=== PATIENT | female | born 1970 | race African-American/Black ===

== ENCOUNTER 2017-06-16 00:45 | Inpatient (IN) | payer OTHER ==
[2017-06-16] VITALS (8 sets, daily range): BP systolic 102–148; BP diastolic 62–95
[~2017-06-16] VITALS: Ht 160 cm; Wt 156.9 kg
[~2017-06-16 00:45] MED LIST: BACITRACIN1 APPLIC TOPIC; BACTRIM DS TAB1 EAC1 ORAL; CLINDAMYCIN HC300 MG ORAL; CLOTRIMAZOLE15 GM TOPIC; CYCLOBENZAPRINE10 MG ORAL; IBUPROFEN600 MG ORAL; KEFLEX500 MG ORAL; LASIX20 M1 ORAL; NKM; TRAMADOL HCL50 MG ORAL
[2017-06-16] MEDS ORDERED: Albuterol ud Inhalation HHN ONE (01:15)
--- NOTE | 2017-06-16 01:15 | Emergency Room Report ---
History of Present Illness General Chief Complaint: Dyspnea/Respdistress Source: Patient Present Illness HPI This is a 46-year-old female with no past medical history. She does have history of morbid obesity with a BMI of 62. She presents with acute onset of shortness of breath. She is walking up the steps and felt acute onset of shortness of breath around 11 PM. No cough or congestion. No runny nose. No chest pain. Also complaining of left calf pain. Pain just started about a week ago and went away. That she's been complaining of left calf pain all day today. Pain is 8 out of 10. She quit smoking about 5 years ago. No family history of blood clot other in the distant cousin. No history of recent surgery or prolonged immobilization. No history of control pill. Patient also complained of sore throat for the last 2 weeks. Worse with swallowing. No fever chills but no nausea no vomiting. No cough or congestion. Allergies: Coded Allergies: No Known Allergies (Unverified , 08/31/14) Patient History Past Medical History: none, see triage record, old chart reviewed Past Surgical History: none Pertinent Family History: none Social History: Denies: drug use Last Menstrual Period: 3 yrs ago Now: No Immunizations: other Reviewed Nursing Documentation: PMH: Agreed; PSxH: Agreed Nursing Documentation-PMH Hx Diabetes: No - CELLULITIS on Lt lower leg in 2012 Review of Systems Eye: Denies: eye pain, blurred vision ENT: Denies: ear pain, nose congestion, throat swelling Respiratory: Reports: shortness of breath; Denies: cough Cardiovascular: Denies: chest pain, palpitations Gastrointestinal: Denies: abdominal pain, diarrhea, nausea, vomiting Musculoskeletal: Denies: back pain, joint pain Skin: Denies: rash Neurological: Denies: headache, numbness Endocrine: Denies: increased thirst, increased urine Hematologic/Lymphatic: Denies: easy bruising All Other Systems: negative except mentioned in HPI Physical Exam Vital Signs Date Time Temp Pulse Resp B/P (MAP) Pulse Ox O2 Delivery O2 Flow Rate FiO2 06/16/17 00:55 97.6 89 18 148/95 90 Room Air 97.5 vitals with hypoxia Sp02 EP Interpretation: reviewed, normal General Appearance: well appearing, alert, mild distress, obese Head: normocephalic, atraumatic Eyes: bilateral eye PERRL, bilateral eye EOMI ENT: hearing grossly normal, other - thrush on tongue Neck: full range of motion, supple, no meningismus Respiratory: chest non-tender, normal breath sounds, decreased breath sounds Cardiovascular #1: regular rate, rhythm, no murmur Gastrointestinal: normal bowel sounds, non tender, no mass, no organomegaly, no bruit, non-distended Musculoskeletal: back normal, gait/station normal, normal range of motion, other - left calf: no edema. NVI Neurologic: alert, oriented x3 Psychiatric: mood/affect normal Skin: warm/dry Medical Decision Making Diagnostic Impression: Primary Impression: Pulmonary embolism Qualified Codes: I26.99 - Other pulmonary embolism without acute cor pulmonale Additional Impressions: Morbid obesity with BMI of 60.0-69.9, adult Acute hyperglycemia ER Course Patient presents with chest pain and shortness of breath. CT scan showed left pulmonary emboli. Her calf pain is probably a DVT. Patient is dyspneic with any exertion. Lovenox started. Will admit for anticoagulation and further workup. Laboratory Tests Test 06/16/17 01:30 06/16/17 01:50 White Blood Count 6.6 K/UL (4.8-10.8) Red Blood Count 4.51 M/UL (4.20-5.40) Hemoglobin 12.1 G/DL (12.0-16.0) Hematocrit 37.4 % (37.0-47.0) Mean Corpuscular Volume 83 FL (80-99) Mean Corpuscular Hemoglobin 26.9 PG (27.0-31.0) L Mean Corpuscular Hemoglobin Concent 32.4 G/DL (32.0-36.0) Red Cell Distribution Width 14.2 % (11.6-14.8) Platelet Count 139 K/UL (150-450) L Mean Platelet Volume 9.5 FL (6.5-10.1) Neutrophils (%) (Auto) 60.3 % (45.0-75.0) Lymphocytes (%) (Auto) 31.4 % (20.0-45.0) Monocytes (%) (Auto) 5.6 % (1.0-10.0) Eosinophils (%) (Auto) 2.0 % (0.0-3.0) Basophils (%) (Auto) 0.7 % (0.0-2.0) Prothrombin Time 10.1 SEC (9.30-11.50) Prothromb Time International Ratio 1.0 (0.9-1.1) Activated Partial Thromboplast Time 24 SEC (23-33) D-Dimer 6.47 mg/L FEU (0.00-0.49) H Sodium Level 140 MMOL/L (136-145) Potassium Level 3.6 MMOL/L (3.5-5.1) Chloride Level 105 MMOL/L (98-107) Carbon Dioxide Level 28 MMOL/L (21-32) Anion Gap 7 mmol/L (5-15) Blood Urea Nitrogen 11 mg/dL (7-18) Creatinine 1.1 MG/DL (0.55-1.30) Estimat Glomerular Filtration Rate > 60 mL/min (>60) Glucose Level 215 MG/DL (74-106) H Calcium Level 9.2 MG/DL (8.5-10.1) Total Bilirubin 0.2 MG/DL (0.2-1.0) Aspartate Amino Transf (AST/SGOT) 34 U/L (15-37) Alanine Aminotransferase (ALT/SGPT) 48 U/L (12-78) Alkaline Phosphatase 93 U/L (46-116) Total Creatine Kinase 172 U/L (26-308) Creatine Kinase MB 0.7 NG/ML (0.0-3.6) Creatine Kinase MB Relative Index 0.4 Troponin I 0.019 ng/mL (0.000-0.056) Pro-B-Type Natriuretic Peptide 36 pg/mL (0-125) Total Protein 7.3 G/DL (6.4-8.2) Albumin 3.3 G/DL (3.4-5.0) L Globulin 4.0 g/dL Albumin/Globulin Ratio 0.8 (1.0-2.7) L HIV (1&2) Antibody Rapid Negative (NEGATIVE) Urine Color Pale yellow Urine Appearance Clear Urine pH 6 (4.5-8.0) Urine Specific [place] 1.015 (1.005-1.035) Urine Protein Negative (NEGATIVE) Urine Glucose (UA) Negative (NEGATIVE) Urine Ketones Negative (NEGATIVE) Urine Occult Blood Negative (NEGATIVE) Urine Nitrite Negative (NEGATIVE) Urine Bilirubin Negative (NEGATIVE) Urine Urobilinogen Normal MG/DL (0.0-1.0) Urine Leukocyte Esterase Negative (NEGATIVE) Urine HCG, Qualitative Negative (NEGATIVE) Lab Results Impression labs with elevated d-dimer EKG Diagnostic Results Rate: normal Rhythm: NSR ST Segments: other - NSST changes Rhythm Strip Diag. Results Rhythm Strip Time: 03:58 EP Interpretation: yes Rate: 100 Rhythm: NSR, no PVC's, no ectopy Chest X-Ray Diagnostic Results Chest X-Ray Diagnostic Results : Chest X-Ray Ordered: Yes # of Views/Limited/Complete: 1 View Indication: Shortness of Breath EP Interpretation: Yes Interpretation: no consolidation, no effusion, no pneumothorax, no acute cardiopulmonary disease Impression: No acute disease Electronically Signed by: J Carlos Aguilera MD CT/MRI/US Diagnostic Results CT/MRI/US Diagnostic Results : Imaging Test Ordered: CT chest Impression Read by radiologist. Small pulmonary emboli in the distal left lobar pulmonary artery extending to segmental pulmonary artery supplying the left upper lobe. Lungs clear. Last Vital Signs Date Time Temp Pulse Resp B/P (MAP) Pulse Ox O2 Delivery O2 Flow Rate FiO2 06/16/17 00:55 97.6 89 18 148/95 90 Room Air 97.5 Status: improved Disposition: ADMITTED INPATIENT Condition: Serious J CARLOS AGUILERA M.D. Jun 16, 2017 01:15
[2017-06-16 01:54] LABS: BASOPHILS % (AUTO) 0.7 % (0.0-2.0); HEMATOCRIT 37.4 % (37.0-47.0); HEMOGLOBIN 12.1 G/DL (12.0-16.0); LYMPHOCYTES % (AUTO) 31.4 % (20.0-45.0); MEAN CORPUSCULAR VOLUME 83 FL (80-99); MONOCYTES % (AUTO) 5.6 % (1.0-10.0); NEUTROPHILS % (AUTO) 60.3 % (45.0-75.0); PLATELET COUNT 139 K/UL (150-450); RED BLOOD COUNT 4.51 M/UL (4.20-5.40); RED CELL DISTRIBUTION WIDTH 14.2 % (11.6-14.8); WHITE BLOOD COUNT 6.6 K/UL (4.8-10.8)
[2017-06-16 01:57] LABS: ANION GAP 7 mmol/L (5-15); BLOOD UREA NITROGEN 11 mg/dL (7-18); CALCIUM 9.2 MG/DL (8.5-10.1); CARBON DIOXIDE 28 MMOL/L (21-32); CHLORIDE 105 MMOL/L (98-107); CREATININE 1.1 MG/DL (0.55-1.30); POTASSIUM 3.6 MMOL/L (3.5-5.1); SODIUM 140 MMOL/L (136-145)
[2017-06-16 02:11] LABS: APPEARANCE,URINE CLEAR; BILIRUBIN, URINE NEGATIVE (NEGATIVE); COLOR,URINE PALE YELLOW; GLUCOSE, URINE (UA) NEGATIVE (NEGATIVE); KETONES,URINE NEGATIVE (NEGATIVE); LEUKOCYTE ESTERASE ,URINE NEGATIVE (NEGATIVE); NITRITE,URINE NEGATIVE (NEGATIVE); PH,URINE 6 (4.5-8.0); UROBILINOGEN,URINE NORMAL MG/DL (0.0-1.0)
[2017-06-16 02:13] LABS: ALANINE AMINOTRANSFERASE 48 U/L (12-78); ALBUMIN 3.3 G/DL (3.4-5.0); ALBUMIN/GLOBULIN RATIO 0.8 (1.0-2.7); ALKALINE PHOSPHATASE 93 U/L (46-116); ASPARTATE AMINO TRANSFERASE 34 U/L (15-37); BILIRUBIN,TOTAL 0.2 MG/DL (0.2-1.0); CKMB 0.7 NG/ML (0.0-3.6); CREATINE KINASE 172 U/L (26-308)
[2017-06-16 02:15] LABS: PROTEIN,URINE NEGATIVE (NEGATIVE)
[2017-06-16] MEDS ORDERED: Enoxaparin 150mg Inj SUBQ ONE (04:00)
[2017-06-16] MEDS ORDERED: Enoxaparin 100mg Inj SUBQ ONE (04:06)
[2017-06-16] MEDS ORDERED: Enoxaparin 30mg Inj SUBQ ONE (04:13)
[2017-06-16] MEDS ORDERED: Enoxaparin 120 mg inj SUBQ ONE (04:13)
[2017-06-16] MEDS ORDERED: Albuterol/Ipratropium 3ml neb HHN PRN (06:00)
[2017-06-16] MEDS ORDERED: Miralax 17gm pkt ORAL PRN (06:00)
[2017-06-16] MEDS: Docusate 100mg cap ORAL SCH ×2 (09:36→22:53)
[2017-06-16 09:55] LABS: CHOLESTEROL 185 MG/DL (< 200); HDL CHOLESTEROL 53 MG/DL (40-60); TRIGLYCERIDES 151 MG/DL (30-150)
--- NOTE | 2017-06-16 10:59 | Diagnostic Imaging Report ---
ndication: Shortness of breath Technique: IV administration nonionic contrast. Spiral acquisitions obtained from the lung bases to the lung apices. Multiplanar and 3-D reconstructions were generated. Total dose length product 1498.51 mGycm. CTDIvol(s) 45.81 mGy. Dose reduction achieved using automated exposure control Comparison: none Findings: Pulmonary arterial opacification is suboptimal. Emboli are seen within the bilateral upper lobe pulmonary arteries and within the right middle lobe pulmonary arteries. Due to the poor opacification other more peripheral emboli cannot be confidently excluded. The pulmonary arteries are normal in caliber. There is no right ventricular dilatation. No evidence of thoracic aortic aneurysm or dissection. The lungs are clear. No infiltrates, effusions, or congestion. Normal heart size. No pericardial effusion. No mediastinal or hilar mass or adenopathy. No axillary or chest wall mass or adenopathy. The included upper abdominal viscera demonstrate demonstrate mild fatty hepatic change. Impression: Positive for bilateral upper lobe pulmonary emboli, as described Clear lungs Mild fatty liver This agrees with the preliminary interpretation provided overnight by [facility] teleradiology service, with minor discrepancy. The CT scanner at [facility] is accredited by the [employer] and the scans are performed using protocols designed to limit radiation exposure to as low as reasonably achievable to attain images of sufficient resolution adequate for diagnostic evaluation.
--- NOTE | 2017-06-16 11:41 | Diagnostic Imaging Report ---
Indication: Shortness of breath Technique: One view of the chest Comparison: 11/30/2015 Findings: Lungs and pleural spaces are clear. Heart size is upper limits normal . No significant change Impression: No acute process
--- NOTE | 2017-06-16 13:41 | History and Physical ---
History of Present Illness General Date patient seen: Jun 16, 2017 Time patient seen: 13:41 Reason for Hospitalization: Dyspnea/Resp distress Present Illness HPI 46y/o morbidly obese female who presents with acute SOB. Pt nots LLE calf pain for the past few days. She then suddenly felt SOB whlie walking up stairs. 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 Denies f/c, n/v, d /c, chest pain. C/o cough, sore throat. No hemoptysis noted. Denies trauma, falls, recent flight travel. Denies h/o DVT/PE. Denies tobacco abuse. In ED, pt had elevated D-dimer. CT angio showed e/o b/l PE. Venous duple neg for DVT. Pt started on lovenox. Allergies: Coded Allergies: No Known Allergies (Unverified , 08/31/14) Medication History Scheduled Clindamycin Hcl (Clindamycin Hcl), 300 MG ORAL THREE TIMES A DAY Clotrimazole* (Lotrimin*), 1 APPLIC TOPIC TWICE A DAY Furosemide* (Lasix*), 20 MG ORAL DAILY No Known Medications* (NKM - No Known Medications*), 0 ., (Reported) Patient History History Provided By: Patient, Friend Healthcare decision maker Resuscitation status Full Code Advanced Directive on File Past Medical/Surgical History Past Medical/Surgical History: (1) Morbid obesity with BMI of 60.0-69.9, adult (2) Cellulitis of left lower extremity Social History Social History: (1) No significant social history Review of Systems Constitutional: Reports: no symptoms Eye: Reports: no symptoms ENT: Reports: throat pain Respiratory: Reports: cough, shortness of breath, HSIEH Cardiovascular: Reports: no symptoms Gastrointestinal: Reports: no symptoms Genitourinary: Reports: no symptoms Musculoskeletal: Reports: muscle pain Skin: Reports: no symptoms Psychiatric: Reports: no symptoms Neurological: Reports: no symptoms Endocrine: Reports: no symptoms Hematologic/Lymphatic: Reports: no symptoms Physical Exam Physical Exam Narrative General: alert, cooperative, no distress, appears stated age, morbidly obese Head: normocephalic, without obvious abnormality, atraumatic Eyes: conjunctivae/corneas clear. PERRL, EOM's intact Throat: lips, mucosa, and tongue normal. MMM Neck: supple, symmetrical, trachea midline, and no JVD Lungs: clear to auscultation bilaterally Heart: regular rate and rhythm, S1, S2 normal, no murmur, click, rub or gallop Abdomen: soft, non-tender, non-distended, bowel sounds normal; no masses or organomegaly Extremities: extremities normal, atraumatic, no cyanosis or edema Pulses: 2+ and symmetric Skin: skin color, texture, turgor normal; no rashes or lesions Neurologic: grossly normal, no focal deficits Last 24 Hour Vital Signs Date Time Temp Pulse Resp B/P (MAP) Pulse Ox O2 Delivery O2 Flow Rate FiO2 06/16/17 11:43 97.3 72 20 112/64 99 4.0 97.3 06/16/17 08:10 97.5 60 17 121/62 99 Room Air 3.0 21 97.5 06/16/17 07:27 97.5 60 17 121/62 99 Room Air 3.0 21 97.5 06/16/17 05:27 61 15 102/81 99 Room Air 06/16/17 03:51 94 16 146/76 96 Nasal Cannula 3.0 06/16/17 01:55 89 20 Room Air 21 06/16/17 01:55 97.5 89 20 148/95 95 Room Air 21 97.5 06/16/17 01:40 91 20 97 Room Air 21 06/16/17 01:31 89 20 Room Air 21 06/16/17 01:30 89 20 95 Room Air 21 06/16/17 00:55 97.6 89 18 148/95 90 Room Air 97.5 Laboratory Tests Test 06/16/17 01:30 06/16/17 01:50 White Blood Count 6.6 K/UL (4.8-10.8) Red Blood Count 4.51 M/UL (4.20-5.40) Hemoglobin 12.1 G/DL (12.0-16.0) Hematocrit 37.4 % (37.0-47.0) Mean Corpuscular Volume 83 FL (80-99) Mean Corpuscular Hemoglobin 26.9 PG (27.0-31.0) L Mean Corpuscular Hemoglobin Concent 32.4 G/DL (32.0-36.0) Red Cell Distribution Width 14.2 % (11.6-14.8) Platelet Count 139 K/UL (150-450) L Mean Platelet Volume 9.5 FL (6.5-10.1) Neutrophils (%) (Auto) 60.3 % (45.0-75.0) Lymphocytes (%) (Auto) 31.4 % (20.0-45.0) Monocytes (%) (Auto) 5.6 % (1.0-10.0) Eosinophils (%) (Auto) 2.0 % (0.0-3.0) Basophils (%) (Auto) 0.7 % (0.0-2.0) Prothrombin Time 10.1 SEC (9.30-11.50) Prothromb Time International Ratio 1.0 (0.9-1.1) Activated Partial Thromboplast Time 24 SEC (23-33) D-Dimer 6.47 mg/L FEU (0.00-0.49) H Sodium Level 140 MMOL/L (136-145) Potassium Level 3.6 MMOL/L (3.5-5.1) Chloride Level 105 MMOL/L (98-107) Carbon Dioxide Level 28 MMOL/L (21-32) Anion Gap 7 mmol/L (5-15) Blood Urea Nitrogen 11 mg/dL (7-18) Creatinine 1.1 MG/DL (0.55-1.30) Estimat Glomerular Filtration Rate > 60 mL/min (>60) Glucose Level 215 MG/DL (74-106) H Hemoglobin A1c 7.6 % (4.3-6.0) H Calcium Level 9.2 MG/DL (8.5-10.1) Total Bilirubin 0.2 MG/DL (0.2-1.0) Aspartate Amino Transf (AST/SGOT) 34 U/L (15-37) Alanine Aminotransferase (ALT/SGPT) 48 U/L (12-78) Alkaline Phosphatase 93 U/L (46-116) Total Creatine Kinase 172 U/L (26-308) Creatine Kinase MB 0.7 NG/ML (0.0-3.6) Creatine Kinase MB Relative Index 0.4 Troponin I 0.019 ng/mL (0.000-0.056) Pro-B-Type Natriuretic Peptide 36 pg/mL (0-125) Total Protein 7.3 G/DL (6.4-8.2) Albumin 3.3 G/DL (3.4-5.0) L Globulin 4.0 g/dL Albumin/Globulin Ratio 0.8 (1.0-2.7) L Triglycerides Level 151 MG/DL (30-150) H Cholesterol Level 185 MG/DL (< 200) LDL Cholesterol 118 mg/dL (<100) H HDL Cholesterol 53 MG/DL (40-60) Cholesterol/HDL Ratio 3.5 (3.3-4.4) Thyroid Stimulating Hormone (TSH) 1.136 uiU/mL (0.358-3.740) HIV (1&2) Antibody Rapid Negative (NEGATIVE) Urine Color Pale yellow Urine Appearance Clear Urine pH 6 (4.5-8.0) Urine Specific [place] 1.015 (1.005-1.035) Urine Protein Negative (NEGATIVE) Urine Glucose (UA) Negative (NEGATIVE) Urine Ketones Negative (NEGATIVE) Urine Occult Blood Negative (NEGATIVE) Urine Nitrite Negative (NEGATIVE) Urine Bilirubin Negative (NEGATIVE) Urine Urobilinogen Normal MG/DL (0.0-1.0) Urine Leukocyte Esterase Negative (NEGATIVE) Urine HCG, Qualitative Negative (NEGATIVE) Height (Feet): 5 Height (Inches): 3.00 Weight (Pounds): 346 Medications Current Medications Medications (Trade) Dose Ordered Sig/Milo Route PRN Reason Start Time Stop Time Status Last Admin Dose Admin Acetaminophen (Tylenol) 650 mg Q4H PRN ORAL Mild Pain (Pain Scale 1-3) 06/16/17 06:00 07/16/17 05:59 Acetaminophen (Tylenol) 650 mg Q4H PRN ORAL fever 06/16/17 06:00 07/16/17 05:59 Albuterol/ Ipratropium (Albuterol/ Ipratropium) 3 ml Q4H PRN HHN Shortness of Breath 06/16/17 06:00 06/21/17 05:59 Bisacodyl (Dulcolax) 10 mg DAILYPRN PRN RECTAL Constipation 06/16/17 06:00 07/16/17 05:59 Dextrose (Dextrose 50%) 25 ml STAT PRN IV Hypoglycemia 06/16/17 06:00 07/16/17 05:59 Dextrose (Dextrose 50%) 50 ml STAT PRN IV Hypoglycemia 06/16/17 06:00 07/16/17 05:59 Docusate Sodium (Colace) 100 mg EVERY 12 HOURS ORAL 06/16/17 09:00 07/16/17 08:59 06/16/17 09:36 Enoxaparin Sodium (Lovenox) 160 mg EVERY 12 HOURS SUBQ 06/16/17 09:00 07/16/17 08:59 UNV Ondansetron HCl (Zofran) 4 mg Q6H PRN IVP Nausea & Vomiting 06/16/17 06:00 07/16/17 05:59 Pantoprazole (Protonix) 40 mg ACBREAKFAST ORAL 06/16/17 06:30 07/16/17 06:29 06/16/17 09:36 Polyethylene Glycol (Miralax) 17 gm DAILYPRN PRN ORAL Constipation 06/16/17 06:00 07/16/17 05:59 Assessment/Plan Problem List: (1) Pulmonary embolism ICD Codes: I26.99 - Other pulmonary embolism without acute cor pulmonale SNOMED: 18290680, 560625288 Qualifiers: Qualified Codes: I26.99 - Other pulmonary embolism without acute cor pulmonale (2) Elevated troponin ICD Codes: R74.8 - Abnormal levels of other serum enzymes SNOMED: 638281075, 792134323, 441300127 (3) DM2 (diabetes mellitus, type 2) ICD Codes: E11.9 - Type 2 diabetes mellitus without complications SNOMED: 39333950 (4) Morbid obesity with BMI of 60.0-69.9, adult ICD Codes: E66.01 - Morbid (severe) obesity due to excess calories; Z68.44 - Body mass index (BMI) 60.0-69.9, adult SNOMED: 488815657, 248482027 Status: stable Assessment/Plan Admit to tele Pulmonology and heme/onc consulted Cont lovenox per pharmacy for treatment of PE Trend trop/EKG (likely demand ischemia in setting of PE) Check TTE Cardiology consulted Pt w/ new diagnosis of DM2 w/ A1C 7.6. Will d/w pt regarding starting treatment MINISTERIO Diabetic teaching Scratch Finisher consult Community Relations Representative on exercise, weight loss Possible d/c tomorrow on oral anticoagulation FULL CODE D/w pt, RN, pulmonology regarding mgmt and dispo Giuliano Blackwell M.D. Jun 16, 2017 13:41
--- NOTE | 2017-06-16 14:13 | Consultation ---
Consult Note Consult Note PULMONARY CONSULTATION REFERRING PHYSICIAN: Giuliano Blackwell MD REASON FOR CONSULTATION: b LE HPI: 46 F h/o morbid obesity, non-smoker h/o LLE cellulitis in the past p/w acute LLE calf pain and SOB. No GIBBS, no dizziness, no CP, no F/C, no cough, no wheezing. No recent travel. 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 She denies any trauma or injury. Pain and SOB both acutely occurred while walking up stairs. No FHx or personal h/o VTE other than a cousin with DVT. No h/o T/E/D use. W/U in the ER revealed an elevated D-dimer, neg Duplex, CT-A with b PE and TTE without e/o RV strain or failure. PMH: Morbid obesity, LLE cellulitis in the past, DDD, DJD PSH: C/X x 5 ALL: NKDA Active Scripts Medications Dose Route/Sig Max Daily Dose Days Date Category Clindamycin Hcl (Clindamycin HCl) 300 Mg Capsule 300 Mg ORAL THREE TIMES A DAY 11/30/15 Rx Lotrimin* (Clotrimazole) 15 Gm Cream..g. 1 Applic TOPIC TWICE A DAY 11/30/15 Rx Lasix* (Furosemide) 20 Mg Tablet 20 Mg ORAL DAILY 11/30/15 Rx NKM - No Known Medications* (No Known Medications*) . 0 . 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6 89 18 148/95 90 Room Air 97.5 NAD, AAOx3, obese female NC/AT, OPC c MMM, MP 4 Supple s LAD or JVD CTA RRR S/NT/ND c NABS No C/C/E CT-A: Extensive b LE Duplex: Tech difficulty study, no DVT Laboratory Tests Test 06/16/17 01:30 06/16/17 01:50 White Blood Count 6.6 K/UL (4.8-10.8) Red Blood Count 4.51 M/UL (4.20-5.40) Hemoglobin 12.1 G/DL (12.0-16.0) Hematocrit 37.4 % (37.0-47.0) Mean Corpuscular Volume 83 FL (80-99) Mean Corpuscular Hemoglobin 26.9 PG (27.0-31.0) L Mean Corpuscular Hemoglobin Concent 32.4 G/DL (32.0-36.0) Red Cell Distribution Width 14.2 % (11.6-14.8) Platelet Count 139 K/UL (150-450) L Mean Platelet Volume 9.5 FL (6.5-10.1) Neutrophils (%) (Auto) 60.3 % (45.0-75.0) Lymphocytes (%) (Auto) 31.4 % (20.0-45.0) Monocytes (%) (Auto) 5.6 % (1.0-10.0) Eosinophils (%) (Auto) 2.0 % (0.0-3.0) Basophils (%) (Auto) 0.7 % (0.0-2.0) Prothrombin Time 10.1 SEC (9.30-11.50) Prothromb Time International Ratio 1.0 (0.9-1.1) Activated Partial Thromboplast Time 24 SEC (23-33) D-Dimer 6.47 mg/L FEU (0.00-0.49) H Sodium Level 140 MMOL/L (136-145) Potassium Level 3.6 MMOL/L (3.5-5.1) Chloride Level 105 MMOL/L (98-107) Carbon Dioxide Level 28 MMOL/L (21-32) Anion Gap 7 mmol/L (5-15) Blood Urea Nitrogen 11 mg/dL (7-18) Creatinine 1.1 MG/DL (0.55-1.30) Estimat Glomerular Filtration Rate > 60 mL/min (>60) Glucose Level 215 MG/DL (74-106) H Hemoglobin A1c 7.6 % (4.3-6.0) H Calcium Level 9.2 MG/DL (8.5-10.1) Total Bilirubin 0.2 MG/DL (0.2-1.0) Aspartate Amino Transf (AST/SGOT) 34 U/L (15-37) Alanine Aminotransferase (ALT/SGPT) 48 U/L (12-78) Alkaline Phosphatase 93 U/L (46-116) Total Creatine Kinase 172 U/L (26-308) Creatine Kinase MB 0.7 NG/ML (0.0-3.6) Creatine Kinase MB Relative Index 0.4 Troponin I 0.019 ng/mL (0.000-0.056) Pro-B-Type Natriuretic Peptide 36 pg/mL (0-125) Total Protein 7.3 G/DL (6.4-8.2) Albumin 3.3 G/DL (3.4-5.0) L Globulin 4.0 g/dL Albumin/Globulin Ratio 0.8 (1.0-2.7) L Triglycerides Level 151 MG/DL (30-150) H Cholesterol Level 185 MG/DL (< 200) LDL Cholesterol 118 mg/dL (<100) H HDL Cholesterol 53 MG/DL (40-60) Cholesterol/HDL Ratio 3.5 (3.3-4.4) Thyroid Stimulating Hormone (TSH) 1.136 uiU/mL (0.358-3.740) HIV (1&2) Antibody Rapid Negative (NEGATIVE) Urine Color Pale yellow Urine Appearance Clear Urine pH 6 (4.5-8.0) Urine Specific [place] 1.015 (1.005-1.035) Urine Protein Negative (NEGATIVE) Urine Glucose (UA) Negative (NEGATIVE) Urine Ketones Negative (NEGATIVE) Urine Occult Blood Negative (NEGATIVE) Urine Nitrite Negative (NEGATIVE) Urine Bilirubin Negative (NEGATIVE) Urine Urobilinogen Normal MG/DL (0.0-1.0) Urine Leukocyte Esterase Negative (NEGATIVE) Urine HCG, Qualitative Negative (NEGATIVE) Assessment/Plan ASSESSMENT: 46 F non-smoker with a h/o morbid obesity p/w acute L calf pain & SOB noted to have b PE without e/o DVT and without RV strain. She is hemodynamically stable. 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 on U/S, ? whether LE clot was initially there (or clot in transit) and embolized distally without residual clot or just poor study -Morbid obesity -Likely ALISIA/OHV -H/O LLE cellulitis -DM PLAN -ABG -F/U repeat ECG/trop -Tele -Continue LMWH for now, will likely start NOAC tomorrow -Will need at least 3-6 months of A/C -Check plain film LLE to R/O occult fx or trauma -Weight loss, diet and exercise -Can consider outpatient hypercoag w/u -Patient encouraged to ambulate frequently Katy Sands MD, [facility] Pulmonary & Critical Care Medicine KATY SANDS M.D. Jun 16, 2017 14:13
--- NOTE | 2017-06-16 16:52 | Diagnostic Imaging Report ---
Indication: Reason For Exam: PAIN Technique: 2 views of the left tibia and fibula Comparison: none Findings: Small anterior calcifications likely reflect tiny phleboliths. No acute fractures. No dislocations. No radiopaque foreign body Impression: Negative
[2017-06-16] MEDS: Enoxaparin 80mg Inj SUBQ SCH (17:26)
[2017-06-16] MEDS: NovoLOG Insulin Flexpen SUBQ SCH ×2 (17:29→21:00)
[2017-06-16] MEDS ORDERED: Chloraseptic Spray 20mL Bottle ORAL PRN (17:50)
[2017-06-16 20:33] LABS: ALANINE AMINOTRANSFERASE 45 U/L (12-78); ALBUMIN 3.2 G/DL (3.4-5.0); ALKALINE PHOSPHATASE 87 U/L (46-116); ASPARTATE AMINO TRANSFERASE 22 U/L (15-37); BILIRUBIN,DIRECT 0.1 MG/DL (0.0-0.3); BILIRUBIN,TOTAL 0.3 MG/DL (0.2-1.0)
[2017-06-17] VITALS: BP 138/95
[2017-06-17] MEDS: Warfarin Sodium 5mg ORAL SCH ×2 (00:55→17:14)
--- NOTE | 2017-06-17 06:00 | Consultation ---
DATE OF CONSULTATION: 06/16/2017 ADMITTING PHYSICIAN: Esme Wu M.D. CONSULTING PHYSICIAN: Alek Green M.D. REQUESTING PHYSICIAN: Esme Wu M.D. REASON FOR CONSULTATION: Bilateral pulmonary emboli. HISTORY OF PRESENT ILLNESS: Dear Dr. Esme Wu, Today, I had an opportunity to see one of your patients, who as you are aware is a 46-year-old delightful female without any significant past medical history except history of obesity. The patient presents with acute onset of shortness of breath. She was working upstairs and felt acute onset of shortness of breath. The patient has been complaining of left calf pain all day before it happened. The patient has a history of smoking, but quit five years ago. The patient denies any family history of blood clots. No history of hormonal use. No history of control pills use. No history of recent surgery or prolonged immobilization. CT scan angio of the chest revealed bilateral pulmonary emboli. My service was called to handle the issue of anticoagulation for bilateral pulmonary emboli, rule out hypercoagulable state. PAST MEDICAL HISTORY: 1. Obesity. 2. History of smoking, but quit several years ago. 3. History of cellulitis of left lower extremities in 2012. MEDICATIONS: 1. Coumadin. 2. Insulin. 3. Lovenox. 4. Docusate. 5. Protonix. 6. Albuterol. 7. Tylenol. 8. Bisacodyl. 9. Zofran. 10. Dextrose. FAMILY HISTORY: Noncontributory. SOCIAL HISTORY: History of smoking, but quit several years ago. No history of alcohol abuse. No history of illicit drug use. REVIEW OF SYSTEMS: GENERAL: The patient not in any significant distress, but looks chronically ill. RESPIRATORY: Mild shortness of breath on exertion. MUSCULOSKELETAL: The patient claimed muscle aches and back pain. PHYSICAL EXAMINATION: VITAL SIGNS: T-max 97 degrees, respiratory rate 20, heart rate 80, and blood pressure 130/80. HEENT: Head, normocephalic and atraumatic. NECK: Supple. LUNGS: Decreased breath sounds bilaterally with a few rhonchi in the base. HEART: S1 and S2 regular. ABDOMEN: Soft, benign. No organomegaly present. Bowel sounds present. EXTREMITIES: No cyanosis, clubbing, or edema. LABORATORY DATA: WBC 6.6, hemoglobin 12.1, hematocrit 37.4, and platelets 139. D-dimer 6.47. Chemistry shows hemoglobin A1c 7.6. IMPRESSION: 1. Bilateral pulmonary emboli. 2. Possible hypercoagulable state. 3. Left calf pain. 4. Cellulitis left lower extremity. 5. Morbid obesity. 6. Possible obstructive sleep apnea. 7. History of left lower extremity cellulitis. 8. Diabetes mellitus, early stage. 9. Failure to thrive. RECOMMENDATIONS: 1. Watch count. 2. Watch coagulopathy. 3. Coumadin p.o. 4. Lovenox subcutaneously. 5. Hypercoagulable state workup. 6. Weight loss. 7. Diet. 8. Exercise. 9. Skin care. 10. Nutrition. 11. Pulmonary followup. 12. Close followup. 13. Discussed with staff. 14. Continue current treatment. Dear Dr. Wu, thank you very much for the opportunity to participate in the care of one of your patients. It is a privilege to me to be on this interesting and challenging case. Alek Green MD DR: ASIM JOB#: [id number] CC:
[2017-06-17] MEDS: NovoLOG Insulin Flexpen SUBQ SCH ×3 (06:37→17:12)
[2017-06-17 08:00] VITALS: BP 142/69
[2017-06-17 08:08] LABS: ANION GAP 6 mmol/L (5-15); BLOOD UREA NITROGEN 9 mg/dL (7-18); CALCIUM 9.4 MG/DL (8.5-10.1); CARBON DIOXIDE 30 MMOL/L (21-32); CHLORIDE 102 MMOL/L (98-107); CREATININE 0.9 MG/DL (0.55-1.30); POTASSIUM 3.8 MMOL/L (3.5-5.1); SODIUM 138 MMOL/L (136-145)
[2017-06-17 08:14] LABS: BASOPHILS % (AUTO) 1.3 % (0.0-2.0); EOSINOPHILS % (AUTO) 3.1 % (0.0-3.0); HEMATOCRIT 37.9 % (37.0-47.0); HEMOGLOBIN 12.1 G/DL (12.0-16.0); LYMPHOCYTES % (AUTO) 39.2 % (20.0-45.0); MEAN CORPUSCULAR VOLUME 84 FL (80-99); MONOCYTES % (AUTO) 6.4 % (1.0-10.0); PLATELET COUNT 139 K/UL (150-450); RED BLOOD COUNT 4.51 M/UL (4.20-5.40); RED CELL DISTRIBUTION WIDTH 14.4 % (11.6-14.8); WHITE BLOOD COUNT 6.7 K/UL (4.8-10.8)
[2017-06-17] MEDS: Docusate 100mg cap ORAL SCH (08:16)
[2017-06-17] MEDS: Enoxaparin 80mg Inj SUBQ SCH (08:39)
--- NOTE | 2017-06-17 08:43 | Diagnostic Imaging Report ---
Indication: Pain Technique: 2 views of the left ankle Comparison: none Findings: Exam is somewhat limited as only 2 views provided. No acute fractures. No dislocations. Joint spaces are preserved Impression: No acute process
[2017-06-17] MEDS ORDERED: HYDROcodone/Acetamin 10/325 tab ORAL PRN (11:00)
[2017-06-17 12:00] VITALS: BP 154/89
--- NOTE | 2017-06-17 14:13 | Diagnostic Imaging Report ---
Indication: Foot pain Technique: 2 views left foot Comparison: none Findings: No dislocations. The joint spaces are preserved. Impression: No acute process
--- NOTE | 2017-06-17 14:18 | Diagnostic Imaging Report ---
Indication: Pain off and on Technique: 2 views of the knee Comparison: none Findings: There is slight degenerative narrowing of the lateral joint compartment. There are medial and lateral osteophytes. No acute fractures. No dislocations. There is also patellofemoral joint space narrowing and osteophytes. Impression: Degenerative changes, as described
[2017-06-17] MEDS ORDERED: ELIQUIS5 MG PO (14:44)
[2017-06-17] MEDS ORDERED: METFORMIN HCL500 M1 ORAL (15:47)
[2017-06-17] MEDS ORDERED: ATORVASTATIN CA40 MG ORAL (15:47)
[2017-06-17 16:00] VITALS: BP 135/90
[2017-06-17] MEDS ORDERED: NS w/KCl 20mEq 1,000 ML IV SCH (16:30)
--- NOTE | 2017-06-17 18:44 | Pulmonology Progress Note ---
Assessment/Plan Problems: (1) Pulmonary embolism (2) Elevated troponin (3) Morbid obesity with BMI of 60.0-69.9, adult (4) Edema Assessment/Plan ASSESSMENT: 46 F non-smoker with a h/o morbid obesity p/w acute L calf pain & SOB noted to have b PE without e/o DVT and without RV strain. She is hemodynamically stable. 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 on U/S, ? whether LE clot was initially there (or clot in transit) and embolized distally without residual clot or just poor study -Morbid obesity -Likely ALISIA/OHV -H/O LLE cellulitis -DM PLAN: -Coumadin per heme with LMWH bridge -F/U hypercoag w/u -Will need at least 3-6 months of A/C -Weight loss, diet and exercise -O/P sleep study -Patient encouraged to ambulate frequently Katy Sands MD, [facility] Pulmonary & Critical Care Medicine Subjective Allergies: Coded Allergies: No Known Allergies (Unverified , 08/31/14) Subjective AFVSS, O2 needs stable Less SOB, no CP, no cough, no wheezing LLE pain better, plain films neg Seen by onc and started on Coumadin Objective Last 24 Hour Vital Signs Date Time Temp Pulse Resp B/P (MAP) Pulse Ox O2 Delivery O2 Flow Rate FiO2 06/17/17 17:15 97.2 06/17/17 16:00 97.6 70 21 135/90 99 2.0 97.6 06/17/17 15:45 97.2 06/17/17 12:00 72 06/17/17 12:00 97.2 67 20 154/89 93 2.0 97.2 06/17/17 08:25 Nasal Cannula 2.0 28 06/17/17 08:24 98 Nasal Cannula 2.0 06/17/17 08:23 76 18 Nasal Cannula 2.0 06/17/17 08:00 97.5 73 21 142/69 97 2.0 97.5 06/17/17 08:00 77 06/17/17 04:00 73 06/17/17 00:00 97.9 72 20 138/95 97 2.0 97.9 06/17/17 00:00 74 06/16/17 21:16 Nasal Cannula 4.0 36 06/16/17 21:15 98 Nasal Cannula 4.0 36 06/16/17 20:00 76 06/16/17 20:00 98.4 72 20 128/66 99 2.0 98.4 06/16/17 20:00 72 18 Room Air 21 Intake and Output 06/16/17 06/17/17 19:00 07:00 Intake Total 450 ml Balance 450 ml Intake Oral 450 ml # Voids 3 1 General Appearance: WD/WN, no acute distress, other - obese HEENT: normocephalic, atraumatic, anicteric, mucous membranes moist Respiratory/Chest: chest wall non-tender, lungs clear - but distant, no respiratory distress, no accessory muscle use Cardiovascular: normal peripheral pulses, normal rate, regular rhythm Abdomen: normal bowel sounds, soft, non tender, no organomegaly, non distended , no mass Extremities: no cyanosis, no clubbing, other - trace BLEE Laboratory Tests 06/16/17 20:05: Lupus Anticoagulant [Pending], Lupus Anticoagulant PTT Baseline [Pending], Lupus Anticoag DRVVT Screen Ratio [Pending], DRVVT Confirmation Interpretation [ Pending], Hexagonal Phase Comment [Pending], Protein C Activity [Pending], Protein S Activity [Pending], Anti-Thrombin III Activity [Pending], Factor V Mutation [Pending], Total Bilirubin 0.3, Direct Bilirubin 0.1, Aspartate Amino Transf (AST/SGOT) 22, Alanine Aminotransferase (ALT/SGPT) 45, Alkaline Phosphatase 87, Troponin I 0.199H, Total Protein 7.0, Albumin 3.2L, CA 15-3 Antigen 7.3, CA 27.29 9.2, CA 125 Antigen 11.3 06/17/17 06:45: Troponin I 0.117H, White Blood Count 6.7, Red Blood Count 4.51, Hemoglobin 12.1 , Hematocrit 37.9, Mean Corpuscular Volume 84, Mean Corpuscular Hemoglobin 26.9L , Mean Corpuscular Hemoglobin Concent 32.0, Red Cell Distribution Width 14.4, Platelet Count 139L, Mean Platelet Volume 10.6H, Neutrophils (%) (Auto) 50.0, Lymphocytes (%) (Auto) 39.2, Monocytes (%) (Auto) 6.4, Eosinophils (%) (Auto) 3.1H, Basophils (%) (Auto) 1.3, Prothrombin Time 10.0, Prothromb Time International Ratio 1.0, Sodium Level 138, Potassium Level 3.8, Chloride Level 102, Carbon Dioxide Level 30, Anion Gap 6, Blood Urea Nitrogen 9, Creatinine 0.9 , Estimat Glomerular Filtration Rate > 60, Glucose Level 140H, Calcium Level 9.4 , Magnesium Level 1.8 Current Medications Medications (Trade) Dose Ordered Sig/Milo Route PRN Reason Start Time Stop Time Status Last Admin Dose Admin Acetaminophen (Tylenol) 650 mg Q4H PRN ORAL Mild Pain (Pain Scale 1-3) 06/16/17 06:00 07/16/17 05:59 Acetaminophen (Tylenol) 650 mg Q4H PRN ORAL fever 06/16/17 06:00 07/16/17 05:59 Acetaminophen/ Hydrocodone Bitart ([place] 10/325) 1 tab Q4H PRN ORAL Severe Pain (Pain Scale 7-10) 06/17/17 11:00 06/24/17 10:59 06/17/17 15:45 Albuterol/ Ipratropium (Albuterol/ Ipratropium) 3 ml Q4H PRN HHN Shortness of Breath 06/16/17 06:00 06/21/17 05:59 Bisacodyl (Dulcolax) 10 mg DAILYPRN PRN RECTAL Constipation 06/16/17 06:00 07/16/17 05:59 Dextrose (Dextrose 50%) 25 ml STAT PRN IV Hypoglycemia 06/16/17 06:00 07/16/17 05:59 Dextrose (Dextrose 50%) 50 ml STAT PRN IV Hypoglycemia 06/16/17 06:00 07/16/17 05:59 Docusate Sodium (Colace) 100 mg EVERY 12 HOURS ORAL 06/16/17 09:00 07/16/17 08:59 06/17/17 08:16 Enoxaparin Sodium (Lovenox) 160 mg Q12HR SUBQ 06/16/17 16:00 07/16/17 15:59 06/17/17 08:39 Insulin Aspart (NovoLOG) BEFORE MEALS AND HS SUBQ 06/16/17 16:30 07/16/17 16:29 06/17/17 17:12 Ondansetron HCl (Zofran) 4 mg Q6H PRN IVP Nausea & Vomiting 06/16/17 06:00 07/16/17 05:59 Pantoprazole (Protonix) 40 mg ACBREAKFAST ORAL 06/16/17 06:30 07/16/17 06:29 06/17/17 06:33 Phenol/Menthol (Chloraseptic) 1 spray Q3H PRN ORAL SORE THROAT 06/16/17 17:50 07/16/17 17:49 06/17/17 06:33 Polyethylene Glycol (Miralax) 17 gm DAILYPRN PRN ORAL Constipation 06/16/17 06:00 07/16/17 05:59 Warfarin Sodium (Coumadin per pharmacy) 1 ea DAILY PRN MISC Per rx protocol 06/16/17 19:45 07/16/17 19:44 Warfarin Sodium (Coumadin) 5 mg COUMADIN ORAL 06/16/17 21:00 06/21/17 20:59 06/17/17 17:14 KATY SANDS M.D. Jun 17, 2017 18:44
--- NOTE | 2017-06-17 18:46 | Cardiac Electrophysiology PN ---
Subjective Subjective [id number] Objective Last 24 Hour Vital Signs Date Time Temp Pulse Resp B/P (MAP) Pulse Ox O2 Delivery O2 Flow Rate FiO2 06/17/17 17:15 97.2 06/17/17 16:00 97.6 70 21 135/90 99 2.0 97.6 06/17/17 15:45 97.2 06/17/17 12:00 72 06/17/17 12:00 97.2 67 20 154/89 93 2.0 97.2 06/17/17 08:25 Nasal Cannula 2.0 28 06/17/17 08:24 98 Nasal Cannula 2.0 06/17/17 08:23 76 18 Nasal Cannula 2.0 06/17/17 08:00 97.5 73 21 142/69 97 2.0 97.5 06/17/17 08:00 77 06/17/17 04:00 73 06/17/17 00:00 97.9 72 20 138/95 97 2.0 97.9 06/17/17 00:00 74 06/16/17 21:16 Nasal Cannula 4.0 36 06/16/17 21:15 98 Nasal Cannula 4.0 36 06/16/17 20:00 76 06/16/17 20:00 98.4 72 20 128/66 99 2.0 98.4 06/16/17 20:00 72 18 Room Air 21 Intake and Output 06/16/17 06/17/17 19:00 07:00 Intake Total 450 ml Balance 450 ml Intake Oral 450 ml # Voids 3 1 Laboratory Tests Test 06/16/17 20:05 06/17/17 06:45 Lupus Anticoagulant Pending Lupus Anticoagulant PTT Baseline Pending Lupus Anticoag DRVVT Screen Ratio Pending DRVVT Confirmation Interpretation Pending Hexagonal Phase Comment Pending Protein C Activity Pending Protein S Activity Pending Anti-Thrombin III Activity Pending Factor V Mutation Pending Total Bilirubin 0.3 MG/DL (0.2-1.0) Direct Bilirubin 0.1 MG/DL (0.0-0.3) Aspartate Amino Transf (AST/SGOT) 22 U/L (15-37) Alanine Aminotransferase (ALT/SGPT) 45 U/L (12-78) Alkaline Phosphatase 87 U/L (46-116) Troponin I 0.199 ng/mL (0.000-0.056) 0.117 ng/mL (0.000-0.056) Total Protein 7.0 G/DL (6.4-8.2) Albumin 3.2 G/DL (3.4-5.0) L CA 15-3 Antigen 7.3 U/mL (0.0-25.0) CA 27.29 9.2 U/mL (0.0-38.6) CA 125 Antigen 11.3 U/mL (0.0-38.1) White Blood Count 6.7 K/UL (4.8-10.8) Red Blood Count 4.51 M/UL (4.20-5.40) Hemoglobin 12.1 G/DL (12.0-16.0) Hematocrit 37.9 % (37.0-47.0) Mean Corpuscular Volume 84 FL (80-99) Mean Corpuscular Hemoglobin 26.9 PG (27.0-31.0) L Mean Corpuscular Hemoglobin Concent 32.0 G/DL (32.0-36.0) Red Cell Distribution Width 14.4 % (11.6-14.8) Platelet Count 139 K/UL (150-450) L Mean Platelet Volume 10.6 FL (6.5-10.1) H Neutrophils (%) (Auto) 50.0 % (45.0-75.0) Lymphocytes (%) (Auto) 39.2 % (20.0-45.0) Monocytes (%) (Auto) 6.4 % (1.0-10.0) Eosinophils (%) (Auto) 3.1 % (0.0-3.0) H Basophils (%) (Auto) 1.3 % (0.0-2.0) Prothrombin Time 10.0 SEC (9.30-11.50) Prothromb Time International Ratio 1.0 (0.9-1.1) Sodium Level 138 MMOL/L (136-145) Potassium Level 3.8 MMOL/L (3.5-5.1) Chloride Level 102 MMOL/L (98-107) Carbon Dioxide Level 30 MMOL/L (21-32) Anion Gap 6 mmol/L (5-15) Blood Urea Nitrogen 9 mg/dL (7-18) Creatinine 0.9 MG/DL (0.55-1.30) Estimat Glomerular Filtration Rate > 60 mL/min (>60) Glucose Level 140 MG/DL (74-106) H Calcium Level 9.4 MG/DL (8.5-10.1) Magnesium Level 1.8 MG/DL (1.8-2.4) Paulino Mcfarland MD Jun 17, 2017 18:46
--- NOTE | 2017-06-17 20:30 | Consultation ---
DATE OF CONSULTATION: 06/17/2017 CARDIOLOGY CONSULTATION CONSULTING PHYSICIAN: Paulino Mcfarland M.D. REFERRING PHYSICIAN: Esme Wu M.D. REASON FOR CONSULTATION: Pulmonary embolism, hypertension. HISTORY OF PRESENT ILLNESS: The patient is a 46-year-old lady with history of hypertension, morbid obesity, left lower extremity cellulitis as well as degenerative joint disease, also history of left lower extremity cellulitis in the past, who presented with acute calf pain of left lower extremity as well as shortness of breath. 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 The patient was noted to have elevated D-dimer with negative duplex, but CT angiogram had pulmonary embolism. Transesophageal echocardiogram showed no evidence of obvious failure, ejection fraction was 55%. REVIEW OF SYSTEMS: Performed and was negative other than what was mentioned in the history of present illness. PAST MEDICAL HISTORY: 1. Hypertension. 2. Morbid obesity. 3. Left lower extremity cellulitis. 4. Degenerative joint disease. ALLERGIES: The patient has no known drug allergies. MEDICATION: Per reconciliation. PHYSICAL EXAMINATION: VITAL SIGNS: Blood pressure /90, pulse is 70, respirations 21, and temperature is 97.2. HEAD AND NECK: Showed no JVD. LUNGS: Clear. CARDIOVASCULAR: Shows regular S1 and S2. No gallop or murmur. ABDOMEN: Soft and morbidly obese. EXTREMITIES: No pitting edema. LABORATORY DATA: Show white count of 6.7, hemoglobin 12.1, hematocrit 38, and platelet count 139,000. Sodium 138, potassium 3.8, BUN of 9, creatinine 0.9, and glucose of 140. Troponin is 0.199 and 0.177. IMAGING: CT angiogram of the chest showed positive for bilateral upper lobe pulmonary emboli. ASSESSMENT AND PLAN: 1. Troponin leak, this is with the patient's acute bilateral pulmonary embolism. The patient has no known prior myocardial infarction. Ejection fraction is normal. Echocardiogram showed no acute ST-T wave abnormality. Treatment should be for underlying pulmonary embolism. 2. Acute bilateral pulmonary embolism. The patient is on Lovenox and Coumadin that will be switched to Eliquis to be going home. 3. Morbid obesity. 4. Cellulitis of left lower extremity in 2012. Thank you very much, Dr. Wu, for allowing me to participate in the care of this patient. Please do not hesitate to contact me for any questions regarding my evaluation. Paulino Mcfarland M.D. DR: Ji JOB#: [id number] CC:
--- NOTE | 2017-06-18 22:14 | General Progress Note ---
Assessment/Plan Assessment/Plan IMPRESSION: 1. Bilateral pulmonary emboli. 2. Possible hypercoagulable state. 3. Left calf pain. 4. Cellulitis left lower extremity. 5. Morbid obesity. 6. Possible obstructive sleep apnea. 7. History of left lower extremity cellulitis. 8. Diabetes mellitus, early stage. 9. Failure to thrive. RECOMMENDATIONS: 1. Watch count. 2. Watch coagulopathy. 3. Coumadin p.o. 4. Lovenox subcutaneously. 5. Hypercoagulable state workup. 6. Weight loss. 7. Diet. 8. Exercise. 9. Skin care. 10. Nutrition. 11. Pulmonary followup. 12. Close followup. 13. Discussed with staff. 14. Continue current treatment. Subjective Date patient seen: Jun 17, 2017 Allergies: Coded Allergies: No Known Allergies (Unverified , 08/31/14) Subjective Patient feeling better. No sob. No fever. Objective Labs Test 06/16/17 01:30 06/16/17 01:50 06/16/17 14:15 06/16/17 15:36 White Blood Count 6.6 K/UL (4.8-10.8) Red Blood Count 4.51 M/UL (4.20-5.40) Hemoglobin 12.1 G/DL (12.0-16.0) Hematocrit 37.4 % (37.0-47.0) Mean Corpuscular Volume 83 FL (80-99) Mean Corpuscular Hemoglobin 26.9 PG (27.0-31.0) Mean Corpuscular Hemoglobin Concent 32.4 G/DL (32.0-36.0) Red Cell Distribution Width 14.2 % (11.6-14.8) Platelet Count 139 K/UL (150-450) Mean Platelet Volume 9.5 FL (6.5-10.1) Neutrophils (%) (Auto) 60.3 % (45.0-75.0) Lymphocytes (%) (Auto) 31.4 % (20.0-45.0) Monocytes (%) (Auto) 5.6 % (1.0-10.0) Eosinophils (%) (Auto) 2.0 % (0.0-3.0) Basophils (%) (Auto) 0.7 % (0.0-2.0) Prothrombin Time 10.1 SEC (9.30-11.50) Prothromb Time International Ratio 1.0 (0.9-1.1) Activated Partial Thromboplast Time 24 SEC (23-33) D-Dimer 6.47 mg/L FEU (0.00-0.49) Sodium Level 140 MMOL/L (136-145) Potassium Level 3.6 MMOL/L (3.5-5.1) Chloride Level 105 MMOL/L (98-107) Carbon Dioxide Level 28 MMOL/L (21-32) Anion Gap 7 mmol/L (5-15) Blood Urea Nitrogen 11 mg/dL (7-18) Creatinine 1.1 MG/DL (0.55-1.30) Estimat Glomerular Filtration Rate > 60 mL/min (>60) Glucose Level 215 MG/DL (74-106) Hemoglobin A1c 7.6 % (4.3-6.0) Calcium Level 9.2 MG/DL (8.5-10.1) Total Bilirubin 0.2 MG/DL (0.2-1.0) Aspartate Amino Transf (AST/SGOT) 34 U/L (15-37) Alanine Aminotransferase (ALT/SGPT) 48 U/L (12-78) Alkaline Phosphatase 93 U/L (46-116) Total Creatine Kinase 172 U/L (26-308) Creatine Kinase MB 0.7 NG/ML (0.0-3.6) Creatine Kinase MB Relative Index 0.4 Troponin I 0.019 ng/mL (0.000-0.056) 0.144 ng/mL (0.000-0.056) Pro-B-Type Natriuretic Peptide 36 pg/mL (0-125) Total Protein 7.3 G/DL (6.4-8.2) Albumin 3.3 G/DL (3.4-5.0) Globulin 4.0 g/dL Albumin/Globulin Ratio 0.8 (1.0-2.7) Triglycerides Level 151 MG/DL (30-150) Cholesterol Level 185 MG/DL (< 200) LDL Cholesterol 118 mg/dL (<100) HDL Cholesterol 53 MG/DL (40-60) Cholesterol/HDL Ratio 3.5 (3.3-4.4) Thyroid Stimulating Hormone (TSH) 1.136 uiU/mL (0.358-3.740) HIV (1&2) Antibody Rapid Negative (NEGATIVE) Urine Color Pale yellow Urine Appearance Clear Urine pH 6 (4.5-8.0) Urine Specific [place] 1.015 (1.005-1.035) Urine Protein Negative (NEGATIVE) Urine Glucose (UA) Negative (NEGATIVE) Urine Ketones Negative (NEGATIVE) Urine Occult Blood Negative (NEGATIVE) Urine Nitrite Negative (NEGATIVE) Urine Bilirubin Negative (NEGATIVE) Urine Urobilinogen Normal MG/DL (0.0-1.0) Urine Leukocyte Esterase Negative (NEGATIVE) Urine HCG, Qualitative Negative (NEGATIVE) Arterial Blood pH 7.400 (7.350-7.450) Arterial Blood Partial Pressure CO2 42.7 mmHg (35.0-45.0) Arterial Blood Partial Pressure O2 95.8 mmHg (75.0-100.0) Arterial Blood HCO3 26.1 mmol/L (22.0-26.0) Arterial Blood Oxygen Saturation 96.6 % (92.0-98.0) Arterial Blood Base Excess 1.2 Mihai Test Positive Test 06/16/17 20:05 06/17/17 06:45 Protein C Activity 147 % (73-180) Protein S Activity 122 % (63-140) Anti-Thrombin III Activity 108 % (75-135) Total Bilirubin 0.3 MG/DL (0.2-1.0) Direct Bilirubin 0.1 MG/DL (0.0-0.3) Aspartate Amino Transf (AST/SGOT) 22 U/L (15-37) Alanine Aminotransferase (ALT/SGPT) 45 U/L (12-78) Alkaline Phosphatase 87 U/L (46-116) Troponin I 0.199 ng/mL (0.000-0.056) 0.117 ng/mL (0.000-0.056) Total Protein 7.0 G/DL (6.4-8.2) Albumin 3.2 G/DL (3.4-5.0) CA 15-3 Antigen 7.3 U/mL (0.0-25.0) CA 27.29 9.2 U/mL (0.0-38.6) CA 125 Antigen 11.3 U/mL (0.0-38.1) White Blood Count 6.7 K/UL (4.8-10.8) Red Blood Count 4.51 M/UL (4.20-5.40) Hemoglobin 12.1 G/DL (12.0-16.0) Hematocrit 37.9 % (37.0-47.0) Mean Corpuscular Volume 84 FL (80-99) Mean Corpuscular Hemoglobin 26.9 PG (27.0-31.0) Mean Corpuscular Hemoglobin Concent 32.0 G/DL (32.0-36.0) Red Cell Distribution Width 14.4 % (11.6-14.8) Platelet Count 139 K/UL (150-450) Mean Platelet Volume 10.6 FL (6.5-10.1) Neutrophils (%) (Auto) 50.0 % (45.0-75.0) Lymphocytes (%) (Auto) 39.2 % (20.0-45.0) Monocytes (%) (Auto) 6.4 % (1.0-10.0) Eosinophils (%) (Auto) 3.1 % (0.0-3.0) Basophils (%) (Auto) 1.3 % (0.0-2.0) Prothrombin Time 10.0 SEC (9.30-11.50) Prothromb Time International Ratio 1.0 (0.9-1.1) Sodium Level 138 MMOL/L (136-145) Potassium Level 3.8 MMOL/L (3.5-5.1) Chloride Level 102 MMOL/L (98-107) Carbon Dioxide Level 30 MMOL/L (21-32) Anion Gap 6 mmol/L (5-15) Blood Urea Nitrogen 9 mg/dL (7-18) Creatinine 0.9 MG/DL (0.55-1.30) Estimat Glomerular Filtration Rate > 60 mL/min (>60) Glucose Level 140 MG/DL (74-106) Calcium Level 9.4 MG/DL (8.5-10.1) Magnesium Level 1.8 MG/DL (1.8-2.4) Intake and Output 06/17/17 06/18/17 19:00 07:00 Intake Total 500 ml Balance 500 ml Intake Oral 500 ml # Voids 3 Height (Feet): 5 Height (Inches): 3.00 Weight (Pounds): 346 General Appearance: no apparent distress Cardiovascular: normal rate, regular rhythm Respiratory/Chest: lungs clear, normal breath sounds Abdomen: normal bowel sounds, non tender Kameron Green MD Jun 18, 2017 22:14
--- NOTE | 2017-06-19 08:18 | Discharge Summary ---
Discharge Summary Discharge Summary Discharge Summary DATE OF ADMISSION: 06/16/2017 DATE OF DISCHARGE: 06/17/2017 REASON FOR ADMISSION: 46 years old female without past medical history, morbidly obese, presented to emergency department with acute onset of shortness of breath. Patient reported walking up the stairs when she developed acute shortness of breath. Denied cough, congestion, denied chest pain,but complained of the left calf pain. Pain was 8 out of 10 on a scale 1-10. Patient with history of smoking , quit 5 years ago. Patient with history of cellulitis left lower extremity. No family history of blood clots. No history of recent surgery. Not on control pills. 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 Laboratory workup revealed elevated D- dimer. Venous duplex bilateral lower extremity was negative. CTA of the chest revealed bilateral pulmonary emboli. Patient was started on Lovenox. Patient was admitted to telemetry floor for further management with diagnosis of acute bilateral pulmonary emboli. CONSULTANTS: upholstery restorer Dr. Mcfarland pulmonary Dr. Sands tactical air control party/oncologist Dr. Green [facility] COURSE: Patient admitted to telemetry floor. Cardiology hematology and pulmonology evaluations were requested. X-ray of the left tibia-fibula, left knee, left foot, and left ankle revealed no evidence of acute findings. Patient was on Lovenox and Coumadin. GI prophylaxis provided. Noted mild elevation in troponin . Continuous Towel Roller closely followed. Serial troponin were monitored along with EKG. According to upholstery restorer elevated troponin was likely troponin leak secondary to acute bilateral PE. Patient did not complain of chest pain and had no cardiac symptoms. EKG revealed no acute ischemic changes. Echocardiogram revealed preserved ejection fraction of 55%, mild left ventricular hypertrophy, no evidence of pericardial effusion, right ventricular systolic pressure of 29. Per upholstery restorer patient needs to be treated for acute pulmonary emboli. Claims Adjudicator closely followed. Supplemental oxygen provided as needed to keep pulse oximetry above 92%. Pulmonary toilet was on standby as needed. Patient will need at least 3-6 months of anticoagulation. Claims Adjudicator and tactical air control party both recommended to consider outpatient hypercoagulability workup. Restaurant Attendant closely followed. Cancer tumor markers were all negative. Lipid panel revealed elevated LDL of 118, and patient was started on statin. Hemoglobin A1c -7.6. Patient with newly diagnosed diabetes. While in the hospital, patient was on insulin. Patient was discharged home on metformin with recommendation to follow-up closely with primary care provider for diabetes ma management. Patient was provided with diabetic teaching and dietary teaching on diabetic diet. Patient was counseled on exercise and weight loss. According to storage battery tester, patient likely had obstructive sleep apnea . Claims Adjudicator recommended sleep study as outpatient. Upon discharge, patient was switched to novelty anticoagulation with Eliquis. Prescription provided. Due to rapid and expected improvement patient condition, patient was discharged in one day. FINAL DIAGNOSES: Acute bilateral pulmonary emboli Elevated troponin due to troponin leak ,secondary to acute bilateral pulmonary emboli Diabetes mellitus (newly diagnosed with hemoglobin A1c 7.6) Morbid obesity with BMI 61.3 Likely obstructive sleep apnea DISCHARGE MEDICATIONS: See Medication Reconciliation list. DISCHARGE INSTRUCTIONS: Patient was discharged home. Follow up with primary care provider in one week. Stressed importance of compliance with anticoagulation therapy. Boiler House Supervisor on weight loss and exercise, and increased ambulation I have been assigned to dictate discharge summary for this account. I was not involved in the patient's management. Linsey Rubio NP ([place]) Jun 19, 2017 08:18
--- NOTE | 2017-06-19 17:50 | Cardiology Report ---
APPROVED REPORT EKG Measurement Heart [id number] [place] [id number] [id number] Normal sinus rhythm with sinus arrhythmia Nonspecific T wave abnormality Abnormal ECG
--- NOTE | 2017-06-19 17:52 | Cardiology Report ---
APPROVED REPORT EKG Measurement Heart [id number] [place] [id number] Sinus rhythm Septal infarct, age undetermined Abnormal ECG
--- NOTE | 2017-06-20 10:50 | Cardiology Report ---
APPROVED REPORT EXAM: Two-dimensional and M-mode echocardiogram with Doppler and color Doppler. INDICATION Shortness of breath M-Mode DIMENSIONS IVSd1.2 (0.7-1.1cm)Left Atrium (MM)4.0 (1.6-4.0cm) LVDd4.4 (3.5-5.6cm)Aortic Root3.0 (2.0-3.7cm) PWd1.0 (0.7-1.1cm)Aortic Cusp Exc.2.0 (1.5-2.0cm) LVDs2.5 (2.5-4.0cm) PWs1.3 cm Normal left ventricular chamber size, systolic function and wall motion. Left ventricular ejection fraction estimated to be 55 %. Mild lleft ventricular hypertrophy. No evidence of pericardial effusion. Left atrial size at upper limits of normal. Right cardiac chamber sizes are within normal limits. Focal aortic valve sclerosis with adequate cusp excursion. Mildly thickened mitral valve leaflets with normal excursion. Mild mitral annulus and aortic root calcification. Pulmonic valve not well visualized. Normal tricuspid valve structure. Subcostal views not obtainable. A color flow and spectral Doppler study was performed and revealed: No aortic insufficiency. Trace mitral regurgitation. reduced left ventricular relaxation c/w impaired relaxation diastolic dysfunction. Trace tricuspid regurgitation. Tricuspid systolic velocities suggests peak right ventricular systolic pressure of 29 mmHg. No pulmonic regurgitation present.
== END 2017-06-17 20:25 | disposition home or self-care (01) | DRG 134 ==
LOC: EMR 01:10 → 2E 04:21 → EDBEDREQ 06:12
DX: I26.99 Other pulmonary embolism without acute cor pulmonale (principal); Z68.44 Body mass index [BMI] 60.0-69.9, adult; I10 Essential (primary) hypertension; E11.9 Type 2 diabetes mellitus without complications; E66.01 Morbid (severe) obesity due to excess calories; G47.33 Obstructive sleep apnea (adult) (pediatric); Z87.891 Personal history of nicotine dependence
CPT/HCPCS: 36415; 36600; 71045; 71275; 80048; 80053; 80061; 80076; 81003; 81025; 81241; 82378; 82550; 82553; 82803; 82962; 83036; 83735; 83880; 84443; 84484; 85025; 85300; 85303; 85306; 85379; 85610; 85613; 85730; 86300; 86301; 86304; 86703; 93005; 93306; 93970; 94640; 94664; 94760; 99285; J1815

== ENCOUNTER 2017-09-20 16:07 | Emergency (ER) | payer OTHER ==
[~2017-09-20] VITALS: Ht 160 cm; Wt 152.0 kg
[~2017-09-20 16:07] MED LIST changes: +ATORVASTATIN CA40 MG ORAL; +ELIQUIS5 MG PO; +METFORMIN HCL500 M1 ORAL
[2017-09-20 17:10] LABS: BASOPHILS % (AUTO) 0.7 % (0.0-2.0); EOSINOPHILS % (AUTO) 1.7 % (0.0-3.0); HEMATOCRIT 37.5 % (37.0-47.0); LYMPHOCYTES % (AUTO) 39.3 % (20.0-45.0); MEAN CORPUSCULAR VOLUME 82 FL (80-99); MONOCYTES % (AUTO) 8.2 % (1.0-10.0); NEUTROPHILS % (AUTO) 50.2 % (45.0-75.0); PLATELET COUNT 137 K/UL (150-450); RED BLOOD COUNT 4.59 M/UL (4.20-5.40); RED CELL DISTRIBUTION WIDTH 14.1 % (11.6-14.8); WHITE BLOOD COUNT 6.9 K/UL (4.8-10.8)
[2017-09-20 17:26] LABS: ANION GAP 7 mmol/L (5-15); BLOOD UREA NITROGEN 11 mg/dL (7-18); CALCIUM 9.3 MG/DL (8.5-10.1); CARBON DIOXIDE 31 MMOL/L (21-32); CHLORIDE 103 MMOL/L (98-107); POTASSIUM 3.7 MMOL/L (3.5-5.1); SODIUM 141 MMOL/L (136-145)
[2017-09-20 17:42] LABS: ALANINE AMINOTRANSFERASE 31 U/L (12-78); ALBUMIN 3.3 G/DL (3.4-5.0); ALBUMIN/GLOBULIN RATIO 0.8 (1.0-2.7); ALKALINE PHOSPHATASE 73 U/L (46-116); ASPARTATE AMINO TRANSFERASE 12 U/L (15-37); BILIRUBIN,TOTAL 0.3 MG/DL (0.2-1.0); CKMB 0.5 NG/ML (0.0-3.6); CREATINE KINASE 167 U/L (26-308)
--- NOTE | 2017-09-20 17:42 | Diagnostic Imaging Report ---
Indication: Reason For Exam: SOB Technique: Portable frontal view of the chest Comparison: 06/16/2017 Findings: Limited exam due to low lung volumes and underpenetration secondary to large body habitus. Stable borderline cardiomegaly. Question mild haziness of the pulmonary vascularity, possibly exaggerated due to low lung volumes. No definite focal consolidation. Costophrenic sulci are sharp. No appreciable pneumothorax. There are degenerative changes of the spine. No acute osseous abnormality. IMPRESSION: Cardiomegaly with slight haziness of the pulmonary vascularity, likely artifactually exaggerated due to low lung volumes. Correlate clinically to exclude the possibility of mild vascular congestion/CHF.
[2017-09-20] MEDS ORDERED: CEPHALEXIN500 MG ORAL (18:21)
--- NOTE | 2017-09-20 18:28 | Emergency Room Report ---
History of Present Illness General Chief Complaint: Dyspnea/Respdistress Source: Patient Present Illness HPI Patient present with complaints of red area along the medial aspect of the left ankle this came on over the past night and this morning Patient has increased discomfort with palpation And also ambulation Patient at triage had reported sensation of shortness of breath as well On further discussion patient reports that it is the same sensation from before May When the patient was diagnosed with pulmonary embolism patient recently Flew in from [facility] yesterday Denies any chest pain currently denies any change in her shortness of breath Denies any vomiting or diarrhea Denies any fevers she has some questionable chills yesterday Allergies: Coded Allergies: No Known Allergies (Unverified , 08/31/14) Patient History Past Medical History: see triage record Pertinent Family History: none Last Menstrual Period: 2014 Reviewed Nursing Documentation: PMH: Agreed; PSxH: Agreed Nursing Documentation-PMH Hx Cardiac Problems: Yes - 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, High Cholesterol Hx Hypertension: No Hx Asthma: No Hx Diabetes: Yes - CELLULITIS on Lt lower leg in 2012, DM II Hx Spinal Cord Injury: Yes - Bulging disc s/p fall 2009 Review of Systems All Other Systems: negative except mentioned in HPI Physical Exam Vital Signs Date Time Temp Pulse Resp B/P (MAP) Pulse Ox O2 Delivery O2 Flow Rate FiO2 09/20/17 16:12 98.0 89 22 155/91 96 Room Air 98.1 Sp02 EP Interpretation: reviewed, normal General Appearance: no apparent distress Head: normocephalic, atraumatic Eyes: bilateral eye PERRL, bilateral eye EOMI ENT: hearing grossly normal, normal pharynx Neck: full range of motion, supple Respiratory: chest non-tender, lungs clear Cardiovascular #1: regular rate, rhythm, no edema Gastrointestinal: normal bowel sounds, non tender Genitourinary: no CVA tenderness Musculoskeletal: other - Some erythema is noted to the medial aspect of the left ankle approximately 2 x 3 cm, pulses are intact dorsally no trauma is noted ,. Neurologic: alert, oriented x3 Skin: other - As above Lymphatic: no adenopathy Medical Decision Making Diagnostic Impression: Primary Impression: Cellulitis of left lower extremity ER Course Given the patient's history given the patient's recent diagnoses Differentials such as pulmonary embolism, DVT, cellulitis are all entertained Patient is on Eliquis for her pulmonary emboli At this time remains hemodynamically stable on the cardiac monitoring Oxygen remains at 98% on room air Ultrasound was obtained to evaluate the left lower extremity Negative for DVT Patient's blood work is also at baseline levels Repeat imaging was not obtained given the patient's underlying diagnosis At this time patient reports that she has had 3 separate episodes of infection in that same area Raising question of underlying pathology Patient reports that she recently missed her doctor's appointment and has follow -up She will be placed on antibiotics and follow up closely Labs Test 09/20/17 16:51 09/20/17 16:57 White Blood Count 6.9 K/UL (4.8-10.8) Red Blood Count 4.59 M/UL (4.20-5.40) Hemoglobin 12.0 G/DL (12.0-16.0) Hematocrit 37.5 % (37.0-47.0) Mean Corpuscular Volume 82 FL (80-99) Mean Corpuscular Hemoglobin 26.2 PG (27.0-31.0) Mean Corpuscular Hemoglobin Concent 32.0 G/DL (32.0-36.0) Red Cell Distribution Width 14.1 % (11.6-14.8) Platelet Count 137 K/UL (150-450) Mean Platelet Volume 10.0 FL (6.5-10.1) Neutrophils (%) (Auto) 50.2 % (45.0-75.0) Lymphocytes (%) (Auto) 39.3 % (20.0-45.0) Monocytes (%) (Auto) 8.2 % (1.0-10.0) Eosinophils (%) (Auto) 1.7 % (0.0-3.0) Basophils (%) (Auto) 0.7 % (0.0-2.0) Prothrombin Time 10.4 SEC (9.30-11.50) Prothromb Time International Ratio 1.0 (0.9-1.1) Activated Partial Thromboplast Time 26 SEC (23-33) Sodium Level 141 MMOL/L (136-145) Potassium Level 3.7 MMOL/L (3.5-5.1) Chloride Level 103 MMOL/L (98-107) Carbon Dioxide Level 31 MMOL/L (21-32) Anion Gap 7 mmol/L (5-15) Blood Urea Nitrogen 11 mg/dL (7-18) Creatinine 1.0 MG/DL (0.55-1.30) Estimat Glomerular Filtration Rate > 60 mL/min (>60) Glucose Level 219 MG/DL (74-106) Calcium Level 9.3 MG/DL (8.5-10.1) Total Bilirubin 0.3 MG/DL (0.2-1.0) Aspartate Amino Transf (AST/SGOT) 12 U/L (15-37) Alanine Aminotransferase (ALT/SGPT) 31 U/L (12-78) Alkaline Phosphatase 73 U/L (46-116) Total Creatine Kinase 167 U/L (26-308) Creatine Kinase MB 0.5 NG/ML (0.0-3.6) Creatine Kinase MB Relative Index 0.2 Troponin I 0.000 ng/mL (0.000-0.056) Pro-B-Type Natriuretic Peptide 50 pg/mL (0-125) Total Protein 7.6 G/DL (6.4-8.2) Albumin 3.3 G/DL (3.4-5.0) Globulin 4.3 g/dL Albumin/Globulin Ratio 0.8 (1.0-2.7) Lipase 117 U/L (73-393) Urine Opiates Screen Negative (NEGATIVE) Urine Barbiturates Screen Negative (NEGATIVE) Phencyclidine (PCP) Screen Negative (NEGATIVE) Urine Amphetamines Screen Negative (NEGATIVE) Urine Benzodiazepines Screen Negative (NEGATIVE) Urine Cocaine Screen Negative (NEGATIVE) Urine Marijuana (THC) Screen Negative (NEGATIVE) EKG Diagnostic Results Rate: normal Rhythm: NSR ST Segments: no acute changes Rhythm Strip Diag. Results EP Interpretation: yes Rate: 69 Rhythm: NSR, no PVC's, no ectopy Chest X-Ray Diagnostic Results Chest X-Ray Diagnostic Results : Chest X-Ray Ordered: Yes # of Views/Limited/Complete: 1 View Indication: Chest Pain EP Interpretation: Yes Interpretation: no consolidation, no effusion, no pneumothorax Impression: No acute disease Electronically Signed by: Niesha Cruz DO CT/MRI/US Diagnostic Results CT/MRI/US Diagnostic Results : Impression venous ultrasound left lower extremity: negative for DVT Last Vital Signs Date Time Temp Pulse Resp B/P (MAP) Pulse Ox O2 Delivery O2 Flow Rate FiO2 09/20/17 18:21 77 96 Room Air 09/20/17 17:00 22 7/31/18 16:12 98.0 155/91 98.1 Status: improved Disposition: HOME, SELF-CARE Condition: Improved Scripts Cephalexin* (KEFLEX*) 500 Mg Capsule 500 MG ORAL EVERY 6 HOURS for 7 Days, CAP Prov: Niesha Cruz DO 09/20/17 Referrals: NON PHYSICIAN (PCP) Patient Instructions: Vasculitis, Cellulitis, [id number] Additional Instructions: Patient is provided with the discharge instructions notified to follow up with primary doctor in the next 2-3 days otherwise return to the er with any worsening symptoms. Please note that this report is being documented using [email or web address] technology. This can lead to erroneous entry secondary to incorrect interpretation by the dictating instrument. Niesha Cruz DO Sep 20, 2017 18:28
[2017-09-20 18:29] VITALS: BP 155/91
--- NOTE | 2017-09-21 14:56 | Cardiology Report ---
APPROVED REPORT EKG Measurement Heart [id number] [place] [id number] Normal sinus rhythm Nonspecific T wave abnormality Abnormal ECG
--- NOTE | 2017-09-24 14:14 | Diagnostic Imaging Report ---
APPROVED REPORT CPT Code: 21873 Present Symptoms Comments: LEFT LEG PAIN. LEFT LEG:Venous imaging reveals a patent deep venous system. There is no evidence of thrombus within the femoral, popliteal or tibial segments. The greater saphenous vein is also within normal limits. Doppler indicates normal spontaneous flow within these segments.
== END 2017-09-20 18:40 | disposition home or self-care (01) ==
LOC: EMR 16:28
DX: L03.116 Cellulitis of left lower limb (principal); E11.9 Type 2 diabetes mellitus without complications; E78.00 Pure hypercholesterolemia, unspecified; Z86.718 Personal history of other venous thrombosis and embolism
CPT/HCPCS: 36415; 71045; 80053; 80307; 82550; 82553; 83690; 83880; 84484; 85025; 85610; 85730; 93005; 93971; 99284

== ENCOUNTER 2017-11-27 20:05 | Emergency (ER) | payer OTHER ==
[~2017-11-27] VITALS: Ht 160 cm; Wt 136.1 kg
[~2017-11-27 20:05] MED LIST changes: +CEPHALEXIN500 MG ORAL
[2017-11-27 20:15] VITALS: BP 139/81
[2017-11-27] MEDS ORDERED: Morphine Sulfate 4mg/ml Inj (IV USE ONLY) IVP ONE (21:00)
--- NOTE | 2017-11-27 21:05 | Emergency Room Report ---
History of Present Illness General Chief Complaint: Chest Pain Source: Patient Present Illness HPI Patient presents after a fall 3 days ago. She landed on her left knee. The knee has been tender and swollen. She's also had intermittent chest pain this been sharp and fleeting for those 3 days. It's been intermittent and not related to exertion. She's taken tramadol for the pain with some help. She's on Eliquis for pulmonary emboli. She has chronic postnasal drip and is had a cough that's been mild with that. Not coughing any blood. She has not heard herself wheeze she's never used inhalers before. She complains of constipation and she feels this might be related to her diet or taking tramadol. She took some aspirin for the chest pain and it helped slightly. She also hit her L elbow when she fell. No LOC. No head trauma. No dysuria. No discharge. Last menstrual period was 3 years ago. Family history of early menopause. Diabetic on oral medication. She has had cellulitis of her leg. No skin pain or rashes. No fevers or chills. 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, High Cholesterol Hx Hypertension: No Hx Asthma: No Hx Diabetes: Yes - CELLULITIS on Lt lower leg in 2012, DM II Hx Spinal Cord Injury: Yes - Bulging disc s/p fall 2009 Review of Systems All Other Systems: negative except mentioned in HPI Physical Exam Vital Signs Date Time Temp Pulse Resp B/P (MAP) Pulse Ox O2 Delivery O2 Flow Rate FiO2 11/27/17 20:08 98.0 71 24 165/84 95 Room Air 98.1 Sp02 EP Interpretation: reviewed, normal General Appearance: well appearing, no apparent distress, GCS 15 Head: normocephalic, atraumatic Eyes: bilateral eye normal inspection, bilateral eye PERRL, bilateral eye EOMI ENT: moist mucus membranes Neck: supple Respiratory: chest non-tender, lungs clear, normal breath sounds Cardiovascular #1: regular rate, rhythm Cardiovascular #2: 2+ radial (R) Gastrointestinal: normal inspection, normal bowel sounds, non tender, no mass, non-distended, overweight Musculoskeletal: back normal, no calf tenderness, Tabitha's Sign negative, swelling - tenderness L knee, ligaments stable, tender - R elbow to palpation, ROM full. No shoudler or wrist pain. No swelling or ecchymoses Neurologic: alert, oriented x3, grossly normal Psychiatric: mood/affect normal Skin: normal inspection, warm/dry, other - hirsuitism Medical Decision Making Diagnostic Impression: Primary Impression: Knee contusion Qualified Codes: S80.02XA - Contusion of left knee, initial encounter Additional Impressions: Chest pain Qualified Codes: R07.9 - Chest pain, unspecified UTI (urinary tract infection) Qualified Codes: N30.00 - Acute cystitis without hematuria Contusion of right elbow Qualified Codes: S50.01XA - Contusion of right elbow, initial encounter DM2 (diabetes mellitus, type 2) Qualified Codes: E11.9 - Type 2 diabetes mellitus without complications Constipation Qualified Codes: K59.03 - Drug induced constipation ER Course Patient presents post fall with knee pain and intermittent chest pain. Differential includes acute myocardial infarction, contusion, pulmonary embolus , muscle strain, bleeding into the knee amongst others. She's on Eliquis which makes pulmonary embolus less likely along with her vital signs with no tachycardia, tachypnea or hypoxia. [place] knee rules suggest no fx, but patient on anticoagulation. Evaluation will be with EKG, chest x-ray, knee film and labs. The patient will be treated with analgesia. EKG normal. CXR clear. L knee with DJD. Labs with normal CBC, CMP (slight elevation of glucose). Jaime applied by me with good tension and normal neurovasc as checked by me ( improved). No medical emergency. Pain improved. Patient stable for outpatient observation and treatment. Laboratory Tests Test 11/27/17 20:13 11/27/17 20:45 Urine Color Pale yellow Urine Appearance Clear Urine pH 6.5 (4.5-8.0) Urine Specific Jal 1.015 (1.005-1.035) Urine Protein 1+ (NEGATIVE) H Urine Glucose (UA) Negative (NEGATIVE) Urine Ketones Negative (NEGATIVE) Urine Blood Negative (NEGATIVE) Urine Nitrite Negative (NEGATIVE) Urine Bilirubin Negative (NEGATIVE) Urine Urobilinogen Normal MG/DL (0.0-1.0) Urine Leukocyte Esterase 1+ (NEGATIVE) H Urine RBC 0-2 /HPF (0 - 2) Urine WBC 5-10 /HPF (0 - 2) H Urine Squamous Epithelial Cells Few /LPF (NONE/OCC) Urine Bacteria Few /HPF (NONE) Urine HCG, Qualitative Negative (NEGATIVE) White Blood Count 8.2 K/UL (4.8-10.8) Red Blood Count 4.59 M/UL (4.20-5.40) Hemoglobin 12.1 G/DL (12.0-16.0) Hematocrit 38.2 % (37.0-47.0) Mean Corpuscular Volume 83 FL (80-99) Mean Corpuscular Hemoglobin 26.3 PG (27.0-31.0) L Mean Corpuscular Hemoglobin Concent 31.7 G/DL (32.0-36.0) L Red Cell Distribution Width 13.6 % (11.6-14.8) Platelet Count 177 K/UL (150-450) Mean Platelet Volume 10.5 FL (6.5-10.1) H Neutrophils (%) (Auto) 48.9 % (45.0-75.0) Lymphocytes (%) (Auto) 41.7 % (20.0-45.0) Monocytes (%) (Auto) 6.1 % (1.0-10.0) Eosinophils (%) (Auto) 2.4 % (0.0-3.0) Basophils (%) (Auto) 0.9 % (0.0-2.0) Prothrombin Time 10.3 SEC (9.30-11.50) Prothrombin Time INR 1.0 (0.9-1.1) PTT 26 SEC (23-33) Sodium Level 142 MMOL/L (136-145) Potassium Level 3.8 MMOL/L (3.5-5.1) Chloride Level 105 MMOL/L (98-107) Carbon Dioxide Level 29 MMOL/L (21-32) Anion Gap 8 mmol/L (5-15) Blood Urea Nitrogen 18 mg/dL (7-18) Creatinine 1.0 MG/DL (0.55-1.30) Estimate Glomerular Filtration Rate > 60 mL/min (>60) Glucose Level 146 MG/DL (74-106) H Calcium Level 9.7 MG/DL (8.5-10.1) Total Bilirubin 0.3 MG/DL (0.2-1.0) Aspartate Amino Transferase (AST) 16 U/L (15-37) Alanine Aminotransferase (ALT) 29 U/L (12-78) Alkaline Phosphatase 110 U/L (46-116) Total Creatine Kinase 146 U/L (26-308) Troponin I 0.011 ng/mL (0.000-0.056) Pro-B-Type Natriuretic Peptide 39 pg/mL (0-125) Total Protein 7.5 G/DL (6.4-8.2) Albumin 3.4 G/DL (3.4-5.0) Globulin 4.1 g/dL Albumin/Globulin Ratio 0.8 (1.0-2.7) L EKG Diagnostic Results Rate: normal Rhythm: NSR ST Segments: no acute changes Rhythm Strip Diag. Results EP Interpretation: yes Rhythm: NSR, no PVC's, no ectopy Chest X-Ray Diagnostic Results Chest X-Ray Diagnostic Results : Chest X-Ray Ordered: Yes # of Views/Limited/Complete: 1 View Indication: Chest Pain EP Interpretation: Yes Interpretation: no consolidation, no effusion, no pneumothorax Impression: No acute disease Electronically Signed by: Electronically signed by Sebastien Galvan MD Other X-Ray Diagnostic Results Other X-Ray Diagnostic Results : X-Ray ordered: L knee # of Views/Limited Vs Complete: 3 View Indication: Pain Interpretation: no dislocation, no soft tissue swelling, no fractures, other - DJD Impression: Other Electronically Signed by: Electronically signed by Sebastien Galvan MD Last Vital Signs Date Time Temp Pulse Resp B/P (MAP) Pulse Ox O2 Delivery O2 Flow Rate FiO2 11/27/17 22:02 97.8 76 19 138/64 95 Room Air 97.8 Status: improved Disposition: HOME, SELF-CARE Condition: Improved Scripts Lactulose (LACTULOSE*) 20 Gm/30 Ml Solution 30 ML ORAL BID, #240 ML 1 Refill Prov: Sebastien Galvan M.D. 11/27/17 Tramadol Hcl* (ULTRAM*) 50 Mg Tablet 50 MG ORAL Q6H PRN for For Pain, #16 TAB 0 Refills Prov: Sebastien Galvan M.D. 11/27/17 Nitrofurantoin Monohyd/M-Cryst* (MACROBID 100 MG*) 100 Mg Capsule 100 MG ORAL EVERY 12 HOURS, #14 CAP Prov: Sebastien Galvan M.D. 11/27/17 Referrals: OTHER,REFERRING (PCP) Sebastien Galvan M.D. Nov 27, 2017 21:05
[2017-11-27 21:06] LABS: BASOPHILS % (AUTO) 0.9 % (0.0-2.0); EOSINOPHILS % (AUTO) 2.4 % (0.0-3.0); HEMATOCRIT 38.2 % (37.0-47.0); HEMOGLOBIN 12.1 G/DL (12.0-16.0); LYMPHOCYTES % (AUTO) 41.7 % (20.0-45.0); MEAN CORPUSCULAR VOLUME 83 FL (80-99); MONOCYTES % (AUTO) 6.1 % (1.0-10.0); NEUTROPHILS % (AUTO) 48.9 % (45.0-75.0); PLATELET COUNT 177 K/UL (150-450); RED BLOOD COUNT 4.59 M/UL (4.20-5.40); RED CELL DISTRIBUTION WIDTH 13.6 % (11.6-14.8); WHITE BLOOD COUNT 8.2 K/UL (4.8-10.8)
[2017-11-27 21:09] LABS: APPEARANCE,URINE CLEAR; BILIRUBIN, URINE NEGATIVE (NEGATIVE); COLOR,URINE PALE YELLOW; GLUCOSE, URINE (UA) NEGATIVE (NEGATIVE); KETONES,URINE NEGATIVE (NEGATIVE); LEUKOCYTE ESTERASE ,URINE 1+ (NEGATIVE); NITRITE,URINE NEGATIVE (NEGATIVE); PH,URINE 6.5 (4.5-8.0); PROTEIN,URINE 1+ (NEGATIVE); UROBILINOGEN,URINE NORMAL MG/DL (0.0-1.0)
[2017-11-27 21:13] LABS: ANION GAP 8 mmol/L (5-15); BLOOD UREA NITROGEN 18 mg/dL (7-18); CALCIUM 9.7 MG/DL (8.5-10.1); CARBON DIOXIDE 29 MMOL/L (21-32); CHLORIDE 105 MMOL/L (98-107); POTASSIUM 3.8 MMOL/L (3.5-5.1); SODIUM 142 MMOL/L (136-145)
[2017-11-27 21:21] VITALS: BP 128/84
[2017-11-27 21:23] LABS: ALANINE AMINOTRANSFERASE 29 U/L (12-78); ALBUMIN 3.4 G/DL (3.4-5.0); ALBUMIN/GLOBULIN RATIO 0.8 (1.0-2.7); ALKALINE PHOSPHATASE 110 U/L (46-116); ASPARTATE AMINO TRANSFERASE 16 U/L (15-37); BILIRUBIN,TOTAL 0.3 MG/DL (0.2-1.0); CREATINE KINASE 146 U/L (26-308)
[2017-11-27] MEDS ORDERED: LACTULOSE20 GM/301 ORAL (21:56)
[2017-11-27] MEDS ORDERED: NITROFURANTOIN100 M2 ORAL (21:56)
[2017-11-27] MEDS ORDERED: TRAMADOL HCL50 MG ORAL (21:56)
[2017-11-27 22:02] VITALS: BP 138/64
--- NOTE | 2017-11-28 10:00 | Diagnostic Imaging Report ---
Indication: Knee Pain 3 views of the left knee were obtained. Findings: No acute fracture, malalignment, or joint effusion are identified. There is moderate joint space narrowing with marginal osteophyte formation and subchondral sclerosis. Impression: Negative for acute injury. Moderate arthrosis
--- NOTE | 2017-11-28 10:16 | Diagnostic Imaging Report ---
Indication: Chest pain. Trauma Comparison: 09/20/2017 A single view chest radiograph was obtained. Findings: Cardiomediastinal appearance is within normal limits for age. The lungs are clear. Pulmonary vascularity is appropriate. The diaphragmatic contour is smooth and costophrenic angles are sharp. No pleural effusions are identified. The bones are unremarkable. Impression: No acute findings
--- NOTE | 2017-11-28 14:43 | Cardiology Report ---
APPROVED REPORT EKG Measurement Heart [id number] [place] [id number] [id number] Normal sinus rhythm Possible Left atrial enlargement Nonspecific T wave abnormality Abnormal ECG
== END 2017-11-27 22:42 | disposition home or self-care (01) ==
LOC: EMR 20:40
DX: S80.02XA Contusion of left knee, initial encounter (principal); S50.01XA Contusion of right elbow, initial encounter; N39.0 Urinary tract infection, site not specified; R07.9 Chest pain, unspecified; K59.03 Drug induced constipation; E11.9 Type 2 diabetes mellitus without complications; W18.30XA Fall on same level, unspecified, initial encounter; Y93.9 Activity, unspecified; Y92.9 Unspecified place or not applicable; Y99.9 Unspecified external cause status
CPT/HCPCS: 36415; 71045; 73562; 80053; 81003; 81025; 82550; 83880; 84484; 85025; 85610; 85730; 93005; 96374; 96375; 99284; J2270; J2405

== ENCOUNTER 2018-01-22 06:25 | Emergency (ER) | payer OTHER ==
[~2018-01-22] VITALS: Ht 160 cm; Wt 154.2 kg
[~2018-01-22 06:25] MED LIST changes: +LACTULOSE20 GM/301 ORAL; +NITROFURANTOIN100 M2 ORAL
[2018-01-22 06:45] VITALS: BP 118/68
--- NOTE | 2018-01-22 06:55 | Emergency Room Report ---
History of Present Illness General Chief Complaint: Dyspnea/Respdistress Source: Patient Present Illness HPI The patient presents with one hour of left posterior chest pain. It's sharp and aching and radiates to her shoulder and down her left arm. The patient has a history of pulmonary embolus in May. She's taking Elaquis at this time. She states it didn't feel like this in May. She denies any fevers or chills. The pain is positional and not pleuritic. She denies any trauma. There is no hemoptysis or productive cough. There are no fevers or chills. There is swelling in her legs that is unchanged. She denies any calf pain or knee pain like she had in May. Last night she took aspirin, Motrin and then this morning she took tramadol. Pain is rated 10/10 at this time. She is also complaining of sinus infection. This is a chronic problem. She is a diabetic on oral medication. No abdominal pain, NVD, dysuria, rashes, headache, anxiety/depression. 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, High Cholesterol Hx Hypertension: No Hx Asthma: No Hx Diabetes: Yes - CELLULITIS on Lt lower leg in 2012, DM II Hx Spinal Cord Injury: Yes - Bulging disc s/p fall 2009 Review of Systems All Other Systems: negative except mentioned in HPI Physical Exam Vital Signs Date Time Temp Pulse Resp B/P (MAP) Pulse Ox O2 Delivery O2 Flow Rate FiO2 01/22/18 06:29 97.3 72 20 161/89 98 Room Air Sp02 EP Interpretation: reviewed, normal General Appearance: well appearing, no apparent distress, GCS 15, obese Head: normocephalic Eyes: bilateral eye normal inspection, bilateral eye PERRL ENT: moist mucus membranes Neck: supple Respiratory: lungs clear, normal breath sounds, other - Muscle tenderness of inside of the scapula on the left-hand side which re-creates the pain. Cardiovascular #1: regular rate, rhythm, edema - Trace bilaterally Cardiovascular #2: 2+ radial (R) Gastrointestinal: normal inspection, normal bowel sounds, non tender, no mass, non-distended Musculoskeletal: back normal - see chest, gait/station normal, normal range of motion, no calf tenderness, Tabitha's Sign negative Neurologic: alert, oriented x3, grossly normal Psychiatric: mood/affect normal Skin: normal inspection, warm/dry Medical Decision Making Diagnostic Impression: Primary Impression: Chest pain Qualified Codes: R07.9 - Chest pain, unspecified Additional Impressions: Muscle spasm Chronic sinusitis Qualified Codes: J32.9 - Chronic sinusitis, unspecified BMI 60.0-69.9, adult DM2 (diabetes mellitus, type 2) Qualified Codes: E11.9 - Type 2 diabetes mellitus without complications ER Course Patient with morbid obesity and prior history of pulmonary embolus presents with left-sided chest pain. Differential includes muscle spasm, pulmonary embolus, acute myocardial infarction amongst others. Infectious etiology is less likely. When she presented with pulmonary embolus in May her oxygen saturation was low. She was not tachycardic at that time. She states this feels different to her and she's taking Elaquis however we still need to exclude pulmonary embolus. D-dimer will be obtained along with EKG, chest x- ray and other labs. The patient will be treated with analgesics and a dose of Ativan. EKG was sinus arrhythmia and nonspecific ST-T wave changes. Chest x-ray no infiltrates poor inspiration, double density R heart border. Labs significant for normal white count, CMP and negative d-dimer. Glucose 164. (Discussed CXR with radiologist and CT reviewed. [place] probable pericardial fat.) Patient is improved with pain now down to 4/10. She's sleeping. We discussed treatment plan including following up with her doctor for physical therapy, heat and rest and massage. She states she has 3 Tramadol left from prior Rx. Patient stable for outpatient observation and treatment. Laboratory Tests Test 01/22/18 06:55 White Blood Count 8.2 K/UL (4.8-10.8) Red Blood Count 4.78 M/UL (4.20-5.40) Hemoglobin 12.2 G/DL (12.0-16.0) Hematocrit 37.7 % (37.0-47.0) Mean Corpuscular Volume 79 FL (80-99) L Mean Corpuscular Hemoglobin 25.5 PG (27.0-31.0) L Mean Corpuscular Hemoglobin Concent 32.3 G/DL (32.0-36.0) Red Cell Distribution Width 13.8 % (11.6-14.8) Platelet Count 181 K/UL (150-450) Mean Platelet Volume 9.3 FL (6.5-10.1) Neutrophils (%) (Auto) 50.2 % (45.0-75.0) Lymphocytes (%) (Auto) 41.5 % (20.0-45.0) Monocytes (%) (Auto) 5.2 % (1.0-10.0) Eosinophils (%) (Auto) 2.5 % (0.0-3.0) Basophils (%) (Auto) 0.6 % (0.0-2.0) Prothrombin Time 10.1 SEC (9.30-11.50) Prothrombin Time INR 1.0 (0.9-1.1) PTT 25 SEC (23-33) D-Dimer 0.44 mg/L FEU (0.00-0.49) Urine Color Pale yellow Urine Appearance Clear Urine pH 6 (4.5-8.0) Urine Specific [place] 1.020 (1.005-1.035) Urine Protein 2+ (NEGATIVE) H Urine Glucose (UA) 2+ (NEGATIVE) H Urine Ketones Negative (NEGATIVE) Urine Blood Negative (NEGATIVE) Urine Nitrite Negative (NEGATIVE) Urine Bilirubin Negative (NEGATIVE) Urine Urobilinogen Normal MG/DL (0.0-1.0) Urine Leukocyte Esterase 1+ (NEGATIVE) H Urine RBC 0 /HPF (0 - 2) Urine WBC 2-4 /HPF (0 - 2) Urine Squamous Epithelial Cells Few /LPF (NONE/OCC) Urine Bacteria Occasional /HPF (NONE) Sodium Level 139 MMOL/L (136-145) Potassium Level 3.9 MMOL/L (3.5-5.1) Chloride Level 103 MMOL/L (98-107) Carbon Dioxide Level 30 MMOL/L (21-32) Anion Gap 6 mmol/L (5-15) Blood Urea Nitrogen 11 mg/dL (7-18) Creatinine 0.9 MG/DL (0.55-1.30) Estimate Glomerular Filtration Rate > 60 mL/min (>60) Glucose Level 164 MG/DL (74-106) H Calcium Level 9.3 MG/DL (8.5-10.1) Total Bilirubin 0.2 MG/DL (0.2-1.0) Aspartate Amino Transferase (AST) 21 U/L (15-37) Alanine Aminotransferase (ALT) 38 U/L (12-78) Alkaline Phosphatase 138 U/L (46-116) H Total Creatine Kinase 146 U/L (26-308) Troponin I 0.003 ng/mL (0.000-0.056) Pro-B-Type Natriuretic Peptide 77 pg/mL (0-125) Total Protein 8.5 G/DL (6.4-8.2) H Albumin 3.5 G/DL (3.4-5.0) Globulin 5.0 g/dL Albumin/Globulin Ratio 0.7 (1.0-2.7) L EKG Diagnostic Results Rate: normal Rhythm: NSR ST Segments: no acute changes - some ST changes, no ST inversions Rhythm Strip Diag. Results EP Interpretation: yes Rhythm: NSR, no PVC's, no ectopy Chest X-Ray Diagnostic Results Chest X-Ray Diagnostic Results : Chest X-Ray Ordered: Yes # of Views/Limited/Complete: 1 View Indication: Chest Pain Interpretation: no consolidation, no pneumothorax, other - double density R heart border Impression: Other Electronically Signed by: Electronically signed by Sebastien Galvan MD Last Vital Signs Date Time Temp Pulse Resp B/P (MAP) Pulse Ox O2 Delivery O2 Flow Rate FiO2 01/22/18 08:59 97.6 73 14 112/70 96 Room Air Status: improved Disposition: HOME, SELF-CARE Condition: Improved Scripts Acetaminophen (Tylenol) 325 Mg Tablet 650 MG ORAL Q6H PRN for Prn Pain/Headache/Temp > 101, #20 TAB 0 Refills Prov: Sebastien Galvan MD 01/22/18 Methocarbamol* (ROBAXIN*) 500 Mg Tablet 500 MG PO TID, #10 TAB 0 Refills Prov: Sebastien Galvan MD 01/22/18 Chlorpheniramine Maleate (CHLOR-TRIMETON) 4 Mg Tablet 4 MG PO Q6HR, #14 TAB Prov: Sebastien Galvan MD 01/22/18 Tramadol Hcl* (ULTRAM*) 50 Mg Tablet 50 MG ORAL Q6H PRN for For Pain, #6 TAB 0 Refills Prov: Sebastien Galvan MD 01/22/18 Sebastien Galvan MD Jan 22, 2018 06:55
[2018-01-22] MEDS ORDERED: Morphine Sulfate 4mg/ml Inj (IV/IM USE ONLY) IVP ONE (07:00)
[2018-01-22] MEDS ORDERED: LORazepam Inj 2mg/ml 1ml IV ONE (07:00)
[2018-01-22 07:07] LABS: APPEARANCE,URINE CLEAR; BILIRUBIN, URINE NEGATIVE (NEGATIVE); COLOR,URINE PALE YELLOW; GLUCOSE, URINE (UA) 2+ (NEGATIVE); KETONES,URINE NEGATIVE (NEGATIVE); LEUKOCYTE ESTERASE ,URINE 1+ (NEGATIVE); NITRITE,URINE NEGATIVE (NEGATIVE); PH,URINE 6 (4.5-8.0); PROTEIN,URINE 2+ (NEGATIVE); UROBILINOGEN,URINE NORMAL MG/DL (0.0-1.0)
[2018-01-22 07:14] LABS: BASOPHILS % (AUTO) 0.6 % (0.0-2.0); EOSINOPHILS % (AUTO) 2.5 % (0.0-3.0); HEMATOCRIT 37.7 % (37.0-47.0); HEMOGLOBIN 12.2 G/DL (12.0-16.0); LYMPHOCYTES % (AUTO) 41.5 % (20.0-45.0); MEAN CORPUSCULAR VOLUME 79 FL (80-99); MONOCYTES % (AUTO) 5.2 % (1.0-10.0); NEUTROPHILS % (AUTO) 50.2 % (45.0-75.0); PLATELET COUNT 181 K/UL (150-450); RED BLOOD COUNT 4.78 M/UL (4.20-5.40); RED CELL DISTRIBUTION WIDTH 13.8 % (11.6-14.8); WHITE BLOOD COUNT 8.2 K/UL (4.8-10.8)
[2018-01-22 07:15] VITALS: BP_SYST 118; BP_SYST 137; BP_DIAS 68; BP_DIAS 74
[2018-01-22 07:22] LABS: ANION GAP 6 mmol/L (5-15); BLOOD UREA NITROGEN 11 mg/dL (7-18); CALCIUM 9.3 MG/DL (8.5-10.1); CARBON DIOXIDE 30 MMOL/L (21-32); CHLORIDE 103 MMOL/L (98-107); CREATININE 0.9 MG/DL (0.55-1.30); POTASSIUM 3.9 MMOL/L (3.5-5.1); SODIUM 139 MMOL/L (136-145)
[2018-01-22 07:32] LABS: ALANINE AMINOTRANSFERASE 38 U/L (12-78); ALBUMIN 3.5 G/DL (3.4-5.0); ALBUMIN/GLOBULIN RATIO 0.7 (1.0-2.7); ALKALINE PHOSPHATASE 138 U/L (46-116); ASPARTATE AMINO TRANSFERASE 21 U/L (15-37); BILIRUBIN,TOTAL 0.2 MG/DL (0.2-1.0); CREATINE KINASE 146 U/L (26-308)
[2018-01-22] MEDS ORDERED: TRAMADOL HCL50 MG ORAL (08:11)
[2018-01-22] MEDS ORDERED: ROBAXIN500 MG PO (08:11)
[2018-01-22] MEDS ORDERED: TYLENOL325 MG ORAL (08:11)
[2018-01-22] MEDS ORDERED: CHLOR-TRIMETON4 MG PO (08:11)
--- NOTE | 2018-01-22 08:30 | Diagnostic Imaging Report ---
EXAM: XR Chest, 1 View CLINICAL HISTORY: CP TECHNIQUE: Frontal view of the chest. COMPARISON: No relevant prior studies available. FINDINGS: Lungs: Hypoventilatory lungs. Bibasilar lung atelectasis. Vascularity within normal limits. Pleural space: Unremarkable. No pneumothorax. Heart: There is an opacity outlining the right cardiac and mediastinal border of uncertain etiology. Mediastinum: See above. Bones/joints: Unremarkable. IMPRESSION: There is an opacity outlining the right cardiac and mediastinal border of uncertain etiology. Possibly effusion. Consider CT. Critical Value Communications 01/22/18 09:03 Call From [facility] Dr. Galvan on 01/22 08:48 (-08:00)
[2018-01-22 08:59] VITALS: BP 112/70
== END 2018-01-22 09:15 | disposition home or self-care (01) ==
LOC: EMR 07:02
DX: R07.9 Chest pain, unspecified (principal); J32.9 Chronic sinusitis, unspecified; E11.9 Type 2 diabetes mellitus without complications; E66.01 Morbid (severe) obesity due to excess calories; Z68.44 Body mass index [BMI] 60.0-69.9, adult; Z86.711 Personal history of pulmonary embolism; Z86.718 Personal history of other venous thrombosis and embolism; Z79.01 Long term (current) use of anticoagulants
CPT/HCPCS: 36415; 71045; 80053; 81003; 82550; 83880; 84484; 85025; 85379; 85610; 85730; 96374; 96375; 99284; J2270; J2405

== ENCOUNTER 2018-01-27 17:34 | Emergency (ER) | payer OTHER ==
[~2018-01-27] VITALS: Ht 160 cm; Wt 154.2 kg
[~2018-01-27 17:34] MED LIST changes: +CHLOR-TRIMETON4 MG PO; +ROBAXIN500 MG PO; +TYLENOL325 MG ORAL
[2018-01-27 17:45] VITALS: BP 179/99
[2018-01-27] MEDS ORDERED: METFORMIN HCL1000 M1 ORAL (17:45)
[2018-01-27] MEDS ORDERED: ATORVASTATIN CA10 MG ORAL (17:45)
[2018-01-27] MEDS ORDERED: Cyclobenzaprine 10mg Tab ORAL ONE (18:00)
[2018-01-27] MEDS ORDERED: Ketorolac 60mg Inj IM ONE (18:00)
[2018-01-27] MEDS ORDERED: AFRIN NASAL SPR30 ML NASAL (19:19)
[2018-01-27] MEDS ORDERED: TYLENOL EXTRA500 MG ORAL (19:19)
[2018-01-27] MEDS ORDERED: CYCLOBENZAPRINE10 MG ORAL (19:19)
[2018-01-27 19:25] VITALS: BP 155/86
--- NOTE | 2018-01-27 23:27 | Emergency Room Report ---
History of Present Illness General Chief Complaint: Pain Source: Patient, Medical Record Present Illness HPI The patient is a 47-year-old female presenting for left upper back pain which began approximately one week prior. She was seen in this emergency department at that time and had extensive workup which was essentially negative. She was given Tylenol and a muscle relaxer and states that symptoms only mildly improved. Pain is a 7 out of 10 sharp sensation to the left upper back and neck. Worse with movement and touch. She denies any known injury to the area. 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, High Cholesterol Hx Hypertension: No Hx Asthma: No Hx Diabetes: Yes - CELLULITIS on Lt lower leg in 2012, DM II Hx Spinal Cord Injury: Yes - Bulging disc s/p fall 2009 Review of Systems All Other Systems: negative except mentioned in HPI Physical Exam Vital Signs Date Time Temp Pulse Resp B/P (MAP) Pulse Ox O2 Delivery O2 Flow Rate FiO2 01/27/18 17:42 98.2 81 18 179/99 95 Room Air Sp02 EP Interpretation: reviewed, normal General Appearance: no apparent distress, alert, GCS 15, non-toxic Head: normocephalic, atraumatic Eyes: bilateral eye normal inspection, bilateral eye PERRL ENT: no angioedema, uvula midline, moist mucus membranes, nasal congestion Neck: tender lateral Respiratory: chest non-tender, lungs clear, normal breath sounds, speaking full sentences Cardiovascular #1: regular rate, rhythm, no edema Musculoskeletal: tender - TTP over the L lateral neck and trapezius Neurologic: alert, oriented x3, responsive, motor strength/tone normal, sensory intact, speech normal Psychiatric: judgement/insight normal, memory normal, mood/affect normal, no suicidal/homicidal ideation Skin: normal color, no rash, warm/dry, well hydrated Procedures Splinting Splinting : Consent: Verbal Location: L arm Pre-Made Type: sling Pre-Proc Neuro Vasc Exam: normal Post-Proc Neuro Vasc Exam: normal Patient Tolerated: Well Complications: None Medical Decision Making PA Attestation Dr. Quiñonez is my supervising physician. Patient management was discussed with my supervising physician Diagnostic Impression: Primary Impression: Sinusitis Qualified Codes: J32.9 - Chronic sinusitis, unspecified Additional Impression: Muscle strain ER Course The patient is a 47-year-old female presenting for left upper back pain which began approximately one week prior. Ddx considered include but not limited to sprain/strain, fracture, contusion, muscle spasm PE: Afebrile. RRR Lungs CTA bilat. Normal rate TTP over the L lateral neck and trapezius. Full AROM intact. No rash. No edema Lidocaine patches placed, she is given IM Toradol, and muscle relaxer. She states that symptoms have improved Left arm sling is placed She is discharged home with pain medication and muscle relaxer. She is also given prescription for Afrin which is to be used short term for nasal congestion. She was told she needs to follow-up with primary doctor as soon as possible for further evaluation and treatment. ER precautions given Last Vital Signs Date Time Temp Pulse Resp B/P (MAP) Pulse Ox O2 Delivery O2 Flow Rate FiO2 01/27/18 19:25 98.0 82 18 155/86 97 Room Air Status: improved Disposition: HOME, SELF-CARE Condition: Improved Scripts Oxymetazoline HCl (Afrin) 15 Ml [place] 2 SPRAYS NASAL TWICE A DAY, #30 SPRAY Prov: TERZIAN,FAYE P.A. 01/27/18 Acetaminophen* (TYLENOL EXTRA STRENGTH*) 500 Mg Tablet 500 MG ORAL Q8H PRN for Prn Headache/Temp > 101, #30 TAB 0 Refills Prov: TERZIAN,FAYE P.A. 01/27/18 Cyclobenzaprine Hcl* (FLEXERIL*) 10 Mg Tablet 10 MG ORAL THREE TIMES A DAY, #21 TAB Prov: TERZIAN,FAYE P.A. 01/27/18 Referrals: NON PHYSICIAN (PCP) Patient Instructions: Sinusitis, Adult, Muscle Strain Additional Instructions: I discussed my findings with the patient. All questions and concerns have been answered. Treatment and medication compliance have been addressed. I advised the patient that they need to follow up with PMD in 3-5 days. Return to ED if symptoms worsen, new symptoms arise such as cough shortness of breath, leg pain or swelling, or if needed for any reason. Patient verbalized understanding of discharge instructions. FAYE ST Jan 27, 2018 23:27
== END 2018-01-27 19:25 | disposition home or self-care (01) ==
LOC: EMR 17:56
DX: S29.012A Strain of muscle and tendon of back wall of thorax, initial encounter (principal); J32.9 Chronic sinusitis, unspecified; X58.XXXA Exposure to other specified factors, initial encounter; Y92.9 Unspecified place or not applicable; Z86.718 Personal history of other venous thrombosis and embolism; E11.9 Type 2 diabetes mellitus without complications
CPT/HCPCS: 96372; 99283

== ENCOUNTER 2018-07-03 23:54 | Emergency (ER) | payer SELFPAY ==
[~2018-07-03] VITALS: Ht 160 cm; Wt 154.2 kg
[~2018-07-03 23:54] MED LIST changes: +AFRIN NASAL SPR30 ML NASAL; +ATORVASTATIN CA10 MG ORAL; +METFORMIN HCL1000 M1 ORAL; +TYLENOL EXTRA500 MG ORAL
[2018-07-04] VITALS: BP 112/46
--- NOTE | 2018-07-04 | NUR ---
ED Nurse Note: Pt arrived ambulatory into ED for compliant of LLE pain. Redness and swelling noted throughout ankle. Leg sensative to touch. Pt states pain began last night. Pt has frequent reoccurances of issue. Pt resting comfortably at beside. showing no signs of distress. VSS
[2018-07-04] MEDS ORDERED: Clindamycin 900mg 50 ML IVPB ONE (00:30)
[2018-07-04] MEDS ORDERED: Bacitracin Oint UD TOPIC ONE (00:30)
[2018-07-04 00:50] LABS: BASOPHILS % (AUTO) 1.8 % (0.0-2.0); EOSINOPHILS % (AUTO) 3.1 % (0.0-3.0); HEMATOCRIT 37.4 % (37.0-47.0); HEMOGLOBIN 11.8 G/DL (12.0-16.0); LYMPHOCYTES % (AUTO) 48.3 % (20.0-45.0); MEAN CORPUSCULAR VOLUME 81 FL (80-99); MONOCYTES % (AUTO) 4.3 % (1.0-10.0); NEUTROPHILS % (AUTO) 42.5 % (45.0-75.0); PLATELET COUNT 113 K/UL (150-450); RED BLOOD COUNT 4.63 M/UL (4.20-5.40); RED CELL DISTRIBUTION WIDTH 14.5 % (11.6-14.8); WHITE BLOOD COUNT 6.3 K/UL (4.8-10.8)
[2018-07-04 00:56] LABS: ANION GAP 7 mmol/L (5-15); BLOOD UREA NITROGEN 15 mg/dL (7-18); CALCIUM 9.8 MG/DL (8.5-10.1); CARBON DIOXIDE 29 MMOL/L (21-32); CHLORIDE 104 MMOL/L (98-107); CREATININE 1.3 MG/DL (0.55-1.30); POTASSIUM 3.9 MMOL/L (3.5-5.1); SODIUM 140 MMOL/L (136-145)
[2018-07-04] MEDS ORDERED: CLINDAMYCIN HC300 MG ORAL (01:11)
--- NOTE | 2018-07-04 01:12 | Emergency Room Report ---
History of Present Illness General Chief Complaint: General Complaint Source: Patient Present Illness HPI This is a 47-year-old female with history hypertension diabetes. She also has recurrent cellulitis to the left lower extremity. She presents with chief complaint of redness and swelling to the left lower extremity. Onset yesterday. Itching in nature. Little swollen. No fever chills but no nausea no vomiting. This no drainage. Denies any other complaint. Similar to previous cellulitis. 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, High Cholesterol Hx Hypertension: No Hx Asthma: No Hx Diabetes: Yes - type 2 Hx Spinal Cord Injury: Yes - Bulging disc s/p fall 2009 Review of Systems Eye: Denies: eye pain, blurred vision ENT: Denies: ear pain, nose congestion, throat swelling Respiratory: Denies: cough, shortness of breath Cardiovascular: Denies: chest pain, palpitations Gastrointestinal: Denies: abdominal pain, diarrhea, nausea, vomiting Musculoskeletal: Reports: muscle pain; Denies: back pain, joint pain Skin: Denies: rash Neurological: Denies: headache, numbness Endocrine: Denies: increased thirst, increased urine Hematologic/Lymphatic: Denies: easy bruising All Other Systems: negative except mentioned in HPI Physical Exam Vital Signs Date Time Temp Pulse Resp B/P (MAP) Pulse Ox O2 Delivery O2 Flow Rate FiO2 07/03/18 23:59 97.9 92 15 92 Room Air 07/04/18 00:00 112/46 vitals unremarkable Sp02 EP Interpretation: reviewed, normal General Appearance: well appearing, no apparent distress, alert, obese Head: normocephalic, atraumatic Eyes: bilateral eye PERRL, bilateral eye EOMI ENT: hearing grossly normal, normal pharynx Neck: full range of motion, supple, no meningismus Respiratory: chest non-tender, lungs clear, normal breath sounds Cardiovascular #1: regular rate, rhythm, no murmur Gastrointestinal: normal bowel sounds, non tender, no mass, no organomegaly, no bruit, non-distended Musculoskeletal: back normal, gait/station normal, normal range of motion, other - Left lower extremity: She has some mild edema with erythema to the mid calf to ankle. Slight oozing medially. Pulses normal. Neurologic: alert, oriented x3 Psychiatric: mood/affect normal Skin: warm/dry Medical Decision Making Diagnostic Impression: Primary Impression: Cellulitis of left lower extremity Additional Impression: DM2 (diabetes mellitus, type 2) Qualified Codes: E11.8 - Type 2 diabetes mellitus with unspecified complications ER Course Patient with recurrent cellulitis of her lower extremity. Cultures sent. She said she got better on clindamycin. IV mycin given here. No evidence of DVT. Patient is currently taking Elliquis. Last Vital Signs Date Time Temp Pulse Resp B/P (MAP) Pulse Ox O2 Delivery O2 Flow Rate FiO2 07/04/18 00:00 97.9 78 15 112/46 92 Room Air Status: improved Disposition: HOME, SELF-CARE Condition: Stable Scripts Clindamycin Hcl (CLINDAMYCIN HCL) 300 Mg Capsule 300 MG ORAL THREE TIMES A DAY, #21 CAP Prov: J Carlos Aguilera MD 07/04/18 Referrals: NOT CHOSEN IPA/,REFERRING (PCP) Additional Instructions: Elevate leg. Take your blood pressure and diabetes medication. Follow-up with your DrSukhdev in 2 to 3 days for recheck. Return if symptom worsen. J Carlos Aguilera MD July 04, 2018 01:12
--- NOTE | 2018-07-04 01:19 | NUR ---
ED Nurse Note: Pt cleared by . Pt A/Ox4, ambulatory with steady gait. Discharge paperwork and prescriptions provided. Pt verbalized understanding of all instructions. All belongings taken. Pt showed no signs of acute distress. VSS. ID band and IV removed.
[2018-07-04 01:20] VITALS: BP 119/91
== END 2018-07-04 01:22 | disposition home or self-care (01) ==
LOC: EMR 07-04 00:17
DX: E11.8 Type 2 diabetes mellitus with unspecified complications (principal); E11.9 Type 2 diabetes mellitus without complications; I10 Essential (primary) hypertension; Z86.718 Personal history of other venous thrombosis and embolism; Z86.711 Personal history of pulmonary embolism; E78.00 Pure hypercholesterolemia, unspecified; E66.9 Obesity, unspecified; Z79.01 Long term (current) use of anticoagulants
CPT/HCPCS: 36415; 80048; 85025; 87070; 87205; 96365; 99284; S0077

== ENCOUNTER 2018-09-17 06:52 | Inpatient (IN) | payer MEDICAID ==
[~2018-09-17] VITALS: Ht 160 cm; Wt 167.3 kg
--- NOTE | 2018-09-17 07:04 | Emergency Room Report ---
History of Present Illness General Chief Complaint: Chest Pain Source: Patient Present Illness HPI Patient is a 47-year-old female who presented after increased chest discomfort. Patient reports having sharp pain to the center of her chest. She reports having prior history of pulmonary embolism and states that she had previously been on Eliquis. She discontinued medication approximately 1 week ago. Patient had been having persistent leg swelling for several weeks. She reports having some associated shortness of breath. She denies any fever. She had reportedly had sudden onset of symptoms approximate 1 hour ago. She denies any prior cardiac condition. She denies being a smoker. She does not take oral contraceptives. Allergies: Coded Allergies: No Known Allergies (Unverified , 08/31/14) Patient History Past Medical History: see triage record Reviewed Nursing Documentation: PMH: Agreed; PSxH: Agreed Nursing Documentation-PMH Hx Cardiac Problems: Yes - 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, High Cholesterol Hx Hypertension: No Hx Asthma: No Hx Diabetes: Yes - TYPE 2 Hx Spinal Cord Injury: Yes - Bulging disc s/p fall 2009 Review of Systems All Other Systems: negative except mentioned in HPI Physical Exam Vital Signs Date Time Temp Pulse Resp B/P (MAP) Pulse Ox O2 Delivery O2 Flow Rate FiO2 09/17/18 06:55 98.1 87 15 94 Room Air Sp02 EP Interpretation: reviewed, normal General Appearance: normal inspection, alert, obese Head: atraumatic ENT: normal ENT inspection, hearing grossly normal, normal voice Neck: normal inspection, full range of motion, supple, no bony tend Respiratory: normal inspection, lungs clear, normal breath sounds, no respiratory distress, no retraction, no wheezing Cardiovascular #1: regular rate, rhythm, edema - 4+ Gastrointestinal: normal inspection, normal bowel sounds, non tender, soft, no guarding, no hernia Genitourinary: no CVA tenderness Musculoskeletal: normal inspection, back normal, normal range of motion Neurologic: normal inspection, alert, oriented x3, responsive, pharmacy clinical coordinator III-XII nml as tested, speech normal Psychiatric: normal inspection, judgement/insight normal, mood/affect normal Medical Decision Making Diagnostic Impression: Primary Impression: Chest pain Additional Impressions: Hx of pulmonary embolus Pedal edema ER Course Patient presented for chest pain. Differential diagnosis included but was not limited to acute coronary syndrome, pulmonary embolism, pneumonia, aortic dissection, shingles, pneumothorax, aortic dissection, esophageal rupture, pericarditis. Because of complexity of patient's case laboratory testing and imaging studies were ordered.Patient was noted to have prior history of pulmonary embolism in the past. She had previously been on anticoagulation with Eliquis. Patient was noted to be above gantry limits for CT. Patient will be empirically anticoagulated. Patient was discharged home discussed with Dr. Nighat Perez for inpatient management due to severe chest pain. Patient was additionally given IV Lasix chest x-ray 1 view read by radiology showed normal cardiac size without evident infiltrate. Patient will require further work-up. DVT ultrasound is currently pending. Labs Test 09/17/18 07:10 09/17/18 08:34 White Blood Count 9.8 K/UL (4.8-10.8) Red Blood Count 4.61 M/UL (4.20-5.40) Hemoglobin 11.9 G/DL (12.0-16.0) Hematocrit 38.5 % (37.0-47.0) Mean Corpuscular Volume 84 FL (80-99) Mean Corpuscular Hemoglobin 25.8 PG (27.0-31.0) Mean Corpuscular Hemoglobin Concent 30.9 G/DL (32.0-36.0) Red Cell Distribution Width 15.6 % (11.6-14.8) Platelet Count 183 K/UL (150-450) Mean Platelet Volume 9.9 FL (6.5-10.1) Neutrophils (%) (Auto) 58.8 % (45.0-75.0) Lymphocytes (%) (Auto) 32.8 % (20.0-45.0) Monocytes (%) (Auto) 5.5 % (1.0-10.0) Eosinophils (%) (Auto) 2.1 % (0.0-3.0) Basophils (%) (Auto) 0.8 % (0.0-2.0) Activated Partial Thromboplast Time 22 SEC (23-33) D-Dimer 1.53 mg/L FEU (0.00-0.49) Sodium Level 136 MMOL/L (136-145) Potassium Level 4.0 MMOL/L (3.5-5.1) Chloride Level 100 MMOL/L (98-107) Carbon Dioxide Level 27 MMOL/L (21-32) Anion Gap 9 mmol/L (5-15) Blood Urea Nitrogen 11 mg/dL (7-18) Creatinine 1.1 MG/DL (0.55-1.30) Estimat Glomerular Filtration Rate > 60 mL/min (>60) Glucose Level 417 MG/DL (74-106) Calcium Level 9.5 MG/DL (8.5-10.1) Total Bilirubin 0.2 MG/DL (0.2-1.0) Aspartate Amino Transf (AST/SGOT) 30 U/L (15-37) Alanine Aminotransferase (ALT/SGPT) 38 U/L (12-78) Alkaline Phosphatase 148 U/L (46-116) Total Creatine Kinase 143 U/L (26-308) Creatine Kinase MB 0.5 NG/ML (0.0-3.6) Creatine Kinase MB Relative Index 0.3 Troponin I 0.015 ng/mL (0.000-0.056) Pro-B-Type Natriuretic Peptide 31 pg/mL (0-125) Total Protein 7.6 G/DL (6.4-8.2) Albumin 3.1 G/DL (3.4-5.0) Globulin 4.5 g/dL Albumin/Globulin Ratio 0.7 (1.0-2.7) Urine Opiates Screen Negative (NEGATIVE) Urine Barbiturates Screen Negative (NEGATIVE) Phencyclidine (PCP) Screen Negative (NEGATIVE) Urine Amphetamines Screen Negative (NEGATIVE) Urine Benzodiazepines Screen Negative (NEGATIVE) Urine Cocaine Screen Negative (NEGATIVE) Urine Marijuana (THC) Screen Negative (NEGATIVE) EKG Diagnostic Results Rate: normal Rhythm: NSR ST Segments: no acute changes Last Vital Signs Date Time Temp Pulse Resp B/P (MAP) Pulse Ox O2 Delivery O2 Flow Rate FiO2 09/17/18 06:55 98.1 87 15 94 Room Air Status: unchanged Disposition: ADMITTED INPATIENT Condition: Stable Ace Vogt MD Sep 17, 2018 07:04
[2018-09-17] MEDS ORDERED: Aspirin Baby 81mg ORAL ONE (07:15)
[2018-09-17] MEDS ORDERED: Heparin 5000 units/ml inj IV ONE (07:15)
[2018-09-17] MEDS ORDERED: Heparin 25,000u/D5W 500ml 500 ML IV SCH ×3 (07:15→11:30)
--- NOTE | 2018-09-17 07:15 | NUR ---
ED Nurse Note: Pt ambulated to ED c/o 07/31 sharp stabbing chest pain since 0500, pt also states her legs have been sweling for months, pt denies CHF. Pt is living in car currently and has ran out of metformin. Hx DVT
--- NOTE | 2018-09-17 07:17 | NUR ---
HAND-OFF: Report given to MARTY Poole.
[2018-09-17 07:20] VITALS: BP 153/75
--- NOTE | 2018-09-17 07:20 | NUR ---
ED Nurse Note: recieved pt on bed, stating that she had a sharp pain started this morning, and was having edema on bilateral lower legs for 3 months now and havent been taking eliquis for a week now. will continue to monitor.
[2018-09-17 07:26] LABS: BASOPHILS % (AUTO) 0.8 % (0.0-2.0); EOSINOPHILS % (AUTO) 2.1 % (0.0-3.0); HEMATOCRIT 38.5 % (37.0-47.0); HEMOGLOBIN 11.9 G/DL (12.0-16.0); LYMPHOCYTES % (AUTO) 32.8 % (20.0-45.0); MEAN CORPUSCULAR VOLUME 84 FL (80-99); MONOCYTES % (AUTO) 5.5 % (1.0-10.0); NEUTROPHILS % (AUTO) 58.8 % (45.0-75.0); PLATELET COUNT 183 K/UL (150-450); RED BLOOD COUNT 4.61 M/UL (4.20-5.40); RED CELL DISTRIBUTION WIDTH 15.6 % (11.6-14.8); WHITE BLOOD COUNT 9.8 K/UL (4.8-10.8)
[2018-09-17 07:40] LABS: ANION GAP 9 mmol/L (5-15); BLOOD UREA NITROGEN 11 mg/dL (7-18); CALCIUM 9.5 MG/DL (8.5-10.1); CARBON DIOXIDE 27 MMOL/L (21-32); CHLORIDE 100 MMOL/L (98-107); CREATININE 1.1 MG/DL (0.55-1.30); SODIUM 136 MMOL/L (136-145)
--- NOTE | 2018-09-17 07:50 | Diagnostic Imaging Report ---
EXAM: XR Chest, 1 View CLINICAL HISTORY: CP TECHNIQUE: Frontal view of the chest. COMPARISON: 01/22/18 chest xray FINDINGS: Lungs: Hypoventilatory chest. Lung volumes are lower than before but otherwise show no significant interval change. Pleural space: Unremarkable. No pneumothorax. Heart: Unremarkable. No cardiomegaly. Mediastinum: Unremarkable. Bones/joints: Unremarkable. IMPRESSION: No acute cardiopulmonary process.
--- NOTE | 2018-09-17 07:53 | NUR ---
ED Nurse Note: pt was medicated as ordered, pt able to tolerate po mes, heparin 5000 unit given bolus per ermd order. call pharmacy for the heparin drip and stated start 14unit/kg/hr dose. heparin drip started. will continue to monitor
[2018-09-17 08:10] LABS: ALANINE AMINOTRANSFERASE 38 U/L (12-78); ALBUMIN 3.1 G/DL (3.4-5.0); ALBUMIN/GLOBULIN RATIO 0.7 (1.0-2.7); ALKALINE PHOSPHATASE 148 U/L (46-116); ASPARTATE AMINO TRANSFERASE 30 U/L (15-37); BILIRUBIN,TOTAL 0.2 MG/DL (0.2-1.0); CKMB 0.5 NG/ML (0.0-3.6); CREATINE KINASE 143 U/L (26-308)
--- NOTE | 2018-09-17 08:33 | NUR ---
ED Nurse Note: blood drawn to pt for blood culture and was sent to lab. pt able to give urine sample and was sent to lab. will continue to monitor.
[2018-09-17 08:55] VITALS: BP 122/100
--- NOTE | 2018-09-17 09:38 | History and Physical ---
History of Present Illness General Date patient seen: Sep 17, 2018 Reason for Hospitalization: Chest Pain Present Illness HPI 47 year old female with PMH of prev DVT/PE, DM, HLD, obesity presented with complaints of chest discomfort x 1 hour prior to presentation. States she was walking when symptoms suddenly started, described pain as sharp, mid sternum, nonradiating, worse with deep breaths, associated with SOB. Pt states she has not been taking Eliquis for 2 weeks due to insurance issues. C/O persistent LE swelling for past month. Pt denies substance abuse, nausea, vomiting, headaches , blurry vision, urinary complaints, abdominal complaints, fevers, chills Allergies: Coded Allergies: No Known Allergies (Unverified , 08/31/14) Medication History Scheduled Apixaban (Eliquis), 5 MG PO BID Atorvastatin Calcium* (Lipitor*), Unknown Dose ORAL BEDTIME, (Reported) Clindamycin Hcl (Clindamycin Hcl), 300 MG ORAL THREE TIMES A DAY Metformin Hcl* (Metformin Hcl*), Unknown Dose ORAL DAILY, (Reported) Patient History History Provided By: Patient Healthcare decision maker Resuscitation status Advanced Directive on File Review of Systems ROS Narrative General ROS: no weight loss or fever Psychological ROS: no depression or mood changes, no memory loss Ophthalmic ROS: no visual changes or eye irritation ENT ROS: no nasal congestion, hearing loss, dizziness Allergy and Immunology ROS: no allergic symptoms or urticaria Hematological and Lymphatic ROS: no swollen glands, unusual bleeding or bruising Endocrine ROS: no polyuria, polydipsia, weight changes, temperature intolerance Respiratory ROS: no cough, c/o shortness of breath, no wheezing Cardiovascular ROS: sharp chest pain Gastrointestinal ROS: no abdominal pain, change in bowel habits, or black or bloody stools Musculoskeletal ROS: no myalgias or arthralgias Neurological ROS: no TIA or stroke symptoms Dermatological ROS: no new or changing skin lesions, rashes or pruritis Physical Exam Last 24 Hour Vital Signs Date Time Temp Pulse Resp B/P (MAP) Pulse Ox O2 Delivery O2 Flow Rate FiO2 09/17/18 08:55 74 18 122/100 95 Room Air 09/17/18 07:20 87 15 Room Air 09/17/18 07:20 98.1 87 15 153/75 94 Room Air 09/17/18 06:55 98.1 87 15 153/75 (101) 94 Room Air Laboratory Tests Test 09/17/18 07:10 09/17/18 08:34 White Blood Count 9.8 K/UL (4.8-10.8) Red Blood Count 4.61 M/UL (4.20-5.40) Hemoglobin 11.9 G/DL (12.0-16.0) L Hematocrit 38.5 % (37.0-47.0) Mean Corpuscular Volume 84 FL (80-99) Mean Corpuscular Hemoglobin 25.8 PG (27.0-31.0) L Mean Corpuscular Hemoglobin Concent 30.9 G/DL (32.0-36.0) L Red Cell Distribution Width 15.6 % (11.6-14.8) H Platelet Count 183 K/UL (150-450) Mean Platelet Volume 9.9 FL (6.5-10.1) Neutrophils (%) (Auto) 58.8 % (45.0-75.0) Lymphocytes (%) (Auto) 32.8 % (20.0-45.0) Monocytes (%) (Auto) 5.5 % (1.0-10.0) Eosinophils (%) (Auto) 2.1 % (0.0-3.0) Basophils (%) (Auto) 0.8 % (0.0-2.0) Activated Partial Thromboplast Time 22 SEC (23-33) L D-Dimer 1.53 mg/L FEU (0.00-0.49) H Sodium Level 136 MMOL/L (136-145) Potassium Level 4.0 MMOL/L (3.5-5.1) Chloride Level 100 MMOL/L (98-107) Carbon Dioxide Level 27 MMOL/L (21-32) Anion Gap 9 mmol/L (5-15) Blood Urea Nitrogen 11 mg/dL (7-18) Creatinine 1.1 MG/DL (0.55-1.30) Estimat Glomerular Filtration Rate > 60 mL/min (>60) Glucose Level 417 MG/DL (74-106) H Calcium Level 9.5 MG/DL (8.5-10.1) Total Bilirubin 0.2 MG/DL (0.2-1.0) Aspartate Amino Transf (AST/SGOT) 30 U/L (15-37) Alanine Aminotransferase (ALT/SGPT) 38 U/L (12-78) Alkaline Phosphatase 148 U/L (46-116) H Total Creatine Kinase 143 U/L (26-308) Creatine Kinase MB 0.5 NG/ML (0.0-3.6) Creatine Kinase MB Relative Index 0.3 Troponin I 0.015 ng/mL (0.000-0.056) Pro-B-Type Natriuretic Peptide 31 pg/mL (0-125) Total Protein 7.6 G/DL (6.4-8.2) Albumin 3.1 G/DL (3.4-5.0) L Globulin 4.5 g/dL Albumin/Globulin Ratio 0.7 (1.0-2.7) L Urine Opiates Screen Negative (NEGATIVE) Urine Barbiturates Screen Negative (NEGATIVE) Phencyclidine (PCP) Screen Negative (NEGATIVE) Urine Amphetamines Screen Negative (NEGATIVE) Urine Benzodiazepines Screen Negative (NEGATIVE) Urine Cocaine Screen Negative (NEGATIVE) Urine Marijuana (THC) Screen Negative (NEGATIVE) Height (Feet): 5 Height (Inches): 3.00 Weight (Pounds): 349 Medications Current Medications Medications (Trade) Dose Ordered Sig/Milo Route PRN Reason Start Time Stop Time Status Last Admin Dose Admin Heparin Sodium/ Dextrose 500 ml @ 44.325 mls/ hr ADJUST PER PROTOCOL IV 09/17/18 08:00 10/17/18 07:14 09/17/18 08:07 Objective Narrative General appearance: alert, cooperative, no distress, appears stated age, obese Head: Normocephalic, without obvious abnormality, atraumatic Eyes: conjunctivae/corneas clear. PERRL, EOM's intact. Fundi benign Throat: Lips, mucosa, and tongue normal. Teeth and gums normal Neck: supple, symmetrical, trachea midline, no adenopathy, thyroid: not enlarged , symmetric, no tenderness/mass/nodules, no carotid bruit and no JVD Lungs: clear to auscultation bilaterally Heart: regular rate and rhythm, S1, S2 normal, no murmur, click, rub or gallop Abdomen: soft, non-tender. Bowel sounds normal. No masses, no organomegaly Extremities: extremities normal, atraumatic, no cyanosis or edema Pulses: 2+ and symmetric Skin: Skin color, texture, turgor normal. No rashes or lesions Neurologic: Grossly normal Assessment/Plan Assessment/Plan: Pt presented with chest pain and SOB, admitted for poss PE and R/O ACS #Hx PE/ DVT - took AC for over 1 year off x 2 weeks due to insurance problems -Heparin GTT -pending VQ scan -pulonary consult appreciated -Echo reviewed #Chest pain r/o ACS -serial troponins and EKG - unremarkable -cardiology consult appreciated -pendign stress test results #HTN -cont lisinopril 10mg daily -hydralazine PRN #DM -cont ISS -Lantus 10units QHS started -carb controlled diet -CTM FSG Nighat Cali MD Sep 17, 2018 09:38
[2018-09-17] MEDS ORDERED: Milk of Magnesia 30ml Ud ORAL PRN (10:00)
[2018-09-17] MEDS ORDERED: HYDROcodone/Acetamin 5/325 tab ORAL PRN ×2 (10:00)
[2018-09-17] MEDS ORDERED: Albuterol/Ipratropium 3ml neb HHN PRN (10:00)
[2018-09-17] MEDS ORDERED: LORazepam Inj 2mg/ml 1ml IV PRN (10:00)
[2018-09-17 10:05] VITALS: BP 115/85
--- NOTE | 2018-09-17 10:30 | NUR ---
ED Nurse Note: attempted to give report to admitting nurse but no asigned nurse yet. will follow up
[2018-09-17 10:55] VITALS: BP 120/86
--- NOTE | 2018-09-17 10:59 | NUR ---
ED Nurse Note: report given to latha irving.
--- NOTE | 2018-09-17 11:00 | NUR ---
ED Nurse Note: pt was transfered to [facility] with stable vs and belongings was endorsed to latha irving.
--- NOTE | 2018-09-17 11:02 | NUR ---
NURSE NOTES: Received report from Zulema FERGUSON.
--- NOTE | 2018-09-17 11:10 | NUR ---
NURSE NOTES: Pt. on the unit. Pt. a/o x 4. No sign of distress. Denies pain at present. IV at left AC #20g. in placed patent/intact running Heparin drip at 14u/kg/hr. Tolerating well. No s/sx of active bleeding noted. PTT timed at 1400. Will cont. to monitor.
--- NOTE | 2018-09-17 11:21 | Cardiac Electrophysiology PN ---
Subjective Subjective [id number] Objective Last 24 Hour Vital Signs Date Time Temp Pulse Resp B/P (MAP) Pulse Ox O2 Delivery O2 Flow Rate FiO2 09/17/18 10:55 98.0 70 17 120/86 96 Room Air 09/17/18 10:05 98.0 72 12 115/85 97 Room Air 09/17/18 08:55 74 18 122/100 95 Room Air 09/17/18 07:20 87 15 Room Air 09/17/18 07:20 98.1 87 15 153/75 94 Room Air 09/17/18 06:55 98.1 87 15 153/75 (101) 94 Room Air Laboratory Tests Test 09/17/18 07:10 09/17/18 08:34 White Blood Count 9.8 K/UL (4.8-10.8) Red Blood Count 4.61 M/UL (4.20-5.40) Hemoglobin 11.9 G/DL (12.0-16.0) L Hematocrit 38.5 % (37.0-47.0) Mean Corpuscular Volume 84 FL (80-99) Mean Corpuscular Hemoglobin 25.8 PG (27.0-31.0) L Mean Corpuscular Hemoglobin Concent 30.9 G/DL (32.0-36.0) L Red Cell Distribution Width 15.6 % (11.6-14.8) H Platelet Count 183 K/UL (150-450) Mean Platelet Volume 9.9 FL (6.5-10.1) Neutrophils (%) (Auto) 58.8 % (45.0-75.0) Lymphocytes (%) (Auto) 32.8 % (20.0-45.0) Monocytes (%) (Auto) 5.5 % (1.0-10.0) Eosinophils (%) (Auto) 2.1 % (0.0-3.0) Basophils (%) (Auto) 0.8 % (0.0-2.0) Activated Partial Thromboplast Time 22 SEC (23-33) L D-Dimer 1.53 mg/L FEU (0.00-0.49) H Sodium Level 136 MMOL/L (136-145) Potassium Level 4.0 MMOL/L (3.5-5.1) Chloride Level 100 MMOL/L (98-107) Carbon Dioxide Level 27 MMOL/L (21-32) Anion Gap 9 mmol/L (5-15) Blood Urea Nitrogen 11 mg/dL (7-18) Creatinine 1.1 MG/DL (0.55-1.30) Estimat Glomerular Filtration Rate > 60 mL/min (>60) Glucose Level 417 MG/DL (74-106) H Calcium Level 9.5 MG/DL (8.5-10.1) Total Bilirubin 0.2 MG/DL (0.2-1.0) Aspartate Amino Transf (AST/SGOT) 30 U/L (15-37) Alanine Aminotransferase (ALT/SGPT) 38 U/L (12-78) Alkaline Phosphatase 148 U/L (46-116) H Total Creatine Kinase 143 U/L (26-308) Creatine Kinase MB 0.5 NG/ML (0.0-3.6) Creatine Kinase MB Relative Index 0.3 Troponin I 0.015 ng/mL (0.000-0.056) Pro-B-Type Natriuretic Peptide 31 pg/mL (0-125) Total Protein 7.6 G/DL (6.4-8.2) Albumin 3.1 G/DL (3.4-5.0) L Globulin 4.5 g/dL Albumin/Globulin Ratio 0.7 (1.0-2.7) L Urine Opiates Screen Negative (NEGATIVE) Urine Barbiturates Screen Negative (NEGATIVE) Phencyclidine (PCP) Screen Negative (NEGATIVE) Urine Amphetamines Screen Negative (NEGATIVE) Urine Benzodiazepines Screen Negative (NEGATIVE) Urine Cocaine Screen Negative (NEGATIVE) Urine Marijuana (THC) Screen Negative (NEGATIVE) Paulino Mcfarland MD Sep 17, 2018 11:21
[2018-09-17 12:00] VITALS: BP 149/67
--- NOTE | 2018-09-17 13:06 | Consultation ---
History of Present Illness General Date patient seen: Sep 17, 2018 Reason for Hospitalization: Chest Pain Present Illness HPI 47-year-old female who presented after increased chest discomfort. Patient reports having sharp pain to the center of her chest. She reports having prior history of pulmonary embolism and states that she had previously been on Eliquis. She discontinued medication approximately 1 week ago. Patient had been having persistent leg swelling for several weeks. She reports having some associated shortness of breath. Noted to have abnormal elevated LFT on admission. Surgery called to evaluate. Patient seen, patient roman, chart reviewed. Intermittent nausea but currently no emesis. Abdominal cramping. Reports tenderness to abdominal palpation history of umbilical hernia Allergies: Coded Allergies: No Known Allergies (Unverified , 08/31/14) Medication History Scheduled Apixaban (Eliquis), 5 MG PO BID Atorvastatin Calcium* (Lipitor*), Unknown Dose ORAL BEDTIME, (Reported) Clindamycin Hcl (Clindamycin Hcl), 300 MG ORAL THREE TIMES A DAY Metformin Hcl* (Metformin Hcl*), Unknown Dose ORAL DAILY, (Reported) Patient History History Provided By: Patient, Medical Record, PMD Healthcare decision maker Resuscitation status Full Code Advanced Directive on File Past Medical/Surgical History Past Medical/Surgical History: (1) Abdominal pain (2) Umbilical hernia (3) Cellulitis and abscess of leg (4) Cellulitis and abscess of leg (5) Strain of tibialis anterior muscle (6) Cellulitis (7) Elevated troponin (8) Edema (9) Constipation (10) Knee contusion (11) Contusion of right elbow (12) UTI (urinary tract infection) (13) Muscle strain (14) Sinusitis (15) DM2 (diabetes mellitus, type 2) (16) ACS (acute coronary syndrome) (17) Cellulitis of left lower extremity (18) Chest pain (19) Pedal edema (20) Hx of pulmonary embolus (21) Abdominal pain Review of Systems Review of Symptoms General ROS: no weight loss or fever Psychological ROS: no depression or mood changes, no memory loss Ophthalmic ROS: no visual changes or eye irritation ENT ROS: no nasal congestion, hearing loss, dizziness Allergy and Immunology ROS: no allergic symptoms or urticaria Hematological and Lymphatic ROS: no swollen glands, unusual bleeding or bruising Endocrine ROS: no polyuria, polydipsia, weight changes, temperature intolerance Respiratory ROS: no cough, shortness of breath, or wheezing Cardiovascular ROS: no chest pain or dyspnea on exertion Gastrointestinal ROS: abdominal pain, no bright red blood in stool. Musculoskeletal ROS: no myalgias or arthralgias Neurological ROS: no TIA or stroke symptoms Dermatological ROS: no new or changing skin lesions, rashes or pruritis Physical Exam Physical Exam General appearance: alert, cooperative, no distress, appears stated age Head: Normocephalic, without obvious abnormality, atraumatic Eyes: conjunctivae/corneas clear. PERRL, EOM's intact. Fundi benign Throat: Lips, mucosa, and tongue normal. Teeth and gums normal Neck: supple, symmetrical, trachea midline, no adenopathy, thyroid: not enlarged, symmetric, no tenderness/mass/nodules, no carotid bruit and no JVD Lungs: clear to auscultation bilaterally Heart: regular rate and rhythm, S1, S2 normal, no murmur, click, rub or gallop Abdomen: soft, non-tender but discomfort. Bowel sounds normal. No masses, no organomegaly Extremities: extremities normal, atraumatic, no cyanosis or edema Pulses: 2+ and symmetric Skin: Skin color, texture, turgor normal. No rashes or lesions Neurologic: Grossly normal Last 24 Hour Vital Signs Date Time Temp Pulse Resp B/P (MAP) Pulse Ox O2 Delivery O2 Flow Rate FiO2 09/17/18 11:31 Room Air 09/17/18 11:00 98.0 70 17 120/86 96 Room Air 09/17/18 10:55 98.0 70 17 120/86 96 Room Air 09/17/18 10:05 98.0 72 12 115/85 97 Room Air 09/17/18 08:55 74 18 122/100 95 Room Air 09/17/18 07:20 87 15 Room Air 09/17/18 07:20 98.1 87 15 153/75 94 Room Air 09/17/18 06:55 98.1 87 15 153/75 (101) 94 Room Air Laboratory Tests Test 09/17/18 07:10 09/17/18 08:34 White Blood Count 9.8 K/UL (4.8-10.8) Red Blood Count 4.61 M/UL (4.20-5.40) Hemoglobin 11.9 G/DL (12.0-16.0) L Hematocrit 38.5 % (37.0-47.0) Mean Corpuscular Volume 84 FL (80-99) Mean Corpuscular Hemoglobin 25.8 PG (27.0-31.0) L Mean Corpuscular Hemoglobin Concent 30.9 G/DL (32.0-36.0) L Red Cell Distribution Width 15.6 % (11.6-14.8) H Platelet Count 183 K/UL (150-450) Mean Platelet Volume 9.9 FL (6.5-10.1) Neutrophils (%) (Auto) 58.8 % (45.0-75.0) Lymphocytes (%) (Auto) 32.8 % (20.0-45.0) Monocytes (%) (Auto) 5.5 % (1.0-10.0) Eosinophils (%) (Auto) 2.1 % (0.0-3.0) Basophils (%) (Auto) 0.8 % (0.0-2.0) Activated Partial Thromboplast Time 22 SEC (23-33) L D-Dimer 1.53 mg/L FEU (0.00-0.49) H Sodium Level 136 MMOL/L (136-145) Potassium Level 4.0 MMOL/L (3.5-5.1) Chloride Level 100 MMOL/L (98-107) Carbon Dioxide Level 27 MMOL/L (21-32) Anion Gap 9 mmol/L (5-15) Blood Urea Nitrogen 11 mg/dL (7-18) Creatinine 1.1 MG/DL (0.55-1.30) Estimat Glomerular Filtration Rate > 60 mL/min (>60) Glucose Level 417 MG/DL (74-106) H Calcium Level 9.5 MG/DL (8.5-10.1) Total Bilirubin 0.2 MG/DL (0.2-1.0) Aspartate Amino Transf (AST/SGOT) 30 U/L (15-37) Alanine Aminotransferase (ALT/SGPT) 38 U/L (12-78) Alkaline Phosphatase 148 U/L (46-116) H Total Creatine Kinase 143 U/L (26-308) Creatine Kinase MB 0.5 NG/ML (0.0-3.6) Creatine Kinase MB Relative Index 0.3 Troponin I 0.015 ng/mL (0.000-0.056) Pro-B-Type Natriuretic Peptide 31 pg/mL (0-125) Total Protein 7.6 G/DL (6.4-8.2) Albumin 3.1 G/DL (3.4-5.0) L Globulin 4.5 g/dL Albumin/Globulin Ratio 0.7 (1.0-2.7) L Urine Opiates Screen Negative (NEGATIVE) Urine Barbiturates Screen Negative (NEGATIVE) Phencyclidine (PCP) Screen Negative (NEGATIVE) Urine Amphetamines Screen Negative (NEGATIVE) Urine Benzodiazepines Screen Negative (NEGATIVE) Urine Cocaine Screen Negative (NEGATIVE) Urine Marijuana (THC) Screen Negative (NEGATIVE) Height (Feet): 5 Height (Inches): 3.00 Weight (Pounds): 349 Medications Current Medications Medications (Trade) Dose Ordered Sig/Milo Route PRN Reason Start Time Stop Time Status Last Admin Dose Admin Acetaminophen (Tylenol) 650 mg Q4H PRN ORAL Mild Pain (Pain Scale 1-3) 09/17/18 10:00 10/17/18 09:59 Acetaminophen/ Hydrocodone Bitart ([place] 5/325) 1 tab Q4H PRN ORAL Moderate Pain (Pain Scale 4-6) 09/17/18 10:00 09/24/18 09:59 Acetaminophen/ Hydrocodone Bitart ([place] 5/325) 2 tab Q4H PRN ORAL Severe Pain (Pain Scale 7-10) 09/17/18 10:00 09/24/18 09:59 Albuterol/ Ipratropium (Albuterol/ Ipratropium) 3 ml Q6H PRN HHN Shortness of Breath 09/17/18 10:00 09/22/18 09:59 Atorvastatin Calcium (Lipitor) 20 mg BEDTIME ORAL 09/17/18 21:00 10/17/18 20:59 Bisacodyl (Dulcolax) 10 mg DAILYPRN PRN RECTAL Constipation 09/17/18 10:00 10/17/18 09:59 Dextrose (Dextrose 50%) 25 ml Q30M PRN IV Hypoglycemia 09/17/18 10:00 10/17/18 09:59 Dextrose (Dextrose 50%) 50 ml Q30M PRN IV Hypoglycemia 09/17/18 10:00 10/17/18 09:59 Diphenhydramine HCl (Benadryl) 25 mg Q6H PRN ORAL Itching/Pruritis 09/17/18 10:00 10/17/18 09:59 Heparin Sodium/ Dextrose 500 ml @ 44.325 mls/ hr ADJUST PER PROTOCOL IV 09/17/18 11:30 10/17/18 11:29 09/17/18 11:28 Lorazepam (Ativan 2mg/ml 1ml) 0.5 mg Q4H PRN IV For Anxiety 09/17/18 10:00 09/24/18 09:59 Magnesium Hydroxide (Mom) 30 ml HSPRN PRN ORAL Constipation 09/17/18 10:00 10/17/18 09:59 Ondansetron HCl (Zofran) 4 mg Q6H PRN IVP Nausea & Vomiting 09/17/18 10:00 10/17/18 09:59 Regadenoson (Lexiscan) 0.4 mg ONCE PRN IV STRESS TEST 09/18/18 08:00 09/18/18 23:59 Sodium Chloride 1,000 ml @ 75 mls/hr [id number] 09/17/18 10:45 10/17/18 10:44 Temazepam (Restoril) 15 mg HSPRN PRN ORAL Insomnia 09/17/18 10:00 09/24/18 09:59 Assessment/Plan Problem List: (1) Abdominal pain Assessment & Plan: 47-year-old female who presented with chest discomfort, shortness of breath, history of DVT on Eliquis, recent lower extremity edema, abdominal discomfort. Abnormal LFTs. On examination patient complaining of discomfort in the lower portions of her abdomen. She is fairly obese and unfortunately from my understanding cannot have a CT scan at this time. Abdominal examination does not elicit any peritonitis, significant tenderness, rebound, guarding. She has a known history of hernia which is reducible. No acute general surgery intervention recommended. Okay for diet from surgical standpoint. Appreciate heme and cardio input. Trend labs. Abdominal ultrasound ordered. Thank you for allowing me to participate in patient's care. We will continue with recommendations ICD Codes: R10.9 - Unspecified abdominal pain SNOMED: [id number] (2) Umbilical hernia Assessment & Plan: Historic ventral hernia. Nonobstructive. Abdominal exam does not elicit would be believe to be an obstruction. Patient passing flatus and just had a bowel movement. No nausea or vomiting. No acute surgical intervention recommended for patient's hernia. Will recommend elective outpatient follow-up for hernia repair. ICD Codes: K42.9 - Umbilical hernia without obstruction or gangrene SNOMED: [id number] Vincenzo Jarvis Sep 17, 2018 13:06
[2018-09-17] MEDS ORDERED: Heparin 5000 units/ml inj IV SCH (14:42)
[2018-09-17] MEDS: Heparin 25,000u/D5W 500ml 500 ML IV SCH ×2 (15:02→19:15)
--- NOTE | 2018-09-17 15:11 | Pulmonology Progress Note ---
Assessment/Plan Assessment/Plan Pulmonary Consultation HPI Patient is a 47-year-old female who presented with chest discomfort, reporting sharp pain to the center of her chest. She had sudden onset of symptoms approximate 1 hour before presentation to the ED. She reports having prior history of pulmonary embolism and states that she had previously been on Eliquis. which was discontinued approximately 1 week ago. She has had persistent leg swelling for several weeks. C/o associated shortness of breath. She denies any fever. She denies any prior cardiac condition. She denies being a smoker. She does not take oral contraceptives. 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 2017, Type 2 Diabetes, Hyperlipidemia, Obesity, Bulging disc s/p fall 2009, Epigastric Hernia All Other Systems: negative except mentioned in HPI Physical Exam Vital Signs Noted Date Time Temp Pulse Resp B/P (MAP) Pulse Ox O2 Delivery O2 Flow Rate FiO2 09/17/18 06:55 98.1 87 15 94 Room Air General Appearance: normal inspection, alert, obese Head: atraumatic ENT: normal ENT inspection, hearing grossly normal, normal voice Neck: normal inspection, full range of motion, supple, no bony tend Respiratory: normal inspection, lungs clear, normal breath sounds, no respiratory distress, no retraction, no wheezing Cardiovascular regular rate, rhythm, HS1/HS2 normal, moderate peripheral edema Gastrointestinal: normal inspection, normal bowel sounds, non tender, soft, no guarding, no hernia Genitourinary: no CVA tenderness Musculoskeletal: normal inspection, back normal, normal range of motion, moderate edema Neurologic: normal inspection, alert, oriented x3, responsive, freight engineer III-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 as tested, speech normal Impression: Chest pain History of pulmonary embolus/DVT 2018 Pedal edema Type 2 Diabetes Hyperlipidemia Obesity Bulging disc s/p fall 2009 Epigastric Hernia Plan Admit Monitore bed Patient too large for CT scanner VQ scan LE dupplex IV heparin gtt per pharmacy then NOAC R/o ACS Echocardiogram Diuresis PRN O2 PRN Labs Test 09/17/18 07:10 09/17/18 08:34 White Blood Count 9.8 K/UL (4.8-10.8) Red Blood Count 4.61 M/UL (4.20-5.40) Hemoglobin 11.9 G/DL (12.0-16.0) Hematocrit 38.5 % (37.0-47.0) Mean Corpuscular Volume 84 FL (80-99) Mean Corpuscular Hemoglobin 25.8 PG (27.0-31.0) Mean Corpuscular Hemoglobin Concent 30.9 G/DL (32.0-36.0) Red Cell Distribution Width 15.6 % (11.6-14.8) Platelet Count 183 K/UL (150-450) Mean Platelet Volume 9.9 FL (6.5-10.1) Neutrophils (%) (Auto) 58.8 % (45.0-75.0) Lymphocytes (%) (Auto) 32.8 % (20.0-45.0) Monocytes (%) (Auto) 5.5 % (1.0-10.0) Eosinophils (%) (Auto) 2.1 % (0.0-3.0) Basophils (%) (Auto) 0.8 % (0.0-2.0) Activated Partial Thromboplast Time 22 SEC (23-33) D-Dimer 1.53 mg/L FEU (0.00-0.49) Sodium Level 136 MMOL/L (136-145) Potassium Level 4.0 MMOL/L (3.5-5.1) Chloride Level 100 MMOL/L (98-107) Carbon Dioxide Level 27 MMOL/L (21-32) Anion Gap 9 mmol/L (5-15) Blood Urea Nitrogen 11 mg/dL (7-18) Creatinine 1.1 MG/DL (0.55-1.30) Estimat Glomerular Filtration Rate > 60 mL/min (>60) Glucose Level 417 MG/DL (74-106) Calcium Level 9.5 MG/DL (8.5-10.1) Total Bilirubin 0.2 MG/DL (0.2-1.0) Aspartate Amino Transf (AST/SGOT) 30 U/L (15-37) Alanine Aminotransferase (ALT/SGPT) 38 U/L (12-78) Alkaline Phosphatase 148 U/L (46-116) Total Creatine Kinase 143 U/L (26-308) Creatine Kinase MB 0.5 NG/ML (0.0-3.6) Creatine Kinase MB Relative Index 0.3 Troponin I 0.015 ng/mL (0.000-0.056) Pro-B-Type Natriuretic Peptide 31 pg/mL (0-125) Total Protein 7.6 G/DL (6.4-8.2) Albumin 3.1 G/DL (3.4-5.0) Globulin 4.5 g/dL Albumin/Globulin Ratio 0.7 (1.0-2.7) Urine Opiates Screen Negative (NEGATIVE) Urine Barbiturates Screen Negative (NEGATIVE) Phencyclidine (PCP) Screen Negative (NEGATIVE) Urine Amphetamines Screen Negative (NEGATIVE) Urine Benzodiazepines Screen Negative (NEGATIVE) Urine Cocaine Screen Negative (NEGATIVE) Urine Marijuana (THC) Screen Negative (NEGATIVE) EKG: Rate: normal Rhythm: NSR ST Segments: no acute changes CXR: No acute cardiopulmonary disease Subjective ROS Limited/Unobtainable: No Allergies: Coded Allergies: No Known Allergies (Unverified , 08/31/14) Objective Last 24 Hour Vital Signs Date Time Temp Pulse Resp B/P (MAP) Pulse Ox O2 Delivery O2 Flow Rate FiO2 09/17/18 12:00 70 09/17/18 12:00 96.6 63 20 149/67 (94) 98 09/17/18 11:31 Room Air 09/17/18 11:00 98.0 70 17 120/86 96 Room Air 09/17/18 10:55 98.0 70 17 120/86 96 Room Air 09/17/18 10:05 98.0 72 12 115/85 97 Room Air 09/17/18 08:55 74 18 122/100 95 Room Air 09/17/18 07:20 87 15 Room Air 09/17/18 07:20 98.1 87 15 153/75 94 Room Air 09/17/18 06:55 98.1 87 15 153/75 (101) 94 Room Air Laboratory Tests 09/17/18 07:10: White Blood Count 9.8, Red Blood Count 4.61, Hemoglobin 11.9L, Hematocrit 38.5, Mean Corpuscular Volume 84, Mean Corpuscular Hemoglobin 25.8L, Mean Corpuscular Hemoglobin Concent 30.9L, Red Cell Distribution Width 15.6H, Platelet Count 183 , Mean Platelet Volume 9.9, Neutrophils (%) (Auto) 58.8, Lymphocytes (%) (Auto) 32.8, Monocytes (%) (Auto) 5.5, Eosinophils (%) (Auto) 2.1, Basophils (%) (Auto ) 0.8, Activated Partial Thromboplast Time 22L, D-Dimer 1.53H, Sodium Level 136 , Potassium Level 4.0, Chloride Level 100, Carbon Dioxide Level 27, Anion Gap 9 , Blood Urea Nitrogen 11, Creatinine 1.1, Estimat Glomerular Filtration Rate > 60, Glucose Level 417H, Calcium Level 9.5, Total Bilirubin 0.2, Aspartate Amino Transf (AST/SGOT) 30, Alanine Aminotransferase (ALT/SGPT) 38, Alkaline Phosphatase 148H, Total Creatine Kinase 143, Creatine Kinase MB 0.5, Creatine Kinase MB Relative Index 0.3, Troponin I 0.015, Pro-B-Type Natriuretic Peptide 31, Total Protein 7.6, Albumin 3.1L, Globulin 4.5, Albumin/Globulin Ratio 0.7L 09/17/18 08:34: Urine Opiates Screen Negative, Urine Barbiturates Screen Negative, Phencyclidine (PCP) Screen Negative, Urine Amphetamines Screen Negative, Urine Benzodiazepines Screen Negative, Urine Cocaine Screen Negative, Urine Marijuana (THC) Screen Negative 09/17/18 14:20: Activated Partial Thromboplast Time 46H, Troponin I 0.000 Current Medications Medications (Trade) Dose Ordered Sig/Milo Route PRN Reason Start Time Stop Time Status Last Admin Dose Admin Acetaminophen (Tylenol) 650 mg Q4H PRN ORAL Mild Pain (Pain Scale 1-3) 09/17/18 10:00 10/17/18 09:59 Acetaminophen/ Hydrocodone Bitart ([place] 5/325) 1 tab Q4H PRN ORAL Moderate Pain (Pain Scale 4-6) 09/17/18 10:00 09/24/18 09:59 Acetaminophen/ Hydrocodone Bitart ([place] 5/325) 2 tab Q4H PRN ORAL Severe Pain (Pain Scale 7-10) 09/17/18 10:00 09/24/18 09:59 Albuterol/ Ipratropium (Albuterol/ Ipratropium) 3 ml Q6H PRN HHN Shortness of Breath 09/17/18 10:00 09/22/18 09:59 Atorvastatin Calcium (Lipitor) 20 mg BEDTIME ORAL 09/17/18 21:00 10/17/18 20:59 Bisacodyl (Dulcolax) 10 mg DAILYPRN PRN RECTAL Constipation 09/17/18 10:00 10/17/18 09:59 Dextrose (Dextrose 50%) 25 ml Q30M PRN IV Hypoglycemia 09/17/18 10:00 10/17/18 09:59 Dextrose (Dextrose 50%) 50 ml Q30M PRN IV Hypoglycemia 09/17/18 10:00 10/17/18 09:59 Diphenhydramine HCl (Benadryl) 25 mg Q6H PRN ORAL Itching/Pruritis 09/17/18 10:00 10/17/18 09:59 Heparin Sodium (Porcine) (Heparin 5000 units/ml) 12,000 units ONCE IV 09/17/18 14:42 09/17/18 16:00 Heparin Sodium/ Dextrose 500 ml @ 56.989 mls/ hr ADJUST PER PROTOCOL IV 09/17/18 14:43 10/17/18 14:42 Lorazepam (Ativan 2mg/ml 1ml) 0.5 mg Q4H PRN IV For Anxiety 09/17/18 10:00 09/24/18 09:59 Magnesium Hydroxide (Mom) 30 ml HSPRN PRN ORAL Constipation 09/17/18 10:00 10/17/18 09:59 Ondansetron HCl (Zofran) 4 mg Q6H PRN IVP Nausea & Vomiting 09/17/18 10:00 10/17/18 09:59 Regadenoson (Lexiscan) 0.4 mg ONCE PRN IV STRESS TEST 09/18/18 08:00 09/18/18 23:59 Sodium Chloride 1,000 ml @ 75 mls/hr [id number] IVLG 09/17/18 10:45 10/17/18 10:44 Temazepam (Restoril) 15 mg HSPRN PRN ORAL Insomnia 09/17/18 10:00 09/24/18 09:59 Sebastien Thao MD Sep 17, 2018 15:11
--- NOTE | 2018-09-17 16:22 | NUR ---
CASE MANAGEMENT: INITIAL REVIEW 47 YO F PRESENTED TO OUR ED FROM HOME CC: SOB PMHx: PE. DVT. DM. SI:ACS. CP. T 98.1 HR 87 RR 15 SATS 94% ON RA GLU 417 ALP 148 IS: ASA PO X1 LASIX IV X1 HEPARIN DRIP PER PARAMETERS 2DECHO 55-60% PATIENT ADMITTED TO SDU 09/17/2018 @ 0813 DCP: PATIENT TO BE DISCHARGED TO HOME ONCE MEDICALLY CLEARED. PLAN OF CARE: SSW CONSULT CARDIO EVAL VQ SCAN STRESS TEST W/ MEDS Addendum: 09/17/18 at 1856 by Isabel Mina CM [facility] AMAYA
--- NOTE | 2018-09-17 19:15 | NUR ---
NURSE NOTES: Received patient from MARTY Saleh. patient is sitting at edge of bed, AOX4. denies pain at this time. patient is on room air, no s/sx of respiratory distress noted at this time. LAC 20 g patent and intact, running heparin drip at prescribed rate; tolerating well, no s/sx of active bleeding noted at this time. RH 24 g is patent and intact, asymptomatic. bed in lowest position and locked, siderails up X2, call light within reach. will continue to monitor.
--- NOTE | 2018-09-17 19:30 | NUR ---
NURSE NOTES: patient is off tele unit for VQ scan.
--- NOTE | 2018-09-17 19:34 | NUR ---
HAND-OFF: Report given to Aylin FERGUSON. Pt. remain stable. Pt. on heparin drip no s/sx of bleeding.
--- NOTE | 2018-09-17 20:45 | Consultation ---
DATE OF CONSULTATION: 09/17/2018 CARDIOLOGY CONSULTATION CONSULTING PHYSICIAN: Paulino Mcfarland M.D. REFERRING PHYSICIAN: Esme Wu M.D. ADDITIONAL REFERRING PHYSICIAN: Dr. Rosales. REASON FOR CONSULTATION: Chest pain. HISTORY OF PRESENT ILLNESS: The patient is a 47-year-old lady with history of hypertension, history of DVT and pulmonary embolism that was diagnosed in May 2017, hyperlipidemia, type 2 diabetes, and obesity, who presented to the emergency room for chest pain. The patient apparently has been on Eliquis, but there was some problem with her insurance and the medication was discontinued about a week ago. The patient also has had increased leg swelling for several weeks. The patient also has shortness of breath, but denies any fever, nausea, vomiting, or diaphoresis. The patient was admitted and a Cardiology consultation was obtained for further evaluation. REVIEW OF SYSTEMS: Negative other than what was mentioned in the history of present illness. PAST MEDICAL HISTORY: As mentioned above. FAMILY HISTORY: Noncontributory. SOCIAL HISTORY: She lives at home. 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 Does not smoke or drink alcohol. PHYSICAL EXAMINATION: VITAL SIGNS: Show blood pressure of 112/86, pulse 70, respirations 18, and she is afebrile. Initial blood pressure was 153/75. HEAD AND NECK: No JVD. LUNGS: Clear. CARDIOVASCULAR: Regular S1 and S2 with no gallop or murmur. ABDOMEN: Soft. EXTREMITIES: Show bilateral 1+ pitting edema. LABORATORY AND DIAGNOSTIC DATA: Show white count of 9.8, hemoglobin 11.9, hematocrit of 38.5, platelet count of 183,000. Sodium 132, potassium 4.0, BUN of 11, creatinine 1.1, glucose of 417. Troponin is negative. Urine toxicology is negative. Chest x-ray showed no acute cardiopulmonary process. ASSESSMENT AND PLAN: 1. Atypical chest pain. First troponin is negative. EKG is nonischemic. We will completely rule out OK protocol, repeat EKG and echocardiogram for further evaluation. I will schedule the patient for stress test in the morning. 2. History of DVT and pulmonary embolism in May 2017. The patient has been on Eliquis for more than a year. Lower extremity duplex is pending. The patient may benefit from repeat chest CT or V/Q scan to make sure chest pain is not because of recurrence of PE. The patient will be started on heparin drip at this time. The patient's morbid obesity prevents her from getting chest CT, but she may benefit from V/Q scan. 3. Hyperlipidemia, on Lipitor. 4. Morbid obesity. 5. History of hypertension. Initially, her blood pressure was high and currently stable. Add on p.r.n. blood pressure medication. Her BNP also is only 31 making congestive heart failure unlikely. 6. Uncontrolled diabetes with glucose of 417. Thank you very much for allowing me to participate in the care of this patient. Please do not hesitate to contact me for any questions regarding my evaluation. Paulino Mcfarland M.D. DR: Yuko JOB#: [id number] CC:
--- NOTE | 2018-09-17 20:50 | NUR ---
NURSE NOTES: patient returned from procedure, placed on allied health teacher. patient is in stable condition. will continue to monitor.
[2018-09-17 21:00] VITALS: BP 158/80
[2018-09-17] MEDS: Atorvastatin 20mg tab ORAL SCH (21:37)
--- NOTE | 2018-09-17 22:15 | NUR ---
NURSE NOTES: Received call from Pia from [facility] regarding patient's PTT result. per protocol, no changes in rate. scheduled PTT lab for AM draw. patient shows no s/sx of active bleeding at this time. will continue to monitor.
--- NOTE | 2018-09-17 22:47 | Neurology Progress Note ---
Interim History Interim History ROS Limited/Unobtainable: No Interim History 47-year-old female who presented after increased chest discomfort. Patient reports having sharp pain to the center of her chest. She reports having prior history of pulmonary embolism and states that she had previously been on Eliquis. She discontinued medication approximately 1 week ago. Pt reports intermittent vertigo, worse with head movement.Unstable walking Review of Systems All Systems: reviewed and negative except above - 47-year-old female who presented after increased chest discomfort. Patient reports having sharp pain to the center of her chest. She reports having prior history of pulmonary embolism and states that she had previously been on Eliquis. She discontinued medication approximately 1 week ago. Patient had been having persistent leg swelling for several weeks. She reports having some associated shortness of breath. Noted to have abnormal elevated LFT on admission. Surgery called to evaluate. Patient seen, patient roman, chart reviewed. Intermittent nausea but currently no emesis. Abdominal cramping. Reports tenderness to abdominal palpation history of umbilical hernia Objective Physical Exam Last Vital Signs Date Time Temp Pulse Resp B/P (MAP) Pulse Ox O2 Delivery O2 Flow Rate FiO2 09/17/18 19:00 84 09/17/18 12:00 96.6 20 149/67 (94) 98 09/17/18 11:31 Room Air Laboratory Tests Test 09/17/18 07:10 09/17/18 08:34 09/17/18 14:20 09/17/18 21:15 White Blood Count 9.8 K/UL (4.8-10.8) Red Blood Count 4.61 M/UL (4.20-5.40) Hemoglobin 11.9 G/DL (12.0-16.0) L Hematocrit 38.5 % (37.0-47.0) Mean Corpuscular Volume 84 FL (80-99) Mean Corpuscular Hemoglobin 25.8 PG (27.0-31.0) L Mean Corpuscular Hemoglobin Concent 30.9 G/DL (32.0-36.0) L Red Cell Distribution Width 15.6 % (11.6-14.8) H Platelet Count 183 K/UL (150-450) Mean Platelet Volume 9.9 FL (6.5-10.1) Neutrophils (%) (Auto) 58.8 % (45.0-75.0) Lymphocytes (%) (Auto) 32.8 % (20.0-45.0) Monocytes (%) (Auto) 5.5 % (1.0-10.0) Eosinophils (%) (Auto) 2.1 % (0.0-3.0) Basophils (%) (Auto) 0.8 % (0.0-2.0) Activated Partial Thromboplast Time 22 SEC (23-33) L 46 SEC (23-33) H 79 SEC (23-33) H D-Dimer 1.53 mg/L FEU (0.00-0.49) H Sodium Level 136 MMOL/L (136-145) Potassium Level 4.0 MMOL/L (3.5-5.1) Chloride Level 100 MMOL/L (98-107) Carbon Dioxide Level 27 MMOL/L (21-32) Anion Gap 9 mmol/L (5-15) Blood Urea Nitrogen 11 mg/dL (7-18) Creatinine 1.1 MG/DL (0.55-1.30) Estimat Glomerular Filtration Rate > 60 mL/min (>60) Glucose Level 417 MG/DL (74-106) H Calcium Level 9.5 MG/DL (8.5-10.1) Total Bilirubin 0.2 MG/DL (0.2-1.0) Aspartate Amino Transf (AST/SGOT) 30 U/L (15-37) Alanine Aminotransferase (ALT/SGPT) 38 U/L (12-78) Alkaline Phosphatase 148 U/L (46-116) H Total Creatine Kinase 143 U/L (26-308) Creatine Kinase MB 0.5 NG/ML (0.0-3.6) Creatine Kinase MB Relative Index 0.3 Troponin I 0.015 ng/mL (0.000-0.056) 0.000 ng/mL (0.000-0.056) 0.018 ng/mL (0.000-0.056) Pro-B-Type Natriuretic Peptide 31 pg/mL (0-125) Total Protein 7.6 G/DL (6.4-8.2) Albumin 3.1 G/DL (3.4-5.0) L Globulin 4.5 g/dL Albumin/Globulin Ratio 0.7 (1.0-2.7) L Urine Opiates Screen Negative (NEGATIVE) Urine Barbiturates Screen Negative (NEGATIVE) Phencyclidine (PCP) Screen Negative (NEGATIVE) Urine Amphetamines Screen Negative (NEGATIVE) Urine Benzodiazepines Screen Negative (NEGATIVE) Urine Cocaine Screen Negative (NEGATIVE) Urine Marijuana (THC) Screen Negative (NEGATIVE) General: well developed, well nourished Neurologic Exam Mental Status: awake, alert, oriented x4, normal cognition, good mathematical skills, normal recent memory, normal remote memory, preserved visuospatial function Speech: normal speech, no dysarthia Cranial Nerve II: fundus normal, visual wells, no papilledema Cranial Nerves III, IV, : PERRLA, EOMI, pupils Cranial Nerve V: normal facial sensations, temporales function normal, masseters function normal, pterygoids function normal Cranial Nerve VII: no facial asymmetry, normal facial expressions Cranial Nerve VIII: normal hearing, no nystagmus Cranial Nerve IX: normal palate elevation, gag response Motor System: normal muscle tone, strength 5/5, no involuntary movement, no muscle wasting Objective ataxic Impression/Recommendations Problems: (1) Chest pain (2) Pedal edema (3) Hx of pulmonary embolus (4) Umbilical hernia (5) Abdominal pain (6) Abdominal pain (7) Constipation (8) Muscle strain (9) Cellulitis (10) Edema (11) Sinusitis (12) UTI (urinary tract infection) (13) Cellulitis and abscess of leg (14) Cellulitis and abscess of leg (15) ACS (acute coronary syndrome) (16) Elevated troponin (17) Knee contusion (18) Contusion of right elbow (19) Strain of tibialis anterior muscle (20) Cellulitis of left lower extremity (21) DM2 (diabetes mellitus, type 2) Diagnostic Impression Vertigo likely peripheral rule out infectious metabolic ok to cont anticoagulation No need for brain imagin pt ot Ismael Lopez MD Sep 17, 2018 22:47
[2018-09-18] VITALS: BP 128/90
[2018-09-18 04:00] VITALS: BP 133/90
[2018-09-18] MEDS: Heparin 25,000u/D5W 500ml 500 ML IV SCH ×3 (04:16→14:57)
[2018-09-18 05:19] LABS: BASOPHILS % (AUTO) 0.6 % (0.0-2.0); EOSINOPHILS % (AUTO) 2.4 % (0.0-3.0); HEMATOCRIT 37.7 % (37.0-47.0); HEMOGLOBIN 11.5 G/DL (12.0-16.0); LYMPHOCYTES % (AUTO) 40.2 % (20.0-45.0); MEAN CORPUSCULAR VOLUME 84 FL (80-99); MONOCYTES % (AUTO) 6.4 % (1.0-10.0); NEUTROPHILS % (AUTO) 50.3 % (45.0-75.0); PLATELET COUNT 166 K/UL (150-450); RED BLOOD COUNT 4.51 M/UL (4.20-5.40); RED CELL DISTRIBUTION WIDTH 15.4 % (11.6-14.8); WHITE BLOOD COUNT 7.9 K/UL (4.8-10.8)
[2018-09-18 05:55] LABS: ANION GAP 11 mmol/L (5-15); BLOOD UREA NITROGEN 9 mg/dL (7-18); CALCIUM 9.1 MG/DL (8.5-10.1); CARBON DIOXIDE 26 MMOL/L (21-32); CHLORIDE 99 MMOL/L (98-107); CREATININE 0.9 MG/DL (0.55-1.30); POTASSIUM 3.9 MMOL/L (3.5-5.1); SODIUM 136 MMOL/L (136-145)
--- NOTE | 2018-09-18 06:20 | NUR ---
NURSE NOTES: patient's current PTT level is 97. spoke with Jolanta from [employer] and ordered to decrease rate as per protocol. also ordered repeat PTT per Jolanta from [employer]. will inform .
--- NOTE | 2018-09-18 06:29 | NUR ---
NURSE NOTES: left message for Dr. Cali regarding patient's magnesium level and informed her of PTT level. awaiting call back.
[2018-09-18] MEDS ORDERED: Heparin 25,000u/D5W 500ml 500 ML IV SCH (06:30)
--- NOTE | 2018-09-18 07:15 | NUR ---
NURSE NOTES: received call back from Dr. Cali regarding magnesium levels. will carry out orders.
--- NOTE | 2018-09-18 07:25 | NUR ---
HAND-OFF: Report given to MARTY Saleh. patient is in stable condition. endorsed to day nurse to carry out orders per MD regarding magnesium level.
--- NOTE | 2018-09-18 07:30 | NUR ---
NURSE NOTES: Received bedside report from Aylin FERGUSON. Pt. in bed, asleep but arousable. No sign of distress noted. No grimacing noted. On Heparin drip at 16u/kg/hr. No s/sx of bleeding noted. IV site at left AC #20g. in placed patent/intact. Next PTT on 1300. Pt. NPO at present due to US abd. and Lexiscan. Will cont. to monitor.
--- NOTE | 2018-09-18 07:30 | NUR ---
NURSE NOTES: Called Dr. Cali regarding Mg of 1.5 level and ordered for Mg 2gm to start at 1300. Will cont. to monitor
[2018-09-18 08:00] VITALS: BP 157/76
[2018-09-18] MEDS ORDERED: Lexiscan 0.4mg/5ml syringe IV PRN (08:00)
--- NOTE | 2018-09-18 09:01 | Consultation ---
History of Present Illness General Chief Complaint: Chest Pain Present Illness Allergies: Coded Allergies: No Known Allergies (Unverified , 08/31/14) Medication History Scheduled Apixaban (Eliquis), 5 MG PO BID Atorvastatin Calcium* (Lipitor*), Unknown Dose ORAL BEDTIME, (Reported) Clindamycin Hcl (Clindamycin Hcl), 300 MG ORAL THREE TIMES A DAY Metformin Hcl* (Metformin Hcl*), Unknown Dose ORAL DAILY, (Reported) Patient History Healthcare decision maker Resuscitation status Full Code Advanced Directive on File Physical Exam Last 24 Hour Vital Signs Date Time Temp Pulse Resp B/P (MAP) Pulse Ox O2 Delivery O2 Flow Rate FiO2 09/18/18 08:00 98.5 70 28 157/76 (103) 96 09/18/18 04:00 97.2 72 20 133/90 (104) 96 09/18/18 03:34 76 09/18/18 00:00 98.1 70 22 128/90 (103) 97 09/17/18 23:24 70 09/17/18 21:00 97.9 78 22 158/80 (106) 98 09/17/18 21:00 76 18 97 Room Air 21 09/17/18 20:00 Room Air 09/17/18 19:00 84 09/17/18 15:15 73 09/17/18 12:00 70 09/17/18 12:00 96.6 63 20 149/67 (94) 98 09/17/18 11:31 Room Air 09/17/18 11:00 98.0 70 17 120/86 96 Room Air 09/17/18 10:55 98.0 70 17 120/86 96 Room Air 09/17/18 10:05 98.0 72 12 115/85 97 Room Air Intake and Output 09/17/18 09/18/18 19:00 07:00 Intake Total 650 ml 1238.117 ml Balance 650 ml 1238.117 ml Intake Oral 550 ml 350 ml IV Total 100 ml 888.117 ml # Voids 7 2 Laboratory Tests Test 09/17/18 14:20 09/17/18 21:15 09/18/18 03:45 Activated Partial Thromboplast Time 46 SEC (23-33) H 79 SEC (23-33) H 97 SEC (23-33) H Troponin I 0.000 ng/mL (0.000-0.056) 0.018 ng/mL (0.000-0.056) 0.012 ng/mL (0.000-0.056) White Blood Count 7.9 K/UL (4.8-10.8) Red Blood Count 4.51 M/UL (4.20-5.40) Hemoglobin 11.5 G/DL (12.0-16.0) L Hematocrit 37.7 % (37.0-47.0) Mean Corpuscular Volume 84 FL (80-99) Mean Corpuscular Hemoglobin 25.6 PG (27.0-31.0) L Mean Corpuscular Hemoglobin Concent 30.6 G/DL (32.0-36.0) L Red Cell Distribution Width 15.4 % (11.6-14.8) H Platelet Count 166 K/UL (150-450) Mean Platelet Volume 11.1 FL (6.5-10.1) H Neutrophils (%) (Auto) 50.3 % (45.0-75.0) Lymphocytes (%) (Auto) 40.2 % (20.0-45.0) Monocytes (%) (Auto) 6.4 % (1.0-10.0) Eosinophils (%) (Auto) 2.4 % (0.0-3.0) Basophils (%) (Auto) 0.6 % (0.0-2.0) Sodium Level 136 MMOL/L (136-145) Potassium Level 3.9 MMOL/L (3.5-5.1) Chloride Level 99 MMOL/L (98-107) Carbon Dioxide Level 26 MMOL/L (21-32) Anion Gap 11 mmol/L (5-15) Blood Urea Nitrogen 9 mg/dL (7-18) Creatinine 0.9 MG/DL (0.55-1.30) Estimat Glomerular Filtration Rate > 60 mL/min (>60) Glucose Level 255 MG/DL (74-106) #H Calcium Level 9.1 MG/DL (8.5-10.1) Magnesium Level 1.5 MG/DL (1.8-2.4) L Height (Feet): 5 Height (Inches): 3.00 Weight (Pounds): 349 Medications Current Medications Medications (Trade) Dose Ordered Sig/Milo Route PRN Reason Start Time Stop Time Status Last Admin Dose Admin Acetaminophen (Tylenol) 650 mg Q4H PRN ORAL Mild Pain (Pain Scale 1-3) 09/17/18 10:00 10/17/18 09:59 Acetaminophen/ Hydrocodone Bitart ([place] 5/325) 1 tab Q4H PRN ORAL Moderate Pain (Pain Scale 4-6) 09/17/18 10:00 09/24/18 09:59 Acetaminophen/ Hydrocodone Bitart ([place] 5/325) 2 tab Q4H PRN ORAL Severe Pain (Pain Scale 7-10) 09/17/18 10:00 09/24/18 09:59 09/17/18 21:40 Albuterol/ Ipratropium (Albuterol/ Ipratropium) 3 ml Q6H PRN HHN Shortness of Breath 09/17/18 10:00 09/22/18 09:59 Atorvastatin Calcium (Lipitor) 20 mg BEDTIME ORAL 09/17/18 21:00 10/17/18 20:59 09/17/18 21:37 Bisacodyl (Dulcolax) 10 mg DAILYPRN PRN RECTAL Constipation 09/17/18 10:00 10/17/18 09:59 Dextrose (Dextrose 50%) 25 ml Q30M PRN IV Hypoglycemia 09/17/18 10:00 10/17/18 09:59 Dextrose (Dextrose 50%) 50 ml Q30M PRN IV Hypoglycemia 09/17/18 10:00 10/17/18 09:59 Diphenhydramine HCl (Benadryl) 25 mg Q6H PRN ORAL Itching/Pruritis 09/17/18 10:00 10/17/18 09:59 Heparin Sodium/ Dextrose 500 ml @ 50.657 mls/ hr ADJUST PER PROTOCOL IV 09/18/18 07:00 10/18/18 06:29 09/18/18 07:05 Lorazepam (Ativan 2mg/ml 1ml) 0.5 mg Q4H PRN IV For Anxiety 09/17/18 10:00 09/24/18 09:59 Magnesium Hydroxide (Mom) 30 ml HSPRN PRN ORAL Constipation 09/17/18 10:00 10/17/18 09:59 Magnesium Sulfate 100 ml @ 100 mls/hr Q1H IVPB 09/18/18 13:00 09/18/18 14:59 Ondansetron HCl (Zofran) 4 mg Q6H PRN IVP Nausea & Vomiting 09/17/18 10:00 10/17/18 09:59 Regadenoson (Lexiscan) 0.4 mg ONCE PRN IV STRESS TEST 09/18/18 08:00 09/18/18 23:59 Sodium Chloride 1,000 ml @ 75 mls/hr [id number] IVLG 09/17/18 10:45 10/17/18 10:44 09/18/18 00:02 Temazepam (Restoril) 15 mg HSPRN PRN ORAL Insomnia 09/17/18 10:00 09/24/18 09:59 Assessment/Plan Assessment/Plan: Hematology Consult REQ MD: Nighat Cali Date patient seen: Sep 17, 2018 Reason for Hospitalization: Chest Pain RFC: PE/DVT off anticoag ID 47-year-old female well known to me from prior 2018 admission, who presented after increased chest discomfort. Patient reports having sharp pain to the center of her chest. She reports having prior history of pulmonary embolism and states that she had previously been on Eliquis. She discontinued medication approximately 1 week ago. Patient had been having persistent leg swelling for several weeks. She reports having some associated shortness of breath. Noted to have abnormal elevated LFT on admission. Surgery called to evaluate. Patient seen, patient roman, chart reviewed. Intermittent nausea but currently no emesis. Abdominal cramping. Reports tenderness to abdominal palpation history of umbilical hernia. Allergies: No Known Allergies (Unverified , 08/31/14) Medications Scheduled Apixaban (Eliquis), 5 MG PO BID Atorvastatin Calcium* (Lipitor*), Unknown Dose ORAL BEDTIME, (Reported) Clindamycin Hcl (Clindamycin Hcl), 300 MG ORAL THREE TIMES A DAY Metformin Hcl* (Metformin Hcl*), Unknown Dose ORAL DAILY, (Reported) Patient History History Provided By: Patient, Medical Record, PMD Healthcare decision maker Resuscitation status Full Code Advanced Directive on File Past Medical/Surgical History: (1) Abdominal pain (2) Umbilical hernia (3) Cellulitis and abscess of leg (4) Cellulitis and abscess of leg (5) Strain of tibialis anterior muscle (6) Cellulitis (7) Elevated troponin (8) Edema (9) Constipation (10) Knee contusion (11) Contusion of right elbow (12) UTI (urinary tract infection) (13) Muscle strain (14) Sinusitis (15) DM2 (diabetes mellitus, type 2) (16) ACS (acute coronary syndrome) (17) Cellulitis of left lower extremity (18) Chest pain (19) Pedal edema (20) Hx of pulmonary embolus (21) Abdominal pain Review of Symptoms General: no weight loss or fever Psychological: no depression or mood changes, no memory loss Ophthalmic: no visual changes or eye irritation Allergy and Immunology: no allergic symptoms or urticaria Hematological and Lymphatics: no swollen glands, unusual bleeding or bruising Endocrine: no polyuria, polydipsia, weight changes, temperature intolerance Respiratory: no cough, shortness of breath, or wheezing Cardiovascular: no chest pain or dyspnea on exertion Gastrointestinal: abdominal pain, no bright red blood in stool. Neurological: no TIA or stroke symptoms Dermatological: no new or changing skin lesions, rashes or pruritis Physical Exam General appearance: alert, cooperative, no distress, appears stated age Neck: supple, symmetrical, trachea midline, no adenopathy, thyroid Lungs: clear to auscultation bilaterally Heart: regular rate and rhythm, S1, S2 normal, no murmur, click, rub or gallop Abdomen: soft, non-tender but discomfort. minor lower abd ttp Extremities: extremities normal, atraumatic, no cyanosis or edema Pulses: 2+ and symmetric Skin: Skin color, texture, turgor normal. No rashes or lesions Neurologic: Grossly normal Labs: noted Imaging: noted Assessment/Plan # Pulmonary embolus/DVT 2018 has been off anticoag x 2 week --> too big for CTA --> consider v/q scan --> as per pulm eval --> consider switch to noac as when more stable # Anemia of chronic disease --> hgb trend 11.9-->11.5 --> no evidence of hemolysis noted --> cbc tomorrow # Abdominal pain us is negative for stones and obstructive process --> no surg acute intervention --> gi eval on prn basis # Historic ventral hernia. Nonobstructive. Abdominal exam does not elicit would be believe to be an obstruction. --> electrive op surgery prn # Chest pain --> r/o acs # History of pedal edema --> diuresis as needed basis # Type 2 Dm --> accuchecks qac and qhs --> a1c goal <7.5 Greatly appreciate consultation. Kameron Green MD Sep 18, 2018 09:01
--- NOTE | 2018-09-18 10:18 | Diagnostic Imaging Report ---
Indications: Chest pain Technique: IV administration 5.2 mCi 99m technetium macroaggregated albumin. Images obtained over the lungs in multiple projections. Previous, patient inhaled 40 mCi aerosolized 99M technetium DTPA. Images obtained over the lungs in multiple projections Comparison: 5 is made to chest radiograph dated 09/09/2018 Findings: There is very slight heterogeneity to tracer distribution on both image sets, presumably related to patient body habitus. No segmental or subsegmental perfusion defects. No evidence of perfusion/aerosol mismatch. Impression: Findings deemed low probability for pulmonary embolus
--- NOTE | 2018-09-18 10:25 | NUR ---
PT EVALUATION NOTE Patient seen for initial evaluation, see complete evaluation for details. Patient presents with generalized weakness which affects patient's ability to perform mobility tasks. Patient able to transfer with SBA without assistive device and able to ambulate 40 ft without assistive device, antalgic gait, slightly unsteady. Patient will benefit from skilled inpatient PT intervention to address strength, balance and functional mobility. Discharge disposition to be determined. Patient may benefit from SPC for ambulation. Addendum: 09/18/18 at 1308 by PAPO BRENNER PT Amended: Links added.
--- NOTE | 2018-09-18 11:51 | NUR ---
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 98.5 HR 70 RR 28 B/P 157/76 APTT 97 VQ SCAN= LOW PROBABILITY FOR PE IS: IVF NS @ 75ML/HR HEPARIN GTT MAGNESIUM IV STRESS TEST STEP DOWN STATUS
--- NOTE | 2018-09-18 11:53 | NUR ---
NURSE NOTES: Gave report to Jemma FERGUSON.
--- NOTE | 2018-09-18 12:12 | NUR ---
NURSE NOTES: Transfer pt to room 206-2. Cont. same dose of Heparin drip. No s/sx of bleeding noted. Pt. remain stable.
[2018-09-18 12:15] VITALS: BP 158/92
--- NOTE | 2018-09-18 12:15 | NUR ---
NURSE NOTES: Patient trasferred to the floor from [facility]. Report received from Miguel Ángel Saleh. Patient awake and alert. ambulatory, denies pain or discomfort. VS WNL. Patient NPO for Abd US. Heparin gtt at 16 units/hr infusing well . no s/s of active bleeding. will monitor.
--- NOTE | 2018-09-18 13:16 | Surgery Progress Note ---
Surgery Progress Note Subjective Symptoms: improved, pain absent, passing flatus Additional Comments no complaints pain resolved is hungry and wants food Objective Last 24 Hour Vital Signs Date Time Temp Pulse Resp B/P (MAP) Pulse Ox O2 Delivery O2 Flow Rate FiO2 09/18/18 12:15 98.2 72 22 158/92 (114) 98 09/18/18 09:40 65 20 95 Room Air 21 09/18/18 09:00 Room Air 09/18/18 08:00 98.5 70 28 157/76 (103) 96 09/18/18 07:46 67 09/18/18 04:00 97.2 72 20 133/90 (104) 96 09/18/18 03:34 76 09/18/18 00:00 98.1 70 22 128/90 (103) 97 09/17/18 23:24 70 09/17/18 21:00 97.9 78 22 158/80 (106) 98 09/17/18 21:00 76 18 97 Room Air 21 09/17/18 20:00 Room Air 09/17/18 19:00 84 09/17/18 15:15 73 I&O Intake and Output 09/17/18 09/18/18 18:59 06:59 Intake Total 1148.267 ml 1370.106 ml Balance 1148.267 ml 1370.106 ml Intake Oral 550 ml 350 ml IV Total 598.267 ml 1020.106 ml # Voids 7 2 Cardiovascular: RSR Respiratory: clear Abdomen: soft, flat, non-tender, present bowel sounds, other - obese Extremities: no cyanosis Laboratory Tests Test 09/17/18 14:20 09/17/18 21:15 09/18/18 03:45 Activated Partial Thromboplast Time 46 SEC (23-33) H 79 SEC (23-33) H 97 SEC (23-33) H Troponin I 0.000 ng/mL (0.000-0.056) 0.018 ng/mL (0.000-0.056) 0.012 ng/mL (0.000-0.056) White Blood Count 7.9 K/UL (4.8-10.8) Red Blood Count 4.51 M/UL (4.20-5.40) Hemoglobin 11.5 G/DL (12.0-16.0) L Hematocrit 37.7 % (37.0-47.0) Mean Corpuscular Volume 84 FL (80-99) Mean Corpuscular Hemoglobin 25.6 PG (27.0-31.0) L Mean Corpuscular Hemoglobin Concent 30.6 G/DL (32.0-36.0) L Red Cell Distribution Width 15.4 % (11.6-14.8) H Platelet Count 166 K/UL (150-450) Mean Platelet Volume 11.1 FL (6.5-10.1) H Neutrophils (%) (Auto) 50.3 % (45.0-75.0) Lymphocytes (%) (Auto) 40.2 % (20.0-45.0) Monocytes (%) (Auto) 6.4 % (1.0-10.0) Eosinophils (%) (Auto) 2.4 % (0.0-3.0) Basophils (%) (Auto) 0.6 % (0.0-2.0) Sodium Level 136 MMOL/L (136-145) Potassium Level 3.9 MMOL/L (3.5-5.1) Chloride Level 99 MMOL/L (98-107) Carbon Dioxide Level 26 MMOL/L (21-32) Anion Gap 11 mmol/L (5-15) Blood Urea Nitrogen 9 mg/dL (7-18) Creatinine 0.9 MG/DL (0.55-1.30) Estimat Glomerular Filtration Rate > 60 mL/min (>60) Glucose Level 255 MG/DL (74-106) #H Calcium Level 9.1 MG/DL (8.5-10.1) Magnesium Level 1.5 MG/DL (1.8-2.4) L Plan Problems: (1) Abdominal pain Assessment & Plan: 47-year-old female who presented with chest discomfort, shortness of breath, history of DVT on Eliquis, recent lower extremity edema, abdominal discomfort. Abnormal LFTs. On examination patient complaining of discomfort in the lower portions of her abdomen. She is fairly obese and unfortunately from my understanding cannot have a CT scan at this time. Abdominal examination does not elicit any peritonitis, significant tenderness, rebound, guarding. She has a known history of hernia which is reducible. No acute general surgery intervention recommended. Okay for diet from surgical standpoint. Appreciate heme and cardio input. Trend labs. Abdominal ultrasound ordered. Thank you for allowing me to participate in patient's care. We will continue with recommendations (2) Umbilical hernia Assessment & Plan: Historic ventral hernia. Nonobstructive. Abdominal exam does not elicit would be believe to be an obstruction. Patient passing flatus and just had a bowel movement. No nausea or vomiting. No acute surgical intervention recommended for patient's hernia. Will recommend elective outpatient follow-up for hernia repair. Vincenzo Jarvis Sep 18, 2018 13:16
--- NOTE | 2018-09-18 14:23 | NUR ---
NURSE NOTES: PTT resulted = 72 which is therapeutic. Protocol followed next PTT in am. Pharmacy aware. will monitor.
--- NOTE | 2018-09-18 15:24 | Diagnostic Imaging Report ---
Indications: Chest pain Technique: Single day single isotope protocol utilized. Initially, resting images obtained using IV administration 11 millicuries 99M technetium Myoview. Subsequently, patient underwent lexiscan stress testing. See cardiology report for details. During Lexiscan infusion, IV administration 33 mCi 99 M technetium Myoview. SPECT and planar images obtained. SPECT images gated to 8 phases of the cardiac cycle were also obtained, and reformatted into cine images for evaluation of ejection fraction. Comparison: none Findings: Presence or absence of symptoms during infusion is not described in the cardiology report. Per cardiology report, resting EKG demonstrates sinus rhythm with baseline T-wave inversion in the inferior and lateral leads. Present or absence of ST-T wave changes during infusion is not described in the cardiology report. Imaging demonstrates a small perfusion defect extending from the apex into the anteroseptal wall which is probably slightly smaller on the resting images. However, given body habitus evidenced on other prior studies this could also represent a soft tissue attenuation artifact. No other fixed or reversible poststress perfusion defects are demonstrated. Normal cardiac chamber size. Calculated post stress ejection fraction 73%. No focal wall motion abnormality Impression: Nonischemic clinical response to pharmacologic stress, per cardiology report Nonischemic electrocardiographic response to pharmacologic stress, per cardiology report Small anteroseptal wall perfusion defect, which appears partially fixed, partially reversible, may indicate a small infarct with sanna-infarct ischemia but could also be an artifact of soft tissue attenuation Calculated post stress ejection fraction 73%
--- NOTE | 2018-09-18 15:24 | Cardiac Electrophysiology PN ---
Assessment/Plan Assessment/Plan 1. Atypical chest pain. EKG is nonischemic. Ruled out for IN. Echo Nl EF. Stress test results from today is pending. 2. History of DVT and pulmonary embolism in May 2017. On Eliquis for more than a year. V/Q scan shows low probability of PE. On heparin drip 3. Hyperlipidemia, on Lipitor. 4. Morbid obesity. 5. Hypertension. Start Lisinopril 10 daily 6. Uncontrolled diabetes with glucose of 417. Subjective Subjective No CP or SOB. Stress test results from today pending. Objective Last 24 Hour Vital Signs Date Time Temp Pulse Resp B/P (MAP) Pulse Ox O2 Delivery O2 Flow Rate FiO2 09/18/18 12:15 98.2 72 22 158/92 (114) 98 09/18/18 12:00 66 09/18/18 09:40 65 20 95 Room Air 21 09/18/18 09:00 Room Air 09/18/18 08:00 98.5 70 28 157/76 (103) 96 09/18/18 07:46 67 09/18/18 04:00 97.2 72 20 133/90 (104) 96 09/18/18 03:34 76 09/18/18 00:00 98.1 70 22 128/90 (103) 97 09/17/18 23:24 70 09/17/18 21:00 97.9 78 22 158/80 (106) 98 09/17/18 21:00 76 18 97 Room Air 21 09/17/18 20:00 Room Air 09/17/18 19:00 84 Intake and Output 09/17/18 09/18/18 18:59 06:59 Intake Total 1148.267 ml 1370.106 ml Balance 1148.267 ml 1370.106 ml Intake Oral 550 ml 350 ml IV Total 598.267 ml 1020.106 ml # Voids 7 2 Laboratory Tests Test 09/17/18 21:15 09/18/18 03:45 09/18/18 13:25 Activated Partial Thromboplast Time 79 SEC (23-33) H 97 SEC (23-33) H 72 SEC (23-33) H Troponin I 0.018 ng/mL (0.000-0.056) 0.012 ng/mL (0.000-0.056) White Blood Count 7.9 K/UL (4.8-10.8) Red Blood Count 4.51 M/UL (4.20-5.40) Hemoglobin 11.5 G/DL (12.0-16.0) L Hematocrit 37.7 % (37.0-47.0) Mean Corpuscular Volume 84 FL (80-99) Mean Corpuscular Hemoglobin 25.6 PG (27.0-31.0) L Mean Corpuscular Hemoglobin Concent 30.6 G/DL (32.0-36.0) L Red Cell Distribution Width 15.4 % (11.6-14.8) H Platelet Count 166 K/UL (150-450) Mean Platelet Volume 11.1 FL (6.5-10.1) H Neutrophils (%) (Auto) 50.3 % (45.0-75.0) Lymphocytes (%) (Auto) 40.2 % (20.0-45.0) Monocytes (%) (Auto) 6.4 % (1.0-10.0) Eosinophils (%) (Auto) 2.4 % (0.0-3.0) Basophils (%) (Auto) 0.6 % (0.0-2.0) Sodium Level 136 MMOL/L (136-145) Potassium Level 3.9 MMOL/L (3.5-5.1) Chloride Level 99 MMOL/L (98-107) Carbon Dioxide Level 26 MMOL/L (21-32) Anion Gap 11 mmol/L (5-15) Blood Urea Nitrogen 9 mg/dL (7-18) Creatinine 0.9 MG/DL (0.55-1.30) Estimat Glomerular Filtration Rate > 60 mL/min (>60) Glucose Level 255 MG/DL (74-106) #H Calcium Level 9.1 MG/DL (8.5-10.1) Magnesium Level 1.5 MG/DL (1.8-2.4) L Objective HEAD AND NECK: No JVD. LUNGS: Clear. CARDIOVASCULAR: Regular S1 and S2 with no gallop or murmur. ABDOMEN: Soft. EXTREMITIES: Show bilateral 1+ pitting edema. Paulino Mcfarland MD Sep 18, 2018 15:24
--- NOTE | 2018-09-18 15:56 | NUR ---
Social Work This SW received a consult due to homelessness. This Sw met with patient who is explains she has been living in her car for the past four months. 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 Patient stating she could stay with her son (and has two other daughters), but insisting on living this way, according to her daughter at bedside. Patient remains alert/oriented and making her own decisions. Patient explains she has applied for low income housing; pending at this time. This Sw provided additional housing and homeless program information as well. Recuperative Care suggested, as needed. Pending progress at this time. Patient denied any other mental health or substance abuse concerns. Patient quit smoking cigarettes over eight years ago (smoked 5-7 cigarettes for fourteen years). Brief emotional support provided. SW to follow. Addendum: 09/18/18 at 1604 by ZAINAB WADDELL Addendum: Patient explains she is ambulatory, remains independent with ADLs, while having shortness of breath due to her obesity. Patient does use home 02 or any DME. Addendum: 09/20/18 at 2756 by ZAINAB L RATH AMPLIFIER MECHANIC correction: patient does not use any home 02 or DME.
--- NOTE | 2018-09-18 16:23 | Diagnostic Imaging Report ---
Indication: Reason For Exam: ABD PAIN Technique: Prado-scale and duplex images of the upper abdomen were obtained Comparison: none Findings: Exam is limited due to patient body habitus and overlying bowel gas Gallbladder is unremarkable, without stones, wall thickening, nor pericholecystic fluid. Sonographic Moreno's sign is negative. Common bile duct measures mm in diameter. No intrahepatic biliary ductal dilatation. Liver demonstrates diffusely increased echogenicity, consistent with diffuse hepatocellular disease, most likely fatty change. Portal vein and hepatic veins are patent. Pancreas is incompletely visualized due to overlying bowel gas, visualized portions are unremarkable. Spleen is unremarkable. Left kidney measures 12.1 cm in length. Right kidney measures 11 point cm length. Both kidneys demonstrate normal echogenicity. There is no hydronephrosis. No focal abnormality . Non-aneurysmal abdominal aorta . Partially obscured Impression: Negative for gallstones or dilated bile ducts. Liver demonstrates diffusely increased echogenicity, consistent with diffuse hepatocellular disease, most likely fatty change. Limited exam, as described. Noted immediately visualized portions of the abdominal aorta and of the pancreas
[2018-09-18 16:30] VITALS: BP 131/64
[2018-09-18] MEDS: NovoLOG Insulin Flexpen SUBQ SCH (18:40)
--- NOTE | 2018-09-18 19:23 | NUR ---
HAND-OFF: Report given to Agusto Luz Rn. Patient stable. Plan of care endorsed.
--- NOTE | 2018-09-18 19:25 | NUR ---
NURSE NOTES: Pt received from MARTY Mahajan alert and oriented x4 currently sitting up in bed watching TV with no acute s/s of distress noted. On room air. IV site asymptomatic and patent on L ac 20g, with Heparin drip running (16 U/kg/hr, 158.304 kg, 50.657 ml/hr). R upper arm 22g asymptomatic and patent, running to NS at 75. Bed in lowest position, call light and belongings within reach.
[2018-09-18 20:00] VITALS: BP 122/72
--- NOTE | 2018-09-18 20:01 | General Progress Note ---
Assessment/Plan Assessment/Plan: Pt presented with chest pain and SOB, admitted for poss PE and R/O ACS #Hx PE/ DVT - took AC for over 1 year off x 2 weeks due to insurance problems -Heparin GTT -VQ scan - low probability -pulonary consult appreciated -Echo reviewed #Chest pain r/o ACS -serial troponins and EKG - unremarkable -cardiology consult appreciated -pendign stress test results #HTN -cont lisinopril 10mg daily -hydralazine PRN #DM -cont ISS -Lantus 10units QHS started -carb controlled diet -CTM FSG Code: [place] of note may not reflect time of encounter Subjective Date patient seen: Sep 18, 2018 ROS Limited/Unobtainable: No Allergies: Coded Allergies: No Known Allergies (Unverified , 08/31/14) All Systems: reviewed and negative except above Subjective No acute overnight events, had stress test today, pending results, pt with no complaints Objective Last 24 Hour Vital Signs Date Time Temp Pulse Resp B/P (MAP) Pulse Ox O2 Delivery O2 Flow Rate FiO2 09/18/18 16:30 91 09/18/18 16:30 96.8 94 20 131/64 (86) 96 09/18/18 12:15 98.2 72 22 158/92 (114) 98 09/18/18 12:00 66 09/18/18 09:40 65 20 95 Room Air 21 09/18/18 09:00 Room Air 09/18/18 08:00 98.5 70 28 157/76 (103) 96 09/18/18 07:46 67 09/18/18 04:00 97.2 72 20 133/90 (104) 96 09/18/18 03:34 76 09/18/18 00:00 98.1 70 22 128/90 (103) 97 09/17/18 23:24 70 09/17/18 21:00 97.9 78 22 158/80 (106) 98 09/17/18 21:00 76 18 97 Room Air 21 09/17/18 20:00 Room Air Intake and Output 09/17/18 09/18/18 18:59 06:59 Intake Total 1148.267 ml 1370.106 ml Balance 1148.267 ml 1370.106 ml Intake Oral 550 ml 350 ml IV Total 598.267 ml 1020.106 ml # Voids 7 2 Laboratory Tests 09/17/18 21:15: Activated Partial Thromboplast Time 79H, Troponin I 0.018 09/18/18 03:45: Activated Partial Thromboplast Time 97H, Troponin I 0.012, White Blood Count 7.9 , Red Blood Count 4.51, Hemoglobin 11.5L, Hematocrit 37.7, Mean Corpuscular Volume 84, Mean Corpuscular Hemoglobin 25.6L, Mean Corpuscular Hemoglobin Concent 30.6L, Red Cell Distribution Width 15.4H, Platelet Count 166, Mean Platelet Volume 11.1H, Neutrophils (%) (Auto) 50.3, Lymphocytes (%) (Auto) 40.2 , Monocytes (%) (Auto) 6.4, Eosinophils (%) (Auto) 2.4, Basophils (%) (Auto) 0.6 , Sodium Level 136, Potassium Level 3.9, Chloride Level 99, Carbon Dioxide Level 26, Anion Gap 11, Blood Urea Nitrogen 9, Creatinine 0.9, Estimat Glomerular Filtration Rate > 60, Glucose Level 255#H, Calcium Level 9.1, Magnesium Level 1.5L 09/18/18 13:25: Activated Partial Thromboplast Time 72H Height (Feet): 5 Height (Inches): 3.00 Weight (Pounds): 349 Objective General appearance: alert, cooperative, no distress, appears stated age, obese Head: Normocephalic, without obvious abnormality, atraumatic Eyes: conjunctivae/corneas clear. PERRL, EOM's intact. Fundi benign Throat: Lips, mucosa, and tongue normal. Teeth and gums normal Neck: supple, symmetrical, trachea midline, no adenopathy, thyroid: not enlarged , symmetric, no tenderness/mass/nodules, no carotid bruit and no JVD Lungs: clear to auscultation bilaterally Heart: regular rate and rhythm, S1, S2 normal, no murmur, click, rub or gallop Abdomen: soft, non-tender. Bowel sounds normal. No masses, no organomegaly Extremities: extremities normal, atraumatic, no cyanosis or edema Pulses: 2+ and symmetric Skin: Skin color, texture, turgor normal. No rashes or lesions Neurologic: Grossly normal Nighat Cali MD Sep 18, 2018 20:01
[2018-09-18] MEDS: Atorvastatin 20mg tab ORAL SCH (21:04)
[2018-09-18] MEDS: Levemir Flexpen SUBQ SCH (21:09)
--- NOTE | 2018-09-18 22:08 | Neurology Progress Note ---
Interim History Interim History ROS Limited/Unobtainable: No Interim History vertigo much improved Review of Systems All Systems: reviewed and negative except above Objective Physical Exam Last Vital Signs Date Time Temp Pulse Resp B/P (MAP) Pulse Ox O2 Delivery O2 Flow Rate FiO2 09/18/18 20:00 97.7 87 18 122/72 (89) 95 09/18/18 09:40 Room Air 21 Laboratory Tests Test 09/18/18 03:45 09/18/18 13:25 White Blood Count 7.9 K/UL (4.8-10.8) Red Blood Count 4.51 M/UL (4.20-5.40) Hemoglobin 11.5 G/DL (12.0-16.0) L Hematocrit 37.7 % (37.0-47.0) Mean Corpuscular Volume 84 FL (80-99) Mean Corpuscular Hemoglobin 25.6 PG (27.0-31.0) L Mean Corpuscular Hemoglobin Concent 30.6 G/DL (32.0-36.0) L Red Cell Distribution Width 15.4 % (11.6-14.8) H Platelet Count 166 K/UL (150-450) Mean Platelet Volume 11.1 FL (6.5-10.1) H Neutrophils (%) (Auto) 50.3 % (45.0-75.0) Lymphocytes (%) (Auto) 40.2 % (20.0-45.0) Monocytes (%) (Auto) 6.4 % (1.0-10.0) Eosinophils (%) (Auto) 2.4 % (0.0-3.0) Basophils (%) (Auto) 0.6 % (0.0-2.0) Activated Partial Thromboplast Time 97 SEC (23-33) H 72 SEC (23-33) H Sodium Level 136 MMOL/L (136-145) Potassium Level 3.9 MMOL/L (3.5-5.1) Chloride Level 99 MMOL/L (98-107) Carbon Dioxide Level 26 MMOL/L (21-32) Anion Gap 11 mmol/L (5-15) Blood Urea Nitrogen 9 mg/dL (7-18) Creatinine 0.9 MG/DL (0.55-1.30) Estimat Glomerular Filtration Rate > 60 mL/min (>60) Glucose Level 255 MG/DL (74-106) #H Calcium Level 9.1 MG/DL (8.5-10.1) Magnesium Level 1.5 MG/DL (1.8-2.4) L Troponin I 0.012 ng/mL (0.000-0.056) General: well developed, well nourished Neurologic Exam Mental Status: awake, alert, oriented x4, normal cognition, good mathematical skills, normal recent memory, normal remote memory, preserved visuospatial function Speech: normal speech, no dysarthia Cranial Nerve II: fundus normal, visual wells, no papilledema Cranial Nerves III, IV, : PERRLA, EOMI, pupils Cranial Nerve V: normal facial sensations, temporales function normal, masseters function normal, pterygoids function normal Cranial Nerve VII: no facial asymmetry, normal facial expressions Cranial Nerve VIII: normal hearing, no nystagmus Cranial Nerve IX: normal palate elevation, gag response Motor System: normal muscle tone, strength 5/5, no involuntary movement, no muscle wasting Objective ataxic Impression/Recommendations Problems: (1) Chest pain (2) Pedal edema (3) Hx of pulmonary embolus (4) Umbilical hernia (5) Abdominal pain (6) Abdominal pain (7) Constipation (8) Muscle strain (9) Cellulitis (10) Edema (11) Sinusitis (12) UTI (urinary tract infection) (13) Cellulitis and abscess of leg (14) Cellulitis and abscess of leg (15) ACS (acute coronary syndrome) (16) Elevated troponin (17) Knee contusion (18) Contusion of right elbow (19) Strain of tibialis anterior muscle (20) Cellulitis of left lower extremity (21) DM2 (diabetes mellitus, type 2) Diagnostic Impression Vertigo likely peripheral rule out infectious metabolic ok to cont anticoagulation No need for brain imagin pt ot Ismael Lopez MD Sep 18, 2018 22:08
[2018-09-19] VITALS: BP 122/64
[2018-09-19] MEDS: Heparin 25,000u/D5W 500ml 500 ML IV SCH (03:00)
[2018-09-19 04:00] VITALS: BP 116/61
--- NOTE | 2018-09-19 04:53 | NUR ---
NURSE NOTES: Pt sitting up in bed, speaking to family on phone with no acute s/s of distress noted. IV site asymptomatic and patent on R upper arm 22g running to Ns at 75 and L ac 20g running to Heparin drip. Bed in lowest position, call light and belongings within reach.
[2018-09-19] MEDS: NovoLOG Insulin Flexpen SUBQ SCH ×4 (06:10→21:11)
[2018-09-19] MEDS ORDERED: Heparin 25,000u/D5W 500ml 500 ML IV SCH (07:30)
[2018-09-19] MEDS ORDERED: Heparin 5000 units/ml inj IV SCH (07:30)
[2018-09-19 08:00] VITALS: BP 147/99
--- NOTE | 2018-09-19 08:11 | NUR ---
HAND-OFF: Report given to MARTY Duran. No acute s/s of distress noted.
--- NOTE | 2018-09-19 08:15 | NUR ---
NURSE NOTES: Received report from Bertin/RN, Patient alert and oriented x4 currently lying semi-wasserman, resting in bed with no acute distress/SOB noted. On room air. IV site asymptomatic and patent on L AC 20g to NS running at 75. R upper arm 22g asymptomatic and patent, running with Heparin drip running (20 U/kg/hr, 158.304 kg. Bed in lowest position and locked, call light and belongings within reach. Will continue plan of care.
--- NOTE | 2018-09-19 08:51 | Pulmonology Progress Note ---
Assessment/Plan Problems: (1) Hx of pulmonary embolus (2) ALISIA (obstructive sleep apnea) (3) Morbid obesity (4) Chest pain (5) Medical non-compliance (6) DM2 (diabetes mellitus, type 2) Assessment/Plan D/C [facility] Start Hep 5 BID Consider decrease to lower dose in the future Outpatient hypercoag eval Weight loss, diet and exercise discussed Needs an outpatient sleep study, previously Dx'd with ALISIA but lost device ABG to assess baseline gas exchange prior to discharge If gas exchange adequate patient is stable from a pulmonary standpoint to D/C home Subjective Allergies: Coded Allergies: No Known Allergies (Unverified , 08/31/14) Subjective AFVSS on RA No CP no SOB no FC NM stress test without ischemia Objective Last 24 Hour Vital Signs Date Time Temp Pulse Resp B/P (MAP) Pulse Ox O2 Delivery O2 Flow Rate FiO2 09/19/18 04:00 92 09/19/18 04:00 97.3 85 18 116/61 (79) 95 09/19/18 00:00 97.9 94 18 122/64 (83) 97 09/19/18 00:00 89 09/18/18 21:46 91 20 93 Room Air 21 09/18/18 21:00 Room Air 09/18/18 20:00 97.7 87 18 122/72 (89) 95 09/18/18 20:00 94 09/18/18 16:30 91 09/18/18 16:30 96.8 94 20 131/64 (86) 96 09/18/18 12:15 98.2 72 22 158/92 (114) 98 09/18/18 12:00 66 09/18/18 09:40 65 20 95 Room Air 21 09/18/18 09:00 Room Air Intake and Output 09/18/18 09/19/18 19:00 07:00 Intake Total 1161.535 ml 1382.227 ml Balance 1161.535 ml 1382.227 ml Intake Oral 280 ml IV Total 881.535 ml 1382.227 ml # Voids 3 General Appearance: no acute distress, other - morbid obese female HEENT: normocephalic, atraumatic, anicteric, mucous membranes moist Respiratory/Chest: chest wall non-tender, lungs clear, normal breath sounds, no respiratory distress, no accessory muscle use Cardiovascular: normal peripheral pulses, normal rate, regular rhythm Abdomen: normal bowel sounds, soft, non tender, no organomegaly, non distended , no mass Extremities: no cyanosis, no clubbing, no edema Microbiology Date/Time Source Procedure Growth Status 09/17/18 08:20 Blood Blood Culture - Preliminary NO GROWTH AFTER 24 HOURS Resulted 09/17/18 08:20 Blood Blood Culture - Preliminary NO GROWTH AFTER 24 HOURS Resulted Laboratory Tests 09/18/18 13:25: Activated Partial Thromboplast Time 72H 09/19/18 06:54: Activated Partial Thromboplast Time 30 Current Medications Medications (Trade) Dose Ordered Sig/Milo Route PRN Reason Start Time Stop Time Status Last Admin Dose Admin Acetaminophen (Tylenol) 650 mg Q4H PRN ORAL Mild Pain (Pain Scale 1-3) 09/17/18 10:00 10/17/18 09:59 Acetaminophen/ Hydrocodone Bitart ([place] 5/325) 1 tab Q4H PRN ORAL Moderate Pain (Pain Scale 4-6) 09/17/18 10:00 09/24/18 09:59 Acetaminophen/ Hydrocodone Bitart ([place] 5/325) 2 tab Q4H PRN ORAL Severe Pain (Pain Scale 7-10) 09/17/18 10:00 09/24/18 09:59 09/17/18 21:40 Albuterol/ Ipratropium (Albuterol/ Ipratropium) 3 ml Q6H PRN HHN Shortness of Breath 09/17/18 10:00 09/22/18 09:59 Atorvastatin Calcium (Lipitor) 20 mg BEDTIME ORAL 09/17/18 21:00 10/17/18 20:59 09/18/18 21:04 Bisacodyl (Dulcolax) 10 mg DAILYPRN PRN RECTAL Constipation 09/17/18 10:00 10/17/18 09:59 Dextrose (Dextrose 50%) 25 ml Q30M PRN IV Hypoglycemia 09/17/18 10:00 10/17/18 09:59 Dextrose (Dextrose 50%) 25 ml Q30M PRN IV Hypoglycemia 09/18/18 18:00 10/18/18 17:59 Dextrose (Dextrose 50%) 50 ml Q30M PRN IV Hypoglycemia 09/17/18 10:00 10/17/18 09:59 Dextrose (Dextrose 50%) 50 ml Q30M PRN IV Hypoglycemia 09/18/18 18:00 10/18/18 17:59 Diphenhydramine HCl (Benadryl) 25 mg Q6H PRN ORAL Itching/Pruritis 09/17/18 10:00 10/17/18 09:59 Heparin Sodium (Porcine) (Heparin 5000 units/ml) 12,500 units ONCE IV 09/19/18 07:30 09/19/18 09:00 09/19/18 07:55 Heparin Sodium/ Dextrose 500 ml @ 63.322 mls/ hr ADJUST PER PROTOCOL IV 09/19/18 07:30 10/19/18 07:29 09/19/18 07:54 Hydralazine HCl (Apresoline) 10 mg Q6H PRN IV For High Blood Pressure 09/18/18 20:00 10/18/18 19:59 Insulin Aspart (NovoLOG) BEFORE MEALS AND HS SUBQ 09/18/18 21:00 10/18/18 20:59 09/19/18 06:10 Insulin Detemir (Levemir) 10 units BEDTIME SUBQ 09/18/18 21:00 10/18/18 20:59 09/18/18 21:09 Lisinopril (Zestril) 10 mg DAILY ORAL 09/19/18 09:00 10/19/18 08:59 Lorazepam (Ativan 2mg/ml 1ml) 0.5 mg Q4H PRN IV For Anxiety 09/17/18 10:00 09/24/18 09:59 Magnesium Hydroxide (Mom) 30 ml HSPRN PRN ORAL Constipation 09/17/18 10:00 10/17/18 09:59 Ondansetron HCl (Zofran) 4 mg Q6H PRN IVP Nausea & Vomiting 09/17/18 10:00 10/17/18 09:59 Sodium Chloride 1,000 ml @ 75 mls/hr [id number] IVLG 09/17/18 10:45 10/17/18 10:44 09/19/18 06:11 Temazepam (Restoril) 15 mg HSPRN PRN ORAL Insomnia 09/17/18 10:00 09/24/18 09:59 Trell Sands MD Sep 19, 2018 08:51
--- NOTE | 2018-09-19 09:28 | Hematology/Onc Progress Note ---
Assessment/Plan Assessment/Plan Assessment/Plan # Pulmonary embolus/DVT 2018 has been off anticoag x 2 week --> too big for CTA --> consider v/q scan --> as per pulm eval --> consider switch to noac as when more stable (has taken blood thinner since 2018) --> outpatient hypercoag w/u # Anemia of chronic disease --> hgb trend 11.9-->11.5 --> no evidence of hemolysis noted --> cbc ordered # Abdominal pain us is negative for stones and obstructive process --> no surg acute intervention --> gi eval on prn basis # Historic ventral hernia. Nonobstructive. Abdominal exam does not elicit would be believe to be an obstruction. --> electrive op surgery prn # Chest pain --> r/o acs # History of pedal edema --> diuresis as needed basis # Type 2 Dm --> accuchecks qac and qhs --> a1c goal <7.5 Greatly appreciate consultation. Subjective Constitutional: Denies: no symptoms, chills, fever, malaise, weakness, other HEENT: Denies: no symptoms, eye pain, blurred vision, tearing, double vision, ear pain, ear discharge, nose pain, nose congestion, throat pain, throat swelling, mouth pain, mouth swelling, other Cardiovascular: Denies: no symptoms, chest pain, edema, irregular heart rate, lightheadedness, palpitations, syncope, other Respiratory: Denies: no symptoms, cough, shortness of breath, SOB with excertion, SOB at rest, sputum, wheezing, other Gastrointestinal/Abdominal: Denies: no symptoms, abdomen distended, abdominal pain, black stools, tarry stools, blood in stool, constipated, diarrhea, difficulty swallowing, nausea, poor appetite, poor fluid intake, rectal bleeding , vomiting, other Genitourinary: Denies: no symptoms, burning, discharge, frequency, flank pain, hematuria, incontinence, pain, urgency, other Neurologic/Psychiatric: Denies: no symptoms, anxiety, depressed, emotional problems, headache, numbness, paresthesia, pre-existing deficit, seizure, tingling, tremors, weakness, other Endocrine: Denies: no symptoms, excessive sweating, flushing, intolerance to cold, intolerance to heat, increased hunger, increased thirst, increased urine, unexplained weight gain, unexplained weight loss, other Hematologic/Lymphatic: Denies: no symptoms, anemia, easy bleeding, easy bruising, adenopathy, other Allergies: Coded Allergies: No Known Allergies (Unverified , 08/31/14) Subjective 09/19/18: no events, no bleeding, have d/c heparin gtt, back on apixaban Objective Objective Current Medications Medications (Trade) Dose Ordered Sig/Milo Route PRN Reason Start Time Stop Time Status Last Admin Dose Admin Acetaminophen (Tylenol) 650 mg Q4H PRN ORAL Mild Pain (Pain Scale 1-3) 09/17/18 10:00 10/17/18 09:59 Acetaminophen/ Hydrocodone Bitart ([place] 5/325) 1 tab Q4H PRN ORAL Moderate Pain (Pain Scale 4-6) 09/17/18 10:00 09/24/18 09:59 Acetaminophen/ Hydrocodone Bitart ([place] 5/325) 2 tab Q4H PRN ORAL Severe Pain (Pain Scale 7-10) 09/17/18 10:00 09/24/18 09:59 09/17/18 21:40 Albuterol/ Ipratropium (Albuterol/ Ipratropium) 3 ml Q6H PRN HHN Shortness of Breath 09/17/18 10:00 09/22/18 09:59 Apixaban (Eliquis) 5 mg BID ORAL 09/19/18 09:00 10/19/18 08:59 Atorvastatin Calcium (Lipitor) 20 mg BEDTIME ORAL 09/17/18 21:00 10/17/18 20:59 09/18/18 21:04 Bisacodyl (Dulcolax) 10 mg DAILYPRN PRN RECTAL Constipation 09/17/18 10:00 10/17/18 09:59 Dextrose (Dextrose 50%) 25 ml Q30M PRN IV Hypoglycemia 09/17/18 10:00 10/17/18 09:59 Dextrose (Dextrose 50%) 25 ml Q30M PRN IV Hypoglycemia 09/18/18 18:00 10/18/18 17:59 Dextrose (Dextrose 50%) 50 ml Q30M PRN IV Hypoglycemia 09/17/18 10:00 10/17/18 09:59 Dextrose (Dextrose 50%) 50 ml Q30M PRN IV Hypoglycemia 09/18/18 18:00 10/18/18 17:59 Diphenhydramine HCl (Benadryl) 25 mg Q6H PRN ORAL Itching/Pruritis 09/17/18 10:00 10/17/18 09:59 Hydralazine HCl (Apresoline) 10 mg Q6H PRN IV For High Blood Pressure 09/18/18 20:00 10/18/18 19:59 Insulin Aspart (NovoLOG) BEFORE MEALS AND HS SUBQ 09/18/18 21:00 10/18/18 20:59 09/19/18 06:10 Insulin Detemir (Levemir) 10 units BEDTIME SUBQ 09/18/18 21:00 10/18/18 20:59 09/18/18 21:09 Lisinopril (Zestril) 10 mg DAILY ORAL 09/19/18 09:00 10/19/18 08:59 Lorazepam (Ativan 2mg/ml 1ml) 0.5 mg Q4H PRN IV For Anxiety 09/17/18 10:00 09/24/18 09:59 Magnesium Hydroxide (Mom) 30 ml HSPRN PRN ORAL Constipation 09/17/18 10:00 10/17/18 09:59 Ondansetron HCl (Zofran) 4 mg Q6H PRN IVP Nausea & Vomiting 09/17/18 10:00 10/17/18 09:59 Sodium Chloride 1,000 ml @ 75 mls/hr [id number] IVLG 09/17/18 10:45 10/17/18 10:44 09/19/18 06:11 Temazepam (Restoril) 15 mg HSPRN PRN ORAL Insomnia 09/17/18 10:00 09/24/18 09:59 Last 24 Hour Vital Signs Date Time Temp Pulse Resp B/P (MAP) Pulse Ox O2 Delivery O2 Flow Rate FiO2 09/19/18 08:00 97.3 79 20 147/99 (115) 97 09/19/18 04:00 92 09/19/18 04:00 97.3 85 18 116/61 (79) 95 09/19/18 00:00 97.9 94 18 122/64 (83) 97 09/19/18 00:00 89 09/18/18 21:46 91 20 93 Room Air 21 09/18/18 21:00 Room Air 09/18/18 20:00 97.7 87 18 122/72 (89) 95 09/18/18 20:00 94 09/18/18 16:30 91 09/18/18 16:30 96.8 94 20 131/64 (86) 96 09/18/18 12:15 98.2 72 22 158/92 (114) 98 09/18/18 12:00 66 09/18/18 09:40 65 20 95 Room Air 21 09/18/18 09:00 Room Air 09/18/18 08:00 98.5 70 28 157/76 (103) 96 09/18/18 07:46 67 09/18/18 04:00 97.2 72 20 133/90 (104) 96 09/18/18 03:34 76 09/18/18 00:00 98.1 70 22 128/90 (103) 97 09/17/18 23:24 70 09/17/18 21:00 97.9 78 22 158/80 (106) 98 09/17/18 21:00 76 18 97 Room Air 21 09/17/18 20:00 Room Air 09/17/18 19:00 84 09/17/18 15:15 73 09/17/18 12:00 70 09/17/18 12:00 96.6 63 20 149/67 (94) 98 09/17/18 11:31 Room Air 09/17/18 11:00 98.0 70 17 120/86 96 Room Air 09/17/18 10:55 98.0 70 17 120/86 96 Room Air 09/17/18 10:05 98.0 72 12 115/85 97 Room Air Intake and Output 09/18/18 09/19/18 19:00 07:00 Intake Total 1161.535 ml 1382.227 ml Balance 1161.535 ml 1382.227 ml Intake Oral 280 ml IV Total 881.535 ml 1382.227 ml # Voids 3 Labs Test 09/17/18 07:10 09/17/18 08:34 09/17/18 14:20 09/17/18 21:15 White Blood Count 9.8 K/UL (4.8-10.8) Red Blood Count 4.61 M/UL (4.20-5.40) Hemoglobin 11.9 G/DL (12.0-16.0) Hematocrit 38.5 % (37.0-47.0) Mean Corpuscular Volume 84 FL (80-99) Mean Corpuscular Hemoglobin 25.8 PG (27.0-31.0) Mean Corpuscular Hemoglobin Concent 30.9 G/DL (32.0-36.0) Red Cell Distribution Width 15.6 % (11.6-14.8) Platelet Count 183 K/UL (150-450) Mean Platelet Volume 9.9 FL (6.5-10.1) Neutrophils (%) (Auto) 58.8 % (45.0-75.0) Lymphocytes (%) (Auto) 32.8 % (20.0-45.0) Monocytes (%) (Auto) 5.5 % (1.0-10.0) Eosinophils (%) (Auto) 2.1 % (0.0-3.0) Basophils (%) (Auto) 0.8 % (0.0-2.0) Activated Partial Thromboplast Time 22 SEC (23-33) 46 SEC (23-33) 79 SEC (23-33) D-Dimer 1.53 mg/L FEU (0.00-0.49) Sodium Level 136 MMOL/L (136-145) Potassium Level 4.0 MMOL/L (3.5-5.1) Chloride Level 100 MMOL/L (98-107) Carbon Dioxide Level 27 MMOL/L (21-32) Anion Gap 9 mmol/L (5-15) Blood Urea Nitrogen 11 mg/dL (7-18) Creatinine 1.1 MG/DL (0.55-1.30) Estimat Glomerular Filtration Rate > 60 mL/min (>60) Glucose Level 417 MG/DL (74-106) Calcium Level 9.5 MG/DL (8.5-10.1) Total Bilirubin 0.2 MG/DL (0.2-1.0) Aspartate Amino Transf (AST/SGOT) 30 U/L (15-37) Alanine Aminotransferase (ALT/SGPT) 38 U/L (12-78) Alkaline Phosphatase 148 U/L (46-116) Total Creatine Kinase 143 U/L (26-308) Creatine Kinase MB 0.5 NG/ML (0.0-3.6) Creatine Kinase MB Relative Index 0.3 Troponin I 0.015 ng/mL (0.000-0.056) 0.000 ng/mL (0.000-0.056) 0.018 ng/mL (0.000-0.056) Pro-B-Type Natriuretic Peptide 31 pg/mL (0-125) Total Protein 7.6 G/DL (6.4-8.2) Albumin 3.1 G/DL (3.4-5.0) Globulin 4.5 g/dL Albumin/Globulin Ratio 0.7 (1.0-2.7) Urine Opiates Screen Negative (NEGATIVE) Urine Barbiturates Screen Negative (NEGATIVE) Phencyclidine (PCP) Screen Negative (NEGATIVE) Urine Amphetamines Screen Negative (NEGATIVE) Urine Benzodiazepines Screen Negative (NEGATIVE) Urine Cocaine Screen Negative (NEGATIVE) Urine Marijuana (THC) Screen Negative (NEGATIVE) Test 09/18/18 03:45 09/18/18 13:25 09/19/18 06:54 White Blood Count 7.9 K/UL (4.8-10.8) Red Blood Count 4.51 M/UL (4.20-5.40) Hemoglobin 11.5 G/DL (12.0-16.0) Hematocrit 37.7 % (37.0-47.0) Mean Corpuscular Volume 84 FL (80-99) Mean Corpuscular Hemoglobin 25.6 PG (27.0-31.0) Mean Corpuscular Hemoglobin Concent 30.6 G/DL (32.0-36.0) Red Cell Distribution Width 15.4 % (11.6-14.8) Platelet Count 166 K/UL (150-450) Mean Platelet Volume 11.1 FL (6.5-10.1) Neutrophils (%) (Auto) 50.3 % (45.0-75.0) Lymphocytes (%) (Auto) 40.2 % (20.0-45.0) Monocytes (%) (Auto) 6.4 % (1.0-10.0) Eosinophils (%) (Auto) 2.4 % (0.0-3.0) Basophils (%) (Auto) 0.6 % (0.0-2.0) Activated Partial Thromboplast Time 97 SEC (23-33) 72 SEC (23-33) 30 SEC (23-33) Sodium Level 136 MMOL/L (136-145) Potassium Level 3.9 MMOL/L (3.5-5.1) Chloride Level 99 MMOL/L (98-107) Carbon Dioxide Level 26 MMOL/L (21-32) Anion Gap 11 mmol/L (5-15) Blood Urea Nitrogen 9 mg/dL (7-18) Creatinine 0.9 MG/DL (0.55-1.30) Estimat Glomerular Filtration Rate > 60 mL/min (>60) Glucose Level 255 MG/DL (74-106) Calcium Level 9.1 MG/DL (8.5-10.1) Magnesium Level 1.5 MG/DL (1.8-2.4) Troponin I 0.012 ng/mL (0.000-0.056) Height (Feet): 5 Height (Inches): 3.00 Weight (Pounds): 349 Objective Physical Exam General appearance: alert, cooperative, no distress, appears stated age Neck: supple, symmetrical, trachea midline, no adenopathy, thyroid Lungs: clear to auscultation bilaterally Heart: regular rate and rhythm, S1, S2 normal, no murmur, click, rub or gallop Abdomen: soft, non-tender but discomfort. minor lower abd ttp Extremities: extremities normal, atraumatic, no cyanosis or edema Pulses: 2+ and symmetric Skin: Skin color, texture, turgor normal. No rashes or lesions Neurologic: Grossly normal Kameron Green MD Sep 19, 2018 09:28
[2018-09-19] MEDS: Eliquis 5mg tablet ORAL SCH ×2 (09:29→17:35)
[2018-09-19] MEDS: Lisinopril 10mg tab ORAL SCH (09:29)
--- NOTE | 2018-09-19 11:46 | NUR ---
RD ASSESSMENT & RECOMMENDATIONS SEE CARE ACTIVITY FOR COMPLETE ASSESSMENT DAILY ESTIMATED NEEDS: Needs based on Morbidy obesity, cardiac, DM/ 81.5kg abw 18-20kcal/kg kcals/kg 0714-2334 total kcals 1-1.5 g protein/kg 79-119 g total protein 25-30 mL/kg 7599-3560 total fluid mLs NUTRITION DIAGNOSIS: * Morbid obesity R/T excessive energy intake [employer], inactive life style, lack of food and nutrition knowledge as evidenced by BMI of 66, possible unfavorable wt gain of 29 lbs in 1 year. * Altered nutrition related lab values R/T DM as evidenced by elev BGs (255, 417). CURRENT DIET:CCHO LOW PO DIET RECOMMENDATIONS: CCHO LOW, CARDIAC ADDITIONAL RECOMMENDATIONS: * Rec standing weight for accurate CBW * Weekly wt monitoring. * A1C for eval of glycemic control * Check lipid panel * Monitor lytes, replete as needed (low mag)
--- NOTE | 2018-09-19 11:47 | Surgery Progress Note ---
Surgery Progress Note Subjective Additional Comments no acute events comfortable stable VQ scan noted. NM cardiac noted labs improved no complaints Objective Last 24 Hour Vital Signs Date Time Temp Pulse Resp B/P (MAP) Pulse Ox O2 Delivery O2 Flow Rate FiO2 09/19/18 09:29 147/99 09/19/18 09:00 Room Air 09/19/18 08:00 76 09/19/18 08:00 97.3 79 20 147/99 (115) 97 09/19/18 04:00 92 09/19/18 04:00 97.3 85 18 116/61 (79) 95 09/19/18 00:00 97.9 94 18 122/64 (83) 97 09/19/18 00:00 89 09/18/18 21:46 91 20 93 Room Air 21 09/18/18 21:00 Room Air 09/18/18 20:00 97.7 87 18 122/72 (89) 95 09/18/18 20:00 94 09/18/18 16:30 91 09/18/18 16:30 96.8 94 20 131/64 (86) 96 09/18/18 12:15 98.2 72 22 158/92 (114) 98 09/18/18 12:00 66 I&O Intake and Output 09/18/18 09/19/18 19:00 07:00 Intake Total 1161.535 ml 1382.227 ml Balance 1161.535 ml 1382.227 ml Intake Oral 280 ml IV Total 881.535 ml 1382.227 ml # Voids 3 Cardiovascular: RSR Respiratory: clear Abdomen: soft, non-tender, present bowel sounds, non-distended Extremities: no tenderness, no cyanosis Laboratory Tests Test 09/18/18 13:25 09/19/18 06:54 Activated Partial Thromboplast Time 72 SEC (23-33) H 30 SEC (23-33) Plan Problems: (1) Abdominal pain Assessment & Plan: 47-year-old female who presented with chest discomfort, shortness of breath, history of DVT on Eliquis, recent lower extremity edema, abdominal discomfort. Abnormal LFTs. On examination patient complaining of discomfort in the lower portions of her abdomen. She is fairly obese and unfortunately from my understanding cannot have a CT scan at this time. Abdominal examination does not elicit any peritonitis, significant tenderness, rebound, guarding. She has a known history of hernia which is reducible. No acute general surgery intervention recommended. Okay for diet from surgical standpoint. Appreciate heme and cardio input. Trend labs. Abdominal ultrasound noted and okay. Thank you for allowing me to participate in patient' s care. We will continue with recommendations (2) Umbilical hernia Assessment & Plan: Historic ventral hernia. Nonobstructive. Abdominal exam does not elicit would be believe to be an obstruction. Patient passing flatus and just had a bowel movement. No nausea or vomiting. No acute surgical intervention recommended for patient's hernia. Will recommend elective outpatient follow-up for hernia repair. Vincenzo Jarvis Sep 19, 2018 11:47
[2018-09-19 12:00] VITALS: BP 149/99
--- NOTE | 2018-09-19 14:47 | NUR ---
CASE MANAGEMENT:REVIEW 09/19/18 SI: ABDOMINAL PAIN. DM. ANEMIA H/O PULMONARY EMBOLUS/DVT 97.3 79 20 147/99 97% ON RA IS: LISINOPRIL PO QD ELIQUIS PO BID IVF@75/HR : TELEMETRY STATUS
--- NOTE | 2018-09-19 15:00 | NUR ---
NURSE NOTES: Nurse report given by MARTY Duran. Patient's on semi-wasserman in bed. AOx4, no s/s of distress or SOB, denies pain. Bed at lowest position, break engaged and call light within reach. Will continue to monitor closely.
[2018-09-19] MEDS ORDERED: Tubing IV Secondary IV ONE (15:01)
--- NOTE | 2018-09-19 15:10 | NUR ---
HAND-OFF: Report given to Mechelle/RN, Patient is in stable condition, no acute distress/SOB noted. Endorsed plan of care.
[2018-09-19 16:00] VITALS: BP 155/99
--- NOTE | 2018-09-19 17:09 | Cardiac Electrophysiology PN ---
Assessment/Plan Assessment/Plan 1. Atypical chest pain. EKG is nonischemic. Ruled out for AL. Echo Nl EF. Stress test showed Small anteroseptal wall perfusion defect, which appears partially fixed, partially reversible, may indicate a small infarct with sanna-infarct ischemia but could also be an artifact of soft tissue attenuation 2. History of DVT and pulmonary embolism in May 2017. On Eliquis for more than a year. V/Q scan shows low probability of PE. Changed heparin drip to Eliquis 3. Hyperlipidemia, on Lipitor. 4. Morbid obesity. 5. Hypertension. Start Lisinopril 10 daily 6. Uncontrolled diabetes with glucose of 417. WD RN Subjective Subjective No CP or SOB. Stress test showed Small anteroseptal wall perfusion defect, which appears partially fixed, partially reversible, may indicate a small infarct with sanna-infarct ischemia but could also be an artifact of soft tissue attenuation Calculated post stress ejection fraction 73% Heparin changed to Eliquis Objective Last 24 Hour Vital Signs Date Time Temp Pulse Resp B/P (MAP) Pulse Ox O2 Delivery O2 Flow Rate FiO2 09/19/18 16:00 78 09/19/18 16:00 97.0 81 20 155/99 (117) 98 09/19/18 12:00 97.5 86 18 149/99 (116) 97 09/19/18 12:00 80 09/19/18 09:29 147/99 09/19/18 09:00 Room Air 09/19/18 08:00 76 09/19/18 08:00 97.3 79 20 147/99 (115) 97 09/19/18 04:00 92 09/19/18 04:00 97.3 85 18 116/61 (79) 95 09/19/18 00:00 97.9 94 18 122/64 (83) 97 09/19/18 00:00 89 09/18/18 21:46 91 20 93 Room Air 21 09/18/18 21:00 Room Air 09/18/18 20:00 97.7 87 18 122/72 (89) 95 09/18/18 20:00 94 Intake and Output 09/18/18 09/19/18 18:59 06:59 Intake Total 1161.535 ml 1382.227 ml Balance 1161.535 ml 1382.227 ml Intake Oral 280 ml IV Total 881.535 ml 1382.227 ml # Voids 3 Laboratory Tests Test 09/19/18 06:54 Activated Partial Thromboplast Time 30 SEC (23-33) Microbiology Date/Time Source Procedure Growth Status 09/17/18 08:20 Blood Blood Culture - Preliminary NO GROWTH AFTER 24 HOURS Resulted 09/17/18 08:20 Blood Blood Culture - Preliminary NO GROWTH AFTER 24 HOURS Resulted Objective HEAD AND NECK: No JVD. LUNGS: Clear. CARDIOVASCULAR: Regular S1 and S2 with no gallop or murmur. ABDOMEN: Soft. EXTREMITIES: Show bilateral 1+ pitting edema. Paulino Mcfarland MD Sep 19, 2018 17:09
--- NOTE | 2018-09-19 17:41 | Cardiology Report ---
APPROVED REPORT EKG Measurement Heart [id number] Normal sinus rhythm Possible Left atrial enlargement Borderline ECG
--- NOTE | 2018-09-19 18:31 | General Progress Note ---
Assessment/Plan Assessment/Plan: Pt presented with chest pain and SOB, admitted for poss PE and R/O ACS #Hx PE/ DVT - took AC for over 1 year off x 2 weeks due to insurance problems -Heparin GTT - discontinued -VQ scan - low probability -pulonary consult appreciated -Echo reviewed -cont eliquis #Chest pain r/o ACS -serial troponins and EKG - unremarkable -cardiology consult appreciated #HTN -cont lisinopril 10mg daily -hydralazine PRN #DM -cont ISS -Lantus 10units QHS started -carb controlled diet -CTM FSG DISPO: pending LELIA - narcisa dc to recoup once bed avail Code: Drying Tumbler Operator of note may not reflect time of encounter Subjective Date patient seen: Sep 19, 2018 Allergies: Coded Allergies: No Known Allergies (Unverified , 08/31/14) Subjective No acute overnight events, heparin changed to eliquis, dispo planning in progress, likely dc to recoup, pt with no complaints, states she feels better Objective Last 24 Hour Vital Signs Date Time Temp Pulse Resp B/P (MAP) Pulse Ox O2 Delivery O2 Flow Rate FiO2 09/19/18 16:00 78 09/19/18 16:00 97.0 81 20 155/99 (117) 98 09/19/18 12:00 97.5 86 18 149/99 (116) 97 09/19/18 12:00 80 09/19/18 09:29 147/99 09/19/18 09:00 Room Air 09/19/18 08:00 76 09/19/18 08:00 97.3 79 20 147/99 (115) 97 09/19/18 07:00 89 18 95 Room Air 21 09/19/18 04:00 92 09/19/18 04:00 97.3 85 18 116/61 (79) 95 09/19/18 00:00 97.9 94 18 122/64 (83) 97 09/19/18 00:00 89 09/18/18 21:46 91 20 93 Room Air 21 09/18/18 21:00 Room Air 09/18/18 20:00 97.7 87 18 122/72 (89) 95 09/18/18 20:00 94 Intake and Output 09/18/18 09/19/18 18:59 06:59 Intake Total 1161.535 ml 1382.227 ml Balance 1161.535 ml 1382.227 ml Intake Oral 280 ml IV Total 881.535 ml 1382.227 ml # Voids 3 Laboratory Tests 09/19/18 06:54: Activated Partial Thromboplast Time 30 Height (Feet): 5 Height (Inches): 3.00 Weight (Pounds): 349 Objective General appearance: alert, cooperative, no distress, appears stated age, obese Head: Normocephalic, without obvious abnormality, atraumatic Eyes: conjunctivae/corneas clear. PERRL, EOM's intact. Fundi benign Throat: Lips, mucosa, and tongue normal. Teeth and gums normal Neck: supple, symmetrical, trachea midline, no adenopathy, thyroid: not enlarged , symmetric, no tenderness/mass/nodules, no carotid bruit and no JVD Lungs: clear to auscultation bilaterally Heart: regular rate and rhythm, S1, S2 normal, no murmur, click, rub or gallop Abdomen: soft, non-tender. Bowel sounds normal. No masses, no organomegaly Extremities: extremities normal, atraumatic, no cyanosis or edema Pulses: 2+ and symmetric Skin: Skin color, texture, turgor normal. No rashes or lesions Neurologic: Grossly normal Nighat Cali MD Sep 19, 2018 18:31
--- NOTE | 2018-09-19 19:10 | NUR ---
HAND-OFF: Report given to MARTY Lemons. Patient's in stable condition, no s/s of distress or SOB. Denies pain. Plan of care endorsed. .
--- NOTE | 2018-09-19 19:20 | NUR ---
NURSE NOTES: Received report from MARTY Min. Patient in bed awake showing no signs of acute distress. Respiration even and non labored on room air. No sob noted. AOx4. IV on left UA 22g on NS @75cc/hr, patent and intact. Bed in lowest position, call light within reach and wheels locked. All needs attended and met. Will continue plan of care.
[2018-09-19 20:00] VITALS: BP 104/63
[2018-09-19] MEDS ORDERED: Ocean Nasal Spray 45ml NASAL PRN (20:30)
--- NOTE | 2018-09-19 21:03 | Neurology Progress Note ---
Interim History Interim History ROS Limited/Unobtainable: No Interim History vertigo resolved. now on eliquis Review of Systems All Systems: reviewed and negative except above Objective Physical Exam Last Vital Signs Date Time Temp Pulse Resp B/P (MAP) Pulse Ox O2 Delivery O2 Flow Rate FiO2 09/19/18 19:29 82 18 97 Room Air 21 09/19/18 16:00 97.0 155/99 (117) Laboratory Tests Test 09/19/18 06:54 Activated Partial Thromboplast Time 30 SEC (23-33) General: well developed, well nourished Neurologic Exam Mental Status: awake, alert, oriented x4, normal cognition, good mathematical skills, normal recent memory, normal remote memory, preserved visuospatial function Speech: normal speech, no dysarthia Cranial Nerve II: fundus normal, visual wells, no papilledema Cranial Nerves III, IV, : PERRLA, EOMI, pupils Cranial Nerve V: normal facial sensations, temporales function normal, masseters function normal, pterygoids function normal Cranial Nerve VII: no facial asymmetry, normal facial expressions Cranial Nerve VIII: normal hearing, no nystagmus Cranial Nerve IX: normal palate elevation, gag response Motor System: normal muscle tone, strength 5/5, no involuntary movement, no muscle wasting Objective ataxic Impression/Recommendations Problems: (1) Chest pain (2) Pedal edema (3) Hx of pulmonary embolus (4) Umbilical hernia (5) Abdominal pain (6) Abdominal pain (7) Constipation (8) Muscle strain (9) Cellulitis (10) Edema (11) Sinusitis (12) UTI (urinary tract infection) (13) Cellulitis and abscess of leg (14) Cellulitis and abscess of leg (15) ACS (acute coronary syndrome) (16) Elevated troponin (17) Knee contusion (18) Contusion of right elbow (19) Strain of tibialis anterior muscle (20) Cellulitis of left lower extremity (21) DM2 (diabetes mellitus, type 2) Diagnostic Impression Vertigo likely peripheral rule out infectious metabolic ok to cont anticoagulation No need for brain imagin pt ot Ismael Lopez MD Sep 19, 2018 21:02
[2018-09-19] MEDS: Atorvastatin 20mg tab ORAL SCH (21:09)
[2018-09-19] MEDS: Levemir Flexpen SUBQ SCH (21:11)
[2018-09-20] VITALS: BP 109/66
[2018-09-20 04:00] VITALS: BP 122/72
[2018-09-20] MEDS: NovoLOG Insulin Flexpen SUBQ SCH ×2 (05:53→11:57)
--- NOTE | 2018-09-20 07:14 | NUR ---
HAND-OFF: Report given to MARTY Garzon.
--- NOTE | 2018-09-20 07:15 | NUR ---
NURSE NOTES: Received pt from MARTY Sifuentes. Patient is resting in stable condition. Pt is A/Ox4. operations controller is in placed, IV site intact, asymptomatic and patent; currently running at RX dose. Bed is in the lowest position with two side rails up and locked. patient be able to ambulate to bathroom.Call light and bed side table within reach. No signs and symptoms of acute distress noted at this time. Will continue plan of care.
[2018-09-20 07:59] VITALS: BP 144/68
[2018-09-20 08:37] LABS: BASOPHILS % (AUTO) 0.9 % (0.0-2.0); EOSINOPHILS % (AUTO) 2.1 % (0.0-3.0); HEMATOCRIT 39.3 % (37.0-47.0); LYMPHOCYTES % (AUTO) 36.4 % (20.0-45.0); MEAN CORPUSCULAR VOLUME 83 FL (80-99); MONOCYTES % (AUTO) 7.3 % (1.0-10.0); NEUTROPHILS % (AUTO) 53.3 % (45.0-75.0); PLATELET COUNT 160 K/UL (150-450); RED BLOOD COUNT 4.74 M/UL (4.20-5.40); RED CELL DISTRIBUTION WIDTH 15.4 % (11.6-14.8)
[2018-09-20 08:47] LABS: ANION GAP 6 mmol/L (5-15); BLOOD UREA NITROGEN 10 mg/dL (7-18); CALCIUM 9.5 MG/DL (8.5-10.1); CARBON DIOXIDE 28 MMOL/L (21-32); CHLORIDE 104 MMOL/L (98-107); SODIUM 138 MMOL/L (136-145)
[2018-09-20] MEDS: Lisinopril 10mg tab ORAL SCH (08:47)
[2018-09-20] MEDS: Eliquis 5mg tablet ORAL SCH (08:47)
[2018-09-20] MEDS ORDERED: ZESTRIL10 M1 ORAL (10:53)
[2018-09-20] MEDS ORDERED: ELIQUIS5 MG PO (10:53)
--- NOTE | 2018-09-20 10:54 | Discharge Instructions ---
Discharge Instructions Discharge Instructions Follow up with: pcp Call MD/Return to Hospital if: intractable vomiting, intractable pain Diet: diabetic calorie control Resume Normal Activity?: Yes Activity: resume normal activities For Congestive Heart Failure Reminder Report to your physician any weight gain of 5 pounds or more in one week. Nighat Cali MD Sep 20, 2018 10:54
--- NOTE | 2018-09-20 11:11 | NUR ---
HOMELESS COORDINATOR HC spoke with patient and patient is alert and oriented. Patient does have a contact number . Patient states she is chronically homeless and does not want resources for correction. Patient states she recently applied for permanent housing. Patient states she has been homeless on and off for 15yrs but has been permanently homeless for 2-3years. Patient contributes his homelessness to the cost of living. Patient does have a supervisor personnel clerks; Miguel Corral ( daughter) [phone]. 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 Patient states she makes around $2000 monthly but has to pay $1000 for the rental program with [employer] a month. Patient state she is willing to pay for a housing program if she is able to have her own room. HC will provide resources for program. Patient states she is not using any kind of drugs, Patient labs were all negative. Patient denies any mental health issues but states she suffers from depression and hearing voices. Patient refuses resources for mental health resources. Patient states her Medi-jimbo just got reinstated and would like resources to make her own follow-up appointment. Patient states she doesn't want to return to pervious living situation upon discharge. Patient states she spoke with LELIA Littlejohn) and SW mentioned and told her she would be going to recuperative care or receive a voucher for a hotel. Patient states she could also live with her son, due to the son's roommate moving out but the room wouldn't be available for about a week. Will follow-up with LELIA and CM. Patient continues to require medical intervention. Will continue to monitor and assist as needed.
[2018-09-20 12:00] VITALS: BP 118/64
--- NOTE | 2018-09-20 12:15 | Pulmonology Progress Note ---
Assessment/Plan Problems: (1) Hx of pulmonary embolus (2) ALISIA (obstructive sleep apnea) (3) Morbid obesity (4) Chest pain (5) Medical non-compliance (6) DM2 (diabetes mellitus, type 2) Assessment/Plan Continue Eliquis BID Consider decrease to lower dose in the future Outpatient hypercoag eval Weight loss, diet and exercise discussed Needs an outpatient sleep study, previously Dx'd with ALISIA but lost device ABG not done Subjective Allergies: Coded Allergies: No Known Allergies (Unverified , 08/31/14) Subjective AFVSS on RA No CP no SOB no FC Objective Last 24 Hour Vital Signs Date Time Temp Pulse Resp B/P (MAP) Pulse Ox O2 Delivery O2 Flow Rate FiO2 09/20/18 11:57 68 09/20/18 09:00 Room Air 09/20/18 08:47 144/68 09/20/18 07:59 98.3 77 20 144/68 (93) 98 09/20/18 07:45 120 09/20/18 07:20 80 20 97 Room Air 21 09/20/18 04:00 97.7 85 20 122/72 (89) 93 09/20/18 04:00 78 09/20/18 00:00 97.4 78 18 109/66 (80) 96 09/20/18 00:00 87 09/19/18 21:00 Room Air 09/19/18 20:00 97.9 76 18 104/63 (77) 94 09/19/18 20:00 81 09/19/18 19:29 82 18 97 Room Air 21 09/19/18 16:00 78 09/19/18 16:00 97.0 81 20 155/99 (117) 98 Intake and Output 09/19/18 09/20/18 19:00 07:00 Intake Total 480 ml 792.5 ml Balance 480 ml 792.5 ml Intake Oral 480 ml 140 ml IV Total 652.5 ml # Voids 3 General Appearance: WD/WN, other - obese female HEENT: normocephalic, atraumatic, anicteric, mucous membranes moist Respiratory/Chest: chest wall non-tender, lungs clear, normal breath sounds Cardiovascular: normal peripheral pulses, normal rate, regular rhythm Abdomen: normal bowel sounds, soft, non tender, no organomegaly, non distended , no mass Extremities: no cyanosis, no clubbing, no edema Laboratory Tests 09/20/18 08:20: White Blood Count 8.0, Red Blood Count 4.74, Hemoglobin 12.0, Hematocrit 39.3, Mean Corpuscular Volume 83, Mean Corpuscular Hemoglobin 25.3L, Mean Corpuscular Hemoglobin Concent 30.5L, Red Cell Distribution Width 15.4H, Platelet Count 160 , Mean Platelet Volume 9.0, Neutrophils (%) (Auto) 53.3, Lymphocytes (%) (Auto) 36.4, Monocytes (%) (Auto) 7.3, Eosinophils (%) (Auto) 2.1, Basophils (%) (Auto ) 0.9, Sodium Level 138, Potassium Level 4.0, Chloride Level 104, Carbon Dioxide Level 28, Anion Gap 6, Blood Urea Nitrogen 10, Creatinine 1.0, Estimat Glomerular Filtration Rate > 60, Glucose Level 240H, Calcium Level 9.5 Current Medications Medications (Trade) Dose Ordered Sig/Milo Route PRN Reason Start Time Stop Time Status Last Admin Dose Admin Acetaminophen (Tylenol) 650 mg Q4H PRN ORAL Mild Pain (Pain Scale 1-3) 09/17/18 10:00 10/17/18 09:59 Acetaminophen/ Hydrocodone Bitart ([place] 5/325) 1 tab Q4H PRN ORAL Moderate Pain (Pain Scale 4-6) 09/17/18 10:00 09/24/18 09:59 Acetaminophen/ Hydrocodone Bitart ([place] 5/325) 2 tab Q4H PRN ORAL Severe Pain (Pain Scale 7-10) 09/17/18 10:00 09/24/18 09:59 09/17/18 21:40 Albuterol/ Ipratropium (Albuterol/ Ipratropium) 3 ml Q6H PRN HHN Shortness of Breath 09/17/18 10:00 09/22/18 09:59 Apixaban (Eliquis) 5 mg BID ORAL 09/19/18 09:00 10/19/18 08:59 09/20/18 08:47 Atorvastatin Calcium (Lipitor) 20 mg BEDTIME ORAL 09/17/18 21:00 10/17/18 20:59 09/19/18 21:09 Bisacodyl (Dulcolax) 10 mg DAILYPRN PRN RECTAL Constipation 09/17/18 10:00 10/17/18 09:59 Dextrose (Dextrose 50%) 25 ml Q30M PRN IV Hypoglycemia 09/17/18 10:00 10/17/18 09:59 Dextrose (Dextrose 50%) 25 ml Q30M PRN IV Hypoglycemia 09/18/18 18:00 10/18/18 17:59 Dextrose (Dextrose 50%) 50 ml Q30M PRN IV Hypoglycemia 09/17/18 10:00 10/17/18 09:59 Dextrose (Dextrose 50%) 50 ml Q30M PRN IV Hypoglycemia 09/18/18 18:00 10/18/18 17:59 Diphenhydramine HCl (Benadryl) 25 mg Q6H PRN ORAL Itching/Pruritis 09/17/18 10:00 10/17/18 09:59 Hydralazine HCl (Apresoline) 10 mg Q6H PRN IV For High Blood Pressure 09/18/18 20:00 10/18/18 19:59 Insulin Aspart (NovoLOG) BEFORE MEALS AND HS SUBQ 09/18/18 21:00 10/18/18 20:59 09/20/18 11:57 Insulin Detemir (Levemir) 10 units BEDTIME SUBQ 09/18/18 21:00 10/18/18 20:59 09/19/18 21:11 Lisinopril (Zestril) 10 mg DAILY ORAL 09/19/18 09:00 10/19/18 08:59 09/20/18 08:47 Lorazepam (Ativan 2mg/ml 1ml) 0.5 mg Q4H PRN IV For Anxiety 09/17/18 10:00 09/24/18 09:59 Magnesium Hydroxide (Mom) 30 ml HSPRN PRN ORAL Constipation 09/17/18 10:00 10/17/18 09:59 Ondansetron HCl (Zofran) 4 mg Q6H PRN IVP Nausea & Vomiting 09/17/18 10:00 10/17/18 09:59 Sodium Chloride 1,000 ml @ 75 mls/hr [id number] IVLG 09/17/18 10:45 10/17/18 10:44 09/19/18 21:18 Sodium Chloride ([place] Nasal [place]) 1 spray Q4H PRN NASAL Nasal congestion 09/19/18 20:30 10/19/18 20:29 09/19/18 21:09 Temazepam (Restoril) 15 mg HSPRN PRN ORAL Insomnia 09/17/18 10:00 09/24/18 09:59 Trell Sands MD Sep 20, 2018 12:15
--- NOTE | 2018-09-20 13:35 | Hematology/Onc Progress Note ---
Assessment/Plan Assessment/Plan Assessment/Plan # Pulmonary embolus/DVT 2018 has been off anticoag x 2 week --> too big for CTA --> consider v/q scan --> as per pulm eval --> consider switch to noac as when more stable (has taken blood thinner since 2018) --> outpatient hypercoag w/u # Anemia of chronic disease --> hgb trend 11.9-->11.5-->12 --> hgb goal >7, transfuse prn --> no evidence of hemolysis noted --> trend cbc as needed # Abdominal pain. us is negative for stones and obstructive process --> no surg acute intervention --> gi eval on prn basis # Historic ventral hernia. Nonobstructive. Abdominal exam does not elicit would be believe to be an obstruction. --> electrive op surgery prn # Chest pain --> r/o acs # History of pedal edema --> diuresis as needed basis # Type 2 Dm --> accuchecks qac and qhs --> a1c goal <7.5 Greatly appreciate consultation. Subjective Hematologic/Lymphatic: Reports: anemia Allergies: Coded Allergies: No Known Allergies (Unverified , 08/31/14) All Systems: reviewed and negative except above Subjective 09/19/18: no events, no bleeding, have d/c heparin gtt, back on apixaban 09/20/18: awake and alert, no overnight events, vs stable, on room air, Objective Objective Current Medications Medications (Trade) Dose Ordered Sig/Milo Route PRN Reason Start Time Stop Time Status Last Admin Dose Admin Acetaminophen (Tylenol) 650 mg Q4H PRN ORAL Mild Pain (Pain Scale 1-3) 09/17/18 10:00 10/17/18 09:59 Acetaminophen/ Hydrocodone Bitart (Show Low 5/325) 1 tab Q4H PRN ORAL Moderate Pain (Pain Scale 4-6) 09/17/18 10:00 09/24/18 09:59 Acetaminophen/ Hydrocodone Bitart (Show Low 5/325) 2 tab Q4H PRN ORAL Severe Pain (Pain Scale 7-10) 09/17/18 10:00 09/24/18 09:59 09/17/18 21:40 Albuterol/ Ipratropium (Albuterol/ Ipratropium) 3 ml Q6H PRN HHN Shortness of Breath 09/17/18 10:00 09/22/18 09:59 Apixaban (Eliquis) 5 mg BID ORAL 09/19/18 09:00 10/19/18 08:59 09/20/18 08:47 Atorvastatin Calcium (Lipitor) 20 mg BEDTIME ORAL 09/17/18 21:00 10/17/18 20:59 09/19/18 21:09 Bisacodyl (Dulcolax) 10 mg DAILYPRN PRN RECTAL Constipation 09/17/18 10:00 10/17/18 09:59 Dextrose (Dextrose 50%) 25 ml Q30M PRN IV Hypoglycemia 09/17/18 10:00 10/17/18 09:59 Dextrose (Dextrose 50%) 25 ml Q30M PRN IV Hypoglycemia 09/18/18 18:00 10/18/18 17:59 Dextrose (Dextrose 50%) 50 ml Q30M PRN IV Hypoglycemia 09/17/18 10:00 10/17/18 09:59 Dextrose (Dextrose 50%) 50 ml Q30M PRN IV Hypoglycemia 09/18/18 18:00 10/18/18 17:59 Diphenhydramine HCl (Benadryl) 25 mg Q6H PRN ORAL Itching/Pruritis 09/17/18 10:00 10/17/18 09:59 Hydralazine HCl (Apresoline) 10 mg Q6H PRN IV For High Blood Pressure 09/18/18 20:00 10/18/18 19:59 Insulin Aspart (NovoLOG) BEFORE MEALS AND HS SUBQ 09/18/18 21:00 10/18/18 20:59 09/20/18 11:57 Insulin Detemir (Levemir) 10 units BEDTIME SUBQ 09/18/18 21:00 10/18/18 20:59 09/19/18 21:11 Lisinopril (Zestril) 10 mg DAILY ORAL 09/19/18 09:00 10/19/18 08:59 09/20/18 08:47 Lorazepam (Ativan 2mg/ml 1ml) 0.5 mg Q4H PRN IV For Anxiety 09/17/18 10:00 09/24/18 09:59 Magnesium Hydroxide (Mom) 30 ml HSPRN PRN ORAL Constipation 09/17/18 10:00 10/17/18 09:59 Ondansetron HCl (Zofran) 4 mg Q6H PRN IVP Nausea & Vomiting 09/17/18 10:00 10/17/18 09:59 Sodium Chloride 1,000 ml @ 75 mls/hr [id number] IVLG 09/17/18 10:45 10/17/18 10:44 09/19/18 21:18 Sodium Chloride ([place] Nasal [place]) 1 spray Q4H PRN NASAL Nasal congestion 09/19/18 20:30 10/19/18 20:29 09/19/18 21:09 Temazepam (Restoril) 15 mg HSPRN PRN ORAL Insomnia 09/17/18 10:00 09/24/18 09:59 Last 24 Hour Vital Signs Date Time Temp Pulse Resp B/P (MAP) Pulse Ox O2 Delivery O2 Flow Rate FiO2 09/20/18 12:00 98.6 81 18 118/64 (82) 98 09/20/18 11:57 68 09/20/18 09:00 Room Air 09/20/18 08:47 144/68 09/20/18 07:59 98.3 77 20 144/68 (93) 98 09/20/18 07:45 120 09/20/18 07:20 80 20 97 Room Air 21 09/20/18 04:00 97.7 85 20 122/72 (89) 93 09/20/18 04:00 78 09/20/18 00:00 97.4 78 18 109/66 (80) 96 09/20/18 00:00 87 09/19/18 21:00 Room Air 09/19/18 20:00 97.9 76 18 104/63 (77) 94 09/19/18 20:00 81 09/19/18 19:29 82 18 97 Room Air 21 09/19/18 16:00 78 09/19/18 16:00 97.0 81 20 155/99 (117) 98 09/19/18 12:00 97.5 86 18 149/99 (116) 97 09/19/18 12:00 80 09/19/18 09:29 147/99 09/19/18 09:00 Room Air 09/19/18 08:00 76 09/19/18 08:00 97.3 79 20 147/99 (115) 97 09/19/18 07:00 89 18 95 Room Air 21 09/19/18 04:00 92 09/19/18 04:00 97.3 85 18 116/61 (79) 95 09/19/18 00:00 97.9 94 18 122/64 (83) 97 09/19/18 00:00 89 09/18/18 21:46 91 20 93 Room Air 21 09/18/18 21:00 Room Air 09/18/18 20:00 97.7 87 18 122/72 (89) 95 09/18/18 20:00 94 09/18/18 16:30 91 09/18/18 16:30 96.8 94 20 131/64 (86) 96 Intake and Output 09/19/18 09/20/18 19:00 07:00 Intake Total 480 ml 792.5 ml Balance 480 ml 792.5 ml Intake Oral 480 ml 140 ml IV Total 652.5 ml # Voids 3 Labs Test 09/17/18 14:20 09/17/18 21:15 09/18/18 03:45 09/18/18 13:25 Activated Partial Thromboplast Time 46 SEC (23-33) 79 SEC (23-33) 97 SEC (23-33) 72 SEC (23-33) Troponin I 0.000 ng/mL (0.000-0.056) 0.018 ng/mL (0.000-0.056) 0.012 ng/mL (0.000-0.056) White Blood Count 7.9 K/UL (4.8-10.8) Red Blood Count 4.51 M/UL (4.20-5.40) Hemoglobin 11.5 G/DL (12.0-16.0) Hematocrit 37.7 % (37.0-47.0) Mean Corpuscular Volume 84 FL (80-99) Mean Corpuscular Hemoglobin 25.6 PG (27.0-31.0) Mean Corpuscular Hemoglobin Concent 30.6 G/DL (32.0-36.0) Red Cell Distribution Width 15.4 % (11.6-14.8) Platelet Count 166 K/UL (150-450) Mean Platelet Volume 11.1 FL (6.5-10.1) Neutrophils (%) (Auto) 50.3 % (45.0-75.0) Lymphocytes (%) (Auto) 40.2 % (20.0-45.0) Monocytes (%) (Auto) 6.4 % (1.0-10.0) Eosinophils (%) (Auto) 2.4 % (0.0-3.0) Basophils (%) (Auto) 0.6 % (0.0-2.0) Sodium Level 136 MMOL/L (136-145) Potassium Level 3.9 MMOL/L (3.5-5.1) Chloride Level 99 MMOL/L (98-107) Carbon Dioxide Level 26 MMOL/L (21-32) Anion Gap 11 mmol/L (5-15) Blood Urea Nitrogen 9 mg/dL (7-18) Creatinine 0.9 MG/DL (0.55-1.30) Estimat Glomerular Filtration Rate > 60 mL/min (>60) Glucose Level 255 MG/DL (74-106) Calcium Level 9.1 MG/DL (8.5-10.1) Magnesium Level 1.5 MG/DL (1.8-2.4) Test 09/19/18 06:54 09/20/18 08:20 Activated Partial Thromboplast Time 30 SEC (23-33) White Blood Count 8.0 K/UL (4.8-10.8) Red Blood Count 4.74 M/UL (4.20-5.40) Hemoglobin 12.0 G/DL (12.0-16.0) Hematocrit 39.3 % (37.0-47.0) Mean Corpuscular Volume 83 FL (80-99) Mean Corpuscular Hemoglobin 25.3 PG (27.0-31.0) Mean Corpuscular Hemoglobin Concent 30.5 G/DL (32.0-36.0) Red Cell Distribution Width 15.4 % (11.6-14.8) Platelet Count 160 K/UL (150-450) Mean Platelet Volume 9.0 FL (6.5-10.1) Neutrophils (%) (Auto) 53.3 % (45.0-75.0) Lymphocytes (%) (Auto) 36.4 % (20.0-45.0) Monocytes (%) (Auto) 7.3 % (1.0-10.0) Eosinophils (%) (Auto) 2.1 % (0.0-3.0) Basophils (%) (Auto) 0.9 % (0.0-2.0) Sodium Level 138 MMOL/L (136-145) Potassium Level 4.0 MMOL/L (3.5-5.1) Chloride Level 104 MMOL/L (98-107) Carbon Dioxide Level 28 MMOL/L (21-32) Anion Gap 6 mmol/L (5-15) Blood Urea Nitrogen 10 mg/dL (7-18) Creatinine 1.0 MG/DL (0.55-1.30) Estimat Glomerular Filtration Rate > 60 mL/min (>60) Glucose Level 240 MG/DL (74-106) Calcium Level 9.5 MG/DL (8.5-10.1) Height (Feet): 5 Height (Inches): 3.00 Weight (Pounds): 368 Objective Physical Exam General appearance: alert, cooperative, no distress, appears stated age Neck: supple, symmetrical, trachea midline, no adenopathy, thyroid Lungs: clear to auscultation bilaterally Heart: regular rate and rhythm, S1, S2 normal, no murmur, click, rub or gallop Abdomen: soft, non-tender but discomfort. minor lower abd ttp Extremities: extremities normal, atraumatic, no cyanosis or edema Pulses: 2+ and symmetric Skin: Skin color, texture, turgor normal. No rashes or lesions Neurologic: Grossly normal Kameron Green MD Sep 20, 2018 13:35
--- NOTE | 2018-09-20 13:36 | NUR ---
SS note This Sw met with patient who plans to return to her car upon discharge (car parked outside of this Hospital), then planning to stay with her son within one week (son currently has someone else staying with him). Patient explains she has all the information to apply for Housing. No other needs or concerns present; patient remains independent with ADLs/ambulation. Homeless Microwave Remote Sensing Scientist also following and providing patient with additional information.
--- NOTE | 2018-09-20 13:47 | Surgery Progress Note ---
Surgery Progress Note Subjective Symptoms: improved, tolerating diet, passing flatus, pain decreased Objective Last 24 Hour Vital Signs Date Time Temp Pulse Resp B/P (MAP) Pulse Ox O2 Delivery O2 Flow Rate FiO2 09/20/18 12:00 98.6 81 18 118/64 (82) 98 09/20/18 11:57 68 09/20/18 09:00 Room Air 09/20/18 08:47 144/68 09/20/18 07:59 98.3 77 20 144/68 (93) 98 09/20/18 07:45 120 09/20/18 07:20 80 20 97 Room Air 21 09/20/18 04:00 97.7 85 20 122/72 (89) 93 09/20/18 04:00 78 09/20/18 00:00 97.4 78 18 109/66 (80) 96 09/20/18 00:00 87 09/19/18 21:00 Room Air 09/19/18 20:00 97.9 76 18 104/63 (77) 94 09/19/18 20:00 81 09/19/18 19:29 82 18 97 Room Air 21 09/19/18 16:00 78 09/19/18 16:00 97.0 81 20 155/99 (117) 98 I&O Intake and Output 09/19/18 09/20/18 19:00 07:00 Intake Total 480 ml 792.5 ml Balance 480 ml 792.5 ml Intake Oral 480 ml 140 ml IV Total 652.5 ml # Voids 3 Cardiovascular: RSR Respiratory: clear Abdomen: soft, flat, non-tender, non-distended Extremities: no tenderness, no cyanosis Laboratory Tests Test 09/20/18 08:20 White Blood Count 8.0 K/UL (4.8-10.8) Red Blood Count 4.74 M/UL (4.20-5.40) Hemoglobin 12.0 G/DL (12.0-16.0) Hematocrit 39.3 % (37.0-47.0) Mean Corpuscular Volume 83 FL (80-99) Mean Corpuscular Hemoglobin 25.3 PG (27.0-31.0) L Mean Corpuscular Hemoglobin Concent 30.5 G/DL (32.0-36.0) L Red Cell Distribution Width 15.4 % (11.6-14.8) H Platelet Count 160 K/UL (150-450) Mean Platelet Volume 9.0 FL (6.5-10.1) Neutrophils (%) (Auto) 53.3 % (45.0-75.0) Lymphocytes (%) (Auto) 36.4 % (20.0-45.0) Monocytes (%) (Auto) 7.3 % (1.0-10.0) Eosinophils (%) (Auto) 2.1 % (0.0-3.0) Basophils (%) (Auto) 0.9 % (0.0-2.0) Sodium Level 138 MMOL/L (136-145) Potassium Level 4.0 MMOL/L (3.5-5.1) Chloride Level 104 MMOL/L (98-107) Carbon Dioxide Level 28 MMOL/L (21-32) Anion Gap 6 mmol/L (5-15) Blood Urea Nitrogen 10 mg/dL (7-18) Creatinine 1.0 MG/DL (0.55-1.30) Estimat Glomerular Filtration Rate > 60 mL/min (>60) Glucose Level 240 MG/DL (74-106) H Calcium Level 9.5 MG/DL (8.5-10.1) Plan Problems: (1) Abdominal pain Assessment & Plan: 47-year-old female who presented with chest discomfort, shortness of breath, history of DVT on Eliquis, recent lower extremity edema, abdominal discomfort. Abnormal LFTs. On examination patient complaining of discomfort in the lower portions of her abdomen. She is fairly obese and unfortunately from my understanding cannot have a CT scan at this time. Abdominal examination does not elicit any peritonitis, significant tenderness, rebound, guarding. She has a known history of hernia which is reducible. No acute general surgery intervention recommended. Okay for diet from surgical standpoint. Appreciate heme and cardio input. Trend labs. Abdominal ultrasound noted and okay. Thank you for allowing me to participate in patient' s care. We will continue with recommendations (2) Umbilical hernia Assessment & Plan: Historic ventral hernia. Nonobstructive. Abdominal exam does not elicit would be believe to be an obstruction. Patient passing flatus and just had a bowel movement. No nausea or vomiting. No acute surgical intervention recommended for patient's hernia. Will recommend elective outpatient follow-up for hernia repair. Vincenzo Jarvis Sep 20, 2018 13:47
--- NOTE | 2018-09-20 15:10 | NUR ---
NURSE NOTES: Patient discharged home- self care per 's order. Patient is in stable condition and received all her belongings. Patient will go to her car, then after will go to her son's home. All discharge instructions explained to patient verbalizes understanding. Heart monitor removed and returned to r and d lab technician. Patient is waiting for pharmacy to drop off her medication ( prescribed that) so she can leave the hospital.
--- NOTE | 2018-09-20 15:30 | NUR ---
NURSE NOTES: Pharmacy dropped off the medications, RN delivered the medications to the patient.
--- NOTE | 2018-09-20 15:46 | NUR ---
HOMELESS COORDINATOR HC provided resources; [facility] Parking Safe Resources Housing Placement Resources for person with income
--- NOTE | 2018-09-20 15:54 | Cardiac Electrophysiology PN ---
Assessment/Plan Assessment/Plan 1. Atypical chest pain. EKG is nonischemic. Ruled out for OR. Echo Nl EF. Stress test showed Small anteroseptal wall perfusion defect, which appears partially fixed, partially reversible, may indicate a small infarct with sanna-infarct ischemia but could also be an artifact of soft tissue attenuation 2. History of DVT and pulmonary embolism in May 2017. On Eliquis. V/Q scan shows low probability of PE. is 3. Hyperlipidemia, on Lipitor. 4. Morbid obesity. 5. Hypertension. On Lisinopril 10 daily 6. Uncontrolled diabetes with glucose of 417. GENO RN DC today Subjective Subjective No CP or SOB. Stress test showed Small anteroseptal wall perfusion defect, which appears partially fixed, partially reversible, may indicate a small infarct with sanna-infarct ischemia but could also be an artifact of soft tissue attenuation Calculated post stress ejection fraction 73% Awaiting DC Objective Last 24 Hour Vital Signs Date Time Temp Pulse Resp B/P (MAP) Pulse Ox O2 Delivery O2 Flow Rate FiO2 09/20/18 12:00 98.6 81 18 118/64 (82) 98 09/20/18 11:57 68 09/20/18 09:00 Room Air 09/20/18 08:47 144/68 09/20/18 07:59 98.3 77 20 144/68 (93) 98 09/20/18 07:45 120 09/20/18 07:20 80 20 97 Room Air 21 09/20/18 04:00 97.7 85 20 122/72 (89) 93 09/20/18 04:00 78 09/20/18 00:00 97.4 78 18 109/66 (80) 96 09/20/18 00:00 87 09/19/18 21:00 Room Air 09/19/18 20:00 97.9 76 18 104/63 (77) 94 09/19/18 20:00 81 09/19/18 19:29 82 18 97 Room Air 21 09/19/18 16:00 78 09/19/18 16:00 97.0 81 20 155/99 (117) 98 Intake and Output 09/19/18 09/20/18 19:00 07:00 Intake Total 480 ml 792.5 ml Balance 480 ml 792.5 ml Intake Oral 480 ml 140 ml IV Total 652.5 ml # Voids 3 Laboratory Tests Test 09/20/18 08:20 White Blood Count 8.0 K/UL (4.8-10.8) Red Blood Count 4.74 M/UL (4.20-5.40) Hemoglobin 12.0 G/DL (12.0-16.0) Hematocrit 39.3 % (37.0-47.0) Mean Corpuscular Volume 83 FL (80-99) Mean Corpuscular Hemoglobin 25.3 PG (27.0-31.0) L Mean Corpuscular Hemoglobin Concent 30.5 G/DL (32.0-36.0) L Red Cell Distribution Width 15.4 % (11.6-14.8) H Platelet Count 160 K/UL (150-450) Mean Platelet Volume 9.0 FL (6.5-10.1) Neutrophils (%) (Auto) 53.3 % (45.0-75.0) Lymphocytes (%) (Auto) 36.4 % (20.0-45.0) Monocytes (%) (Auto) 7.3 % (1.0-10.0) Eosinophils (%) (Auto) 2.1 % (0.0-3.0) Basophils (%) (Auto) 0.9 % (0.0-2.0) Sodium Level 138 MMOL/L (136-145) Potassium Level 4.0 MMOL/L (3.5-5.1) Chloride Level 104 MMOL/L (98-107) Carbon Dioxide Level 28 MMOL/L (21-32) Anion Gap 6 mmol/L (5-15) Blood Urea Nitrogen 10 mg/dL (7-18) Creatinine 1.0 MG/DL (0.55-1.30) Estimat Glomerular Filtration Rate > 60 mL/min (>60) Glucose Level 240 MG/DL (74-106) H Calcium Level 9.5 MG/DL (8.5-10.1) Objective HEAD AND NECK: No JVD. LUNGS: Clear. CARDIOVASCULAR: Regular S1 and S2 with no gallop or murmur. ABDOMEN: Soft. EXTREMITIES: Show bilateral 1+ pitting edema. Paulino Mcfarland MD Sep 20, 2018 15:54
--- NOTE | 2018-09-20 16:11 | NUR ---
NURSE NOTES: Pt recieved discharge order, pt made aware, ID and IV removed, aftercare plan and med recon given, pt Ox4, has a plan to stay with her son, Medication was dropped off and pt was instructed on usage and side effects, pt was taken down to lobby with DRYING TUNNEL OPERATOR and family present. Pt denied pain and was dressed calm and cooperative at time of discharge.
--- NOTE | 2018-09-20 18:27 | Discharge Summary ---
Discharge Summary Hospital Course Date of Admission Sep 17, 2018 at 08:13 Date of Discharge Sep 20, 2018 at 16:16 Admitting Diagnosis ACUTE CORONARY SYNDROME, CHEST PAIN HPI Leidy Corral is a 47 year old female who was admitted on Sep 17, 2018 at 08:13 for Acute Coronary Syndrome, Chest Pain Hospital Course Pt presented with chest pain and SOB, admitted for poss PE and R/O ACS #Hx PE/ DVT - took AC for over 1 year off x 2 weeks due to insurance problems -Heparin GTT - discontinued - eliquis restarted - cont on discharge - follow up with PCP to determine when to stop #Chest pain r/o ACS -serial troponins and EKG - unremarkable #HTN -cont lisinopril 10mg daily #DM -cont metformin -follow up with PCP Discharge Discharge Disposition Patient was discharged to Discharge Instructions Discharge Instructions Follow up with: pcp Call MD/Return to Hospital if: intractable vomiting, intractable pain Activity: resume normal activities Nighat Cali MD Sep 20, 2018 18:27
== END 2018-09-20 16:16 | disposition home or self-care (01) | DRG 198 ==
LOC: EMR 07:10 → 2W 08:13 → EDBEDREQ 09:14 → 2E 09-18 12:00
DX: I24.9 Acute ischemic heart disease, unspecified (principal); R07.89 Other chest pain; I26.99 Other pulmonary embolism without acute cor pulmonale; E66.01 Morbid (severe) obesity due to excess calories; K44.9 Diaphragmatic hernia without obstruction or gangrene; Z68.44 Body mass index [BMI] 60.0-69.9, adult; Z86.711 Personal history of pulmonary embolism; Z86.718 Personal history of other venous thrombosis and embolism; E11.65 Type 2 diabetes mellitus with hyperglycemia; Z79.01 Long term (current) use of anticoagulants; Z79.84 Long term (current) use of oral hypoglycemic drugs; E78.5 Hyperlipidemia, unspecified; Z91.14 Patient's other noncompliance with medication regimen; G47.33 Obstructive sleep apnea (adult) (pediatric); D63.8 Anemia in other chronic diseases classified elsewhere; R60.9 Edema, unspecified; R10.9 Unspecified abdominal pain; K42.9 Umbilical hernia without obstruction or gangrene
CPT/HCPCS: 36415; 71045; 76700; 78452; 78579; 78580; 80048; 80053; 80307; 82550; 82553; 82962; 83735; 83880; 84484; 85025; 85379; 85730; 86850; 86900; 86901; 87040; 93005; 93017; 93306; 93970; 94664; 96374; 96375; 99285; A9503; J1815; J2785; S5561

== ENCOUNTER 2019-12-17 21:23 | Emergency (ER) | payer MEDICAID ==
[~2019-12-17] VITALS: Ht 160 cm; Wt 156.5 kg
[~2019-12-17 21:23] MED LIST changes: +ZESTRIL10 M1 ORAL
[2019-12-17 21:50] VITALS: BP 118/75
[2019-12-17] MEDS ORDERED: HYDROcodone/Acetamin 5/325 tab ORAL ONE (22:00)
[2019-12-17] MEDS ORDERED: HYDROcodone/Acetamin 5/325 tab ONE (22:02)
--- NOTE | 2019-12-17 22:02 | Emergency Room Report ---
History of Present Illness General Chief Complaint: Pain Source: Patient Present Illness HPI This is a 49-year-old female with a history of pulmonary embolism and diabetes. She presents with complaint of left lower quadrant pain. Onset the last 4 days. Pain radiating to her thigh area. Worse with movement. Better with rest. Also with knee pain but this is chronic. Pain is 8 out of 10. No nausea no vomiting. No fever chills. No trauma. No urinary complaint. She was concerned that it may be her ovary since her mom passed from ovarian cancer. She had a normal Pap smear done 6 months ago. Allergies: Coded Allergies: No Known Allergies (Unverified , 08/31/14) COVID-19 Screening Contact w/high risk pt: No Experienced COVID-19 symptoms?: No COVID-19 Testing performed INTERACTIVE DESIGNER: No Patient History Past Medical History: see triage record, old chart reviewed, DM Past Surgical History: other Pertinent Family History: none Social History: Denies: smoking Last Menstrual Period: na Now: No Immunizations: other Reviewed Nursing Documentation: PMH: Agreed; PSxH: Agreed Nursing Documentation-PMH Hx Cardiac Problems: Yes - 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, High Cholesterol Hx Hypertension: No Hx Asthma: No Hx Diabetes: Yes - TYPE 2 Hx Cancer: No - family hx of ovarian cancer Hx Gastrointestinal Problems: No - hernia Hx Spinal Cord Injury: Yes - Bulging disc s/p fall 2009 Review of Systems Eye: Denies: eye pain, blurred vision ENT: Denies: ear pain, nose congestion, throat swelling Respiratory: Denies: cough, shortness of breath Cardiovascular: Denies: chest pain, palpitations Gastrointestinal: Reports: abdominal pain; Denies: diarrhea, nausea, vomiting Musculoskeletal: Denies: back pain, joint pain Skin: Denies: rash Neurological: Denies: headache, numbness Endocrine: Denies: increased thirst, increased urine Hematologic/Lymphatic: Denies: easy bruising All Other Systems: negative except mentioned in HPI Physical Exam Vital Signs Date Time Temp Pulse Resp B/P (MAP) Pulse Ox O2 Delivery O2 Flow Rate FiO2 12/17/19 21:39 98.4 85 18 112/73 (86) 98 Room Air Vitals normal Sp02 EP Interpretation: reviewed, normal General Appearance: well appearing, no apparent distress, alert, obese Head: normocephalic, atraumatic Eyes: bilateral eye PERRL, bilateral eye EOMI ENT: hearing grossly normal, normal pharynx Neck: full range of motion, supple, no meningismus Respiratory: chest non-tender, lungs clear, normal breath sounds Cardiovascular #1: regular rate, rhythm, no murmur Gastrointestinal: normal bowel sounds, no mass, no organomegaly, no bruit, non- distended, tenderness - Left lower quadrant tenderness Musculoskeletal: back normal, normal range of motion, gait/station normal Psychiatric: mood/affect normal Medical Decision Making Diagnostic Impression: Primary Impression: Abdominal pain Qualified Codes: R10.32 - Left lower quadrant pain Additional Impressions: UTI (urinary tract infection) Qualified Codes: N30.00 - Acute cystitis without hematuria Umbilical hernia Qualified Codes: K42.9 - Umbilical hernia without obstruction or gangrene ER Course Patient presents with left lower quadrant abdominal pain. Pain is also over the hip area. This may be secondary to arthritic changes or a sending UTI. Denies any sepsis or acute abdomen. No obstruction. She does have umbilical hernia but this is unchanged from before. No evidence of incarceration or obstruction. She has no pain over it. Will discharge home. CT/MRI/US Diagnostic Results CT/MRI/US Diagnostic Results : Imaging Test Ordered: CT abdomen pelvis Impression Read by radiologist. Umbilical hernia. Otherwise negative. Last Vital Signs Date Time Temp Pulse Resp B/P (MAP) Pulse Ox O2 Delivery O2 Flow Rate FiO2 12/17/19 21:50 98.4 79 18 118/75 99 Room Air Status: improved Disposition: HOME, SELF-CARE Condition: Stable Scripts Levofloxacin (LEVOFLOXACIN*) 500 Mg Tablet 500 MG ORAL DAILY, #5 TAB Prov: J Carlos Aguilera MD 12/17/19 Hydrocodone/Acetaminophen 5-325* (HYDROCODONE/ACETAMINOPHEN 5-325*) 1 Each Tabl et 1 TAB ORAL Q6H PRN for For Pain, #20 TAB 0 Refills Prov: J Carlos Aguilera MD 12/17/19 Additional Instructions: Follow-up with your doctor in 7 days. Return if symptoms worsen. J Carlos Aguilera MD Dec 17, 2019 22:02
[2019-12-17 22:16] LABS: BILIRUBIN, URINE NEGATIVE (NEGATIVE); COLOR,URINE PALE YELLOW; GLUCOSE, URINE (UA) NEGATIVE (NEGATIVE); KETONES,URINE NEGATIVE (NEGATIVE); LEUKOCYTE ESTERASE ,URINE 1+ (NEGATIVE); NITRITE,URINE NEGATIVE (NEGATIVE); PH,URINE 5 (4.5-8.0); PROTEIN,URINE 2+ (NEGATIVE); UROBILINOGEN,URINE NORMAL MG/DL (0.0-1.0)
[2019-12-17 22:35] LABS: APPEARANCE,URINE SLIGHTLY CLOUDY
[2019-12-17] MEDS ORDERED: Levofloxacin 500mg tab ORAL ONE (22:45)
--- NOTE | 2019-12-17 23:18 | Diagnostic Imaging Report ---
EXAM: CT Abdomen and Pelvis Without Intravenous Contrast CLINICAL HISTORY: ABD PAIN TECHNIQUE: Axial computed tomography images of the abdomen and pelvis without intravenous contrast. CTDI is 29 mGy and DLP is 1866 mGy-cm. One or more of the following dose reduction techniques were used: automated exposure control, adjustment of the mA and/or kV according to patient size, use of iterative reconstruction technique. COMPARISON: No relevant prior studies available. FINDINGS: Lung bases: Unremarkable. No mass. No consolidation. ABDOMEN: Liver: Unremarkable. Gallbladder and bile ducts: Unremarkable. No calcified stones. No ductal dilation. Pancreas: Unremarkable. No ductal dilation. Spleen: Unremarkable. No splenomegaly. Adrenals: Unremarkable. No mass. Kidneys and ureters: Calcific and scarring at the lower pole right kidney. No obstructive uropathy. Stomach and bowel: Umbilical hernia with anterior protrusion of a loop of small bowel. This could be incarcerated but there is no adjacent stranding and no wall thickening or evidence for strangulation. No obstruction. PELVIS: Appendix: No findings to suggest acute appendicitis. Bladder: Unremarkable. No stones. Reproductive: Unremarkable as visualized. ABDOMEN and PELVIS: Intraperitoneal space: Unremarkable. No free air. No significant fluid collection. Bones/joints: No acute fracture. No dislocation. Soft tissues: See above. Vasculature: Unremarkable. No abdominal aortic aneurysm. Lymph nodes: Unremarkable. No enlarged lymph nodes. IMPRESSION: Umbilical hernia with anterior protrusion of a loop of small bowel. This could be incarcerated but there is no adjacent stranding and no wall thickening or evidence for strangulation. No other acute or inflammatory disease or bowel obstruction.
[2019-12-17] MEDS ORDERED: HYDROCODON-ACE1 EA15 ORAL (23:21)
[2019-12-17] MEDS ORDERED: LEVOFLOXACIN500 MG ORAL (23:21)
[2019-12-17 23:25] VITALS: BP 122/79
== END 2019-12-17 23:25 | disposition home or self-care (01) ==
LOC: EMR 22:15
DX: N30.00 Acute cystitis without hematuria (principal); K42.9 Umbilical hernia without obstruction or gangrene; R10.32 Left lower quadrant pain; E11.9 Type 2 diabetes mellitus without complications; Z86.711 Personal history of pulmonary embolism; E78.00 Pure hypercholesterolemia, unspecified; Z86.718 Personal history of other venous thrombosis and embolism; Z80.41 Family history of malignant neoplasm of ovary; E66.9 Obesity, unspecified; Z68.44 Body mass index [BMI] 60.0-69.9, adult; M79.651 Pain in right thigh; G89.29 Other chronic pain
CPT/HCPCS: 74176; 81003; 87086; 87181; Z7502; 99284